=== PATIENT | male | born 1930 | race Caucasian/White ===

== ENCOUNTER 2016-09-25 10:35 | Inpatient (IN) | payer MEDICARE, BC ==
[2016-09-25] MEDS ORDERED: NS 0.9% 1000 ML* 1,000 ML IV ONE (12:08)
[2016-09-25 12:53] LABS: Hematocrit 40 % (42-52); Hemoglobin 13.1 g/dl (14.0-18.0); Mean Corpuscular HGB Conc 32 g/dl (31-36); Mean Corpuscular Hemoglobin 31 pg (27-31); Mean Corpuscular Volume 94 fL (80-94); Mean Platelet Volume 8 um3 (7.4-10.4); Red Blood Count 4.29 10^6/ul (4.0-5.4); Red Cell Distribution Width 17 % (10.5-15)
--- NOTE | 2016-09-25 13:06 | RAD ---
HISTORY: Weakness COMPARISONS: June 24, 2014 VIEWS:1: Single frontal portable view of the chest at 12:35 PM FINDINGS: LINES AND TUBES: None. CARDIOMEDIASTINAL SILHOUETTE: The cardiomediastinal silhouette is normal for portable technique. PLEURA: The costophrenic angles are sharp. No pleural abnormalities are noted. LUNG PARENCHYMA: The lungs are clear. ABDOMEN: The upper abdomen is clear. There is no subphrenic gas. BONES AND SOFT TISSUES: No bone or soft tissue abnormalities are noted. IMPRESSION: NO ACTIVE CARDIOPULMONARY DISEASE.
[2016-09-25 13:09] LABS: C Reactive Protein 94.26 mg/L (< 5.00); Calcium 8.5 mg/dL (8.6-10.3); EGFR Non-African American 53.7 (>60); Globulin 3.7 g/dL (2-4); Magnesium 2.3 mg/dL (1.9-2.7); Potassium 3.4 mmol/L (3.5-5.0); Total Bilirubin 1.8 mg/dL (0.2-1.0); Total Protein 6.7 g/dL (6.4-8.9)
[2016-09-25 13:10] LABS: Troponin I 0.03 ng/mL (<0.04)
[2016-09-25 13:22] LABS: Urine Bacteria Absent (Absent); Urine Bilirubin Negative (Negative); Urine Glucose Negative (Negative); Urine Nitrite Negative (Negative)
[2016-09-25 13:24] LABS: TSH (Thyroid Stimulating Horm) 0.46 mcIU/mL (0.34-5.60)
[2016-09-25 15:01] LABS: Erythrocyte Sed Rate 85 mm/Hr (0-40)
[2016-09-25] MEDS ORDERED: Metoprolol Tartrate IV* 1 MG/ML 5 ML VIAL IV ONE (15:25)
[2016-09-25] MEDS ORDERED: Metoprolol Tartrate TAB* 25 MG PO ONE ×2 (17:58→21:32)
--- NOTE | 2016-09-25 18:02 | ED ---
Carmella Avalos Erika, scribed for Song Louis MD on 09/25/16 at 1246 . Complex/Multi-Sys Presentation - HPI Summary HPI Summary: Patient is an 85-year-old male presenting to the ED with a CC of gradually worsening generalized weakness over the past few months. Per , patient has transitioned from a cane to a walker in this time. Last night, patient developed pain in the left leg - worst at the left buttock and left ankle. Patient slipped out of his bed after the pain began, and was unable to get himself back into bed due to his generalized weakness. Pain has improved, and is now rated a 3/10. Patient was recently diagnosed with polymyalgia rheumatic a few months ago, which believes may be related. Patient also notes back pain when bending over, as well as SOB with exertion and pedal edema. He denies focal weakness, cough, chest congestion, chest pain, abdominal pain, and diarrhea. Hx A Fib - takes metoprolol - had tried Xarelto but led to hematuria. Hx prostate cancer that metastasized to the bone - pt takes Zytiga, and had a prostatectomy. Hx melanoma, necrotizing fasciitis. reports that she would be okay taking care of the pt, but wants her home set up adequately, so requests a psychologist social consult. - History Of Current Complaint Chief Complaint: EDWeakness Time Seen by Provider: 09/25/16 11:30 Hx Obtained From: Patient, Family/Manager Activities - Onset/Duration: Gradual Onset, Lasting Weeks, Worse Since - gradually worsening Timing: Constant Severity Currently: Moderate Severity Initially: Mild Associated Signs And Symptoms: Positive: Weakness, SOB, Edema. Negative: Cough , Chest Pain, Diarrhea, Abdominal Pain - Allergies/Home Medications Allergies/Adverse Reactions: Allergies Allergy/AdvReac Type Severity Reaction Status Date / Time Penicillamine Allergy Unknown Unknown Verified 04/07/14 22:46 Reaction Details Home Medications: Home Medications Abiraterone (NF) [Zytiga (NF)] 1,000 mg PO DAILY 09/25/16 [History Confirmed 03/06] Ascorbic Acid TAB* [Vitamin C TAB*] 500 mg PO DAILY 09/25/16 [History Confirmed 09/25/16] Furosemide TAB* [Lasix TAB*] 80 mg PO DAILY 09/25/16 [History Confirmed 09/25/16 ] Levothyroxine TAB* [Synthroid TAB*] 75 mcg PO DAILY 09/25/16 [History Confirmed 09/25/16] Metoprolol Succinate XL TAB* [Toprol XL TAB*] 50 mg PO DAILY 09/25/16 [History Confirmed 09/25/16] Multiple Vitamins W/ Minerals [Eye Vitamins & Minerals] 1 tab PO BID 09/25/16 [ History Confirmed 09/25/16] Potassium Chloride [Klor-Con Sprinkle] 20 meq PO BID 09/25/16 [History Confirmed 09/25/16] predniSONE TAB* [Deltasone TAB*] 5 mg PO QPM 09/25/16 [History Confirmed ] predniSONE TAB* [Deltasone TAB*] 10 mg PO QAM 09/25/16 [History Confirmed ] PMH/Surg Hx/FS Hx/Imm Hx Endocrine/Hematology History: Reports: Hx Thyroid Disease - Hypo Denies: Hx Diabetes, Hx Systemic Lupus Erythematosus, Hx Sickle Cell Disease Cardiovascular History: Reports: Hx Atrial Fibrillation Denies: Hx Congestive Heart Failure, Hx Hypertension Respiratory History: Denies: Other Respiratory Problems/Disorders History: Denies: Hx Dialysis, Hx Kidney Infection, Hx Kidney Stones, Hx Renal Disease , Other Problems/Disorders Musculoskeletal History: Reports: Other Musculoskeletal History - 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) Denies: Hx Arthritis, Hx Rheumatoid Arthritis, Hx Bursitis, Hx Tendonitis Sensory History: Denies: Hx Cataracts, Hx Contacts or Glasses, Hx Glaucoma, Hx Hearing Aid Opthamlomology History: Denies: Hx Cataracts, Hx Contacts or Glasses, Hx Glaucoma Neurological History: Denies: Other Neuro Impairments/Disorders - Cancer History Cancer Type, Location and Year: PROSTATE CA met to bone Hx Chemotherapy: No - Surgical History Surgery Procedure, Year, and Place: Prostatectomy (1999) Hx Anesthesia Reactions: No - Immunization History Date of Tetanus Vaccine: unknown Infectious Disease History: Yes Infectious Disease History: Denies: Traveled Outside the [place] in Last 30 Days - Family History Known Family History: Negative: Cardiac Disease - Social History Occupation: Retired Lives: With Family Alcohol Use: Occasionally Hx Substance Use: No Substance Use Type: Reports: None Hx Tobacco Use: No Smoking Status (MU): Never Smoked Tobacco Review of Systems Negative: Chest Pain Positive: Shortness Of Breath. Negative: Cough Negative: Abdominal Pain, Diarrhea Musculoskeletal: Other - LLE pain Positive: Myalgia - back pain, Edema - pedal Positive: Weakness All Other Systems Reviewed And Are Negative: Yes Physical Exam Triage Information Reviewed: Yes Vital Signs On Initial Exam: Initial Vitals Temp Pulse Resp BP Pulse Ox 97.4 F 136 15 108/85 91 09/25/16 11:01 09/25/16 11:01 09/25/16 11:01 09/25/16 11:01 09/25/16 11:01 Vital Signs Reviewed: Yes Appearance: Positive: Well-Appearing, No Pain Distress Skin: Positive: Warm, Skin Color Reflects Adequate Perfusion, Dry Head/Face: Positive: Normal Head/Face Inspection Eyes: Positive: EOMI, TUNG ENT: Positive: Normal ENT inspection Neck: Positive: Supple, Nontender Respiratory/Lung Sounds: Positive: Clear to Auscultation, Breath Sounds Present Cardiovascular: Positive: Tachycardia - with irregularly irregular rhythm Abdomen Description: Positive: Nontender, Soft Bowel Sounds: Positive: Present Musculoskeletal: Positive: Other - Generalized weakness. No tenderness to the left hip or buttocks Neurological: Positive: Alert, Oriented to Person Place, Time, Other - No focal neurological deficits. Generalized weakness Psychiatric: Positive: Affect/Mood Appropriate Diagnostics - Vital Signs Vital Signs Temp Pulse Resp BP Pulse Ox 09/25/16 11:01 97.4 F 136 15 108/85 91 - Laboratory Lab Results: Lab Results 09/25/16 09/25/16 09/25/16 Range/Units 12:40 12:40 12:40 WBC 17.0 H (3.5-10.8) 10^3/ul RBC 4.29 (4.0-5.4) 10^6/ul Hgb 13.1 L (14.0-18.0) g/dl Hct 40 L (42-52) % MCV 94 (80-94) fL MCH 31 (27-31) pg MCHC 32 (31-36) g/dl RDW 17 H (10.5-15) % Plt Count 234 (150-450) 10^3/ul MPV 8 (7.4-10.4) um3 Neut % (Auto) 94.1 H (38-83) % Lymph % (Auto) 2.5 L (25-47) % [place] % (Auto) 3.2 (1-9) % Eos % (Auto) 0.1 (0-6) % Baso % (Auto) 0.1 (0-2) % Absolute Neuts (auto) 16.0 H (1.5-7.7) 10^3/ul Absolute Lymphs (auto) 0.4 L (1.0-4.8) 10^3/ul Absolute Monos (auto) 0.5 (0-0.8) 10^3/ul Absolute Eos (auto) 0 (0-0.6) 10^3/ul Absolute Basos (auto) 0 (0-0.2) 10^3/ul Absolute Nucleated RBC 0.02 10^3/ul Nucleated RBC % 0.1 ESR 85 H (0-40) mm/Hr INR (Anticoag Therapy) 1.17 H (0.89-1.11) APTT 29.5 (26.0-36.3) seconds Sodium (133-145) mmol/L Potassium (3.5-5.0) mmol/L Chloride (101-111) mmol/L Carbon Dioxide (22-32) mmol/L Anion Gap (2-11) mmol/L BUN (6-24) mg/dL Creatinine (0.67-1.17) mg/dL Est GFR ( Amer) (>60) Est GFR (Non-Af Amer) (>60) BUN/Creatinine Ratio (8-20) Glucose (70-100) mg/dL Lactic Acid (0.5-2.0) mmol/L Calcium (8.6-10.3) mg/dL Magnesium (1.9-2.7) mg/dL Total Bilirubin (0.2-1.0) mg/dL AST (13-39) U/L ALT (7-52) U/L Alkaline Phosphatase (34-104) U/L CK-MB (CK-2) (0.6-6.3) ng/mL Troponin I (<0.04) ng/mL C-Reactive Protein (< 5.00) mg/L B-Natriuretic Peptide ( - 100) pg/mL Total Protein (6.4-8.9) g/dL Albumin (3.2-5.2) g/dL Globulin (2-4) g/dL Albumin/Globulin Ratio (1-3) Lipase (11.0-82.0) U/L TSH (0.34-5.60) mcIU/mL Urine Color Yellow Urine Appearance Cloudy Urine pH 7.0 (5-9) Ur Specific [facility] 1.005 L (1.010-1.030) Urine Protein Negative (Negative) Urine Ketones Negative (Negative) Urine Blood 2+ H (Negative) Urine Nitrate Negative (Negative) Urine Bilirubin Negative (Negative) Urine Urobilinogen Negative (Negative) Ur Leukocyte Esterase 3+ H (Negative) Urine WBC (Auto) 3+(>20/hpf) H (Absent) Urine RBC (Auto) 3+(>10/hpf) H (Absent) Urine Bacteria Absent (Absent) Urine Glucose Negative (Negative) 09/25/16 09/25/16 09/25/16 Range/Units 12:40 12:40 12:40 WBC (3.5-10.8) 10^3/ul RBC (4.0-5.4) 10^6/ul Hgb (14.0-18.0) g/dl Hct (42-52) % MCV (80-94) fL MCH (27-31) pg MCHC (31-36) g/dl RDW (10.5-15) % Plt Count (150-450) 10^3/ul MPV (7.4-10.4) um3 Neut % (Auto) (38-83) % Lymph % (Auto) (25-47) % [place] % (Auto) (1-9) % Eos % (Auto) (0-6) % Baso % (Auto) (0-2) % Absolute Neuts (auto) (1.5-7.7) 10^3/ul Absolute Lymphs (auto) (1.0-4.8) 10^3/ul Absolute Monos (auto) (0-0.8) 10^3/ul Absolute Eos (auto) (0-0.6) 10^3/ul Absolute Basos (auto) (0-0.2) 10^3/ul Absolute Nucleated RBC 10^3/ul Nucleated RBC % ESR (0-40) mm/Hr INR (Anticoag Therapy) (0.89-1.11) APTT (26.0-36.3) seconds Sodium 135 (133-145) mmol/L Potassium 3.4 L (3.5-5.0) mmol/L Chloride 97 L (101-111) mmol/L Carbon Dioxide 31 (22-32) mmol/L Anion Gap 7 (2-11) mmol/L BUN 23 (6-24) mg/dL Creatinine 1.28 H (0.67-1.17) mg/dL Est GFR ( Amer) 69.0 (>60) Est GFR (Non-Af Amer) 53.7 (>60) BUN/Creatinine Ratio 18.0 (8-20) Glucose 102 H (70-100) mg/dL Lactic Acid 1.5 (0.5-2.0) mmol/L Calcium 8.5 L (8.6-10.3) mg/dL Magnesium 2.3 (1.9-2.7) mg/dL Total Bilirubin 1.80 H (0.2-1.0) mg/dL AST 16 (13-39) U/L ALT 19 (7-52) U/L Alkaline Phosphatase 173 H (34-104) U/L CK-MB (CK-2) 4.4 (0.6-6.3) ng/mL Troponin I 0.03 (<0.04) ng/mL C-Reactive Protein 94.26 H (< 5.00) mg/L B-Natriuretic Peptide 579 H ( - 100) pg/mL Total Protein 6.7 (6.4-8.9) g/dL Albumin 3.0 L (3.2-5.2) g/dL Globulin 3.7 (2-4) g/dL Albumin/Globulin Ratio 0.8 L (1-3) Lipase 16 (11.0-82.0) U/L TSH 0.46 (0.34-5.60) mcIU/mL Urine Color Urine Appearance Urine pH (5-9) Ur Specific [facility] (1.010-1.030) Urine Protein (Negative) Urine Ketones (Negative) Urine Blood (Negative) Urine Nitrate (Negative) Urine Bilirubin (Negative) Urine Urobilinogen (Negative) Ur Leukocyte Esterase (Negative) Urine WBC (Auto) (Absent) Urine RBC (Auto) (Absent) Urine Bacteria (Absent) Urine Glucose (Negative) Result Diagrams: 09/25/16 12:40 09/25/16 12:40 Lab Statement: Any lab studies that have been ordered have been reviewed, and results considered in the medical decision making process. - Radiology CXR Radiology Interpretation Completed By: Radiologist - IMPRESSION: NO ACTIVE CARDIOPULMONARY DISEASE. - EKG 12:56 Cardiac Rate: Tachycardia - at 134 bpm EKG Rhythm: Atrial Fibrillation - Rapid EKG Interpretation: Flipped T waves in V2-V6 Re-Evaluation - Re-Evaluation First Eval Re-Evaluation Time: 13:44 Comment: Discussed blood work, EKG, and CXR results. Discussed plan of care. Patient is still tachycardic and would like to go home. Will discuss with patient's PCP, Dr. Laguna. Re-paged social work for their consult. Complex Multi-Symp Course/Dx Assessment/Plan: ADMIT HOSPITALIST STABLE - Diagnoses Provider Diagnoses: Weakness - Physician Notifications Discussed Care Of Patient With: Dr. Laguna (pt's PCP) at 13:55 - recommends admission for patient. Dr. Vidales (hospitalist) at 14:10 - agrees to admit. Discharge - Discharge Plan Condition: Stable Disposition: ADMITTED TO [facility] documentation as recorded by the Carmella sethi Erika accurately reflects the service I personally performed and the decisions made by me, Song Louis MD.
[2016-09-25] MEDS: predniSONE TAB* 10 MG PO SCH (18:03)
[2016-09-25] MEDS ORDERED: Ciprofloxacin TAB* 500 MG PO SCH (21:36)
--- NOTE | 2016-09-25 22:32 | HP ---
HISTORY AND PHYSICAL: DATE OF ADMISSION: 09/25/16 PRIMARY CARE PHYSICIAN: Dr. Laguna. CHIEF COMPLAINT: Weakness. HISTORY OF PRESENT ILLNESS: Mr. Rodriguez is an 85-year-old man with a past medical history of metastatic prostate cancer on Zytiga; AFib, not currently on anticoagulation; hypothyroidism; history of necrotizing fasciitis of the right thigh; CKD 2; urethroperineal fistula, status post chronic Cole; polymyalgia rheumatica; who presents to the hospital with progressive weakness. History was obtained from the patient and his . They state that the patient has been having problems since over the past 4 to 6 months with weakness that seems to be slowly but steadily progressing. They feel that his problems began last fall around the time he has diagnosed with polymyalgia rheumatica by Dr. Laguna. He initially responded well to prednisone; however, afterwards some of the symptoms returned and it became tougher and tougher for him to get around. He initially used a cane, but is now using a walker. They have noticed over the past week, the weakness seems to have gotten worse. Few nights ago, he was in his recliner chair and was unable to get out by himself and even with his 's help, took a significant amount of effort to get him out of the recliner. He states that this morning, he was in bed and was reaching for a glass of water. He went to swing his legs and had some left leg pain and subsequently was too weak to stay in the bed and slid out of bed on to the floor. His was unable to help him get up, so they called EMS who brought him to the hospital. The patient denies any fever, chills, URI symptoms , nausea, vomiting, shortness of breath, chest pain, abdominal pain. He does endorse fatigue and has chronic lower extremity edema which seems to be about at his baseline at the moment. The patient is followed by Dr. Stone regarding his metastatic prostate cancer and the last imaging done at the end of April 2016 showed some progression of his disease. However, his family states that he was started on Invega in May. PAST MEDICAL HISTORY: AFib, not on anticoagulation; metastatic prostate cancer ; hypothyroidism; polymyalgia rheumatica; CKD 2; history of necrotizing fasciitis; urethroperineal fistula, status post chronic Cole. PAST SURGICAL HISTORY: Right thigh fasciotomy, appendectomy, urethral dilatations, melanoma excision on the patient's face, tonsillectomy. HOME MEDICATIONS: 1. Toprol-XL 50 mg by mouth daily. 2. Klor-Con 20 mEq by mouth 2 times daily. 3. Lasix 80 mg by mouth daily. 4. Multivitamin one tablet by mouth 2 times daily. 5. Synthroid 75 mcg by mouth daily. 6. Prednisone 10 mg by mouth in the morning, 5 mg by mouth in the evening. 7. Vitamin C 500 mg by mouth daily. 8. Zytiga 1000 mg by mouth daily. ALLERGIES: The patient reports allergy to PENICILLIN. FAMILY HISTORY: Significant for mother and father both with cancer. SOCIAL HISTORY: The patient never smoked cigarettes in his life. Rarely drinks alcohol. Denies any illicit drug use. Lives at home with his and his dog. REVIEW OF SYSTEMS: A 12-point review of systems negative except as noted in the HPI. PHYSICAL EXAMINATION GENERAL: The patient is a pleasant elderly man, lying in bed, in no apparent distress. VITAL SIGNS: On admission, temperature 97.4, heart rate of 136, respiratory rate of 15, O2 saturation 91% on room air, blood pressure 108/85. HEENT: Pupils equal, round, and reactive to light and accommodation. Anicteric sclerae. Dry mucous membranes. No cervical adenopathy. LUNGS: Clear to auscultation bilaterally. No wheezes, rales, or rhonchi. CARDIOVASCULAR: Irregularly irregular, tachycardic. No murmurs, gallops, or rubs. ABDOMEN: Soft, nontender, nondistended, obese. Bowel sounds positive. EXTREMITIES: The patient with some mild pitting lower extremity edema to the mid to low parker reportedly at or better than baseline as per the patient's . NEURO: The patient is alert and oriented x3. Strength is 5/5 throughout upper extremities. The patient has some weakness in bilateral hip flexion. No numbness or tingling, or decreased sensation. LABS AND DIAGNOSTICS: White blood cell count of 17, hemoglobin of 13, hematocrit of 40, platelets of 234. INR of 1.17. ESR of 85, CRP of 94. Sodium of 135, potassium 3.4, chloride of 97, carbon dioxide of 31, BUN of 23, creatinine 1.28, glucose of 102, lactic acid of 1.5, magnesium of 2.3, total bilirubin of 1.8, alk phos of 173. B-natriuretic peptide of 579. Lipase of 16. TSH is 0.46. UA with 2+ blood, 3+ leuk esterase, 3+ wbc's, 3+ rbc's. Chest x-ray personally reviewed shows no acute disease. EKG personally reviewed shows AFib, tachycardia, some lateral ST depressions, and T-wave inversions that are likely rate related. ASSESSMENT AND PLAN: Progressive weakness in an 85-year-old male with a past medical history of AFib; metastatic prostate cancer; hypothyroidism; CKD 2; PMR ; urethroperineal fistula, status post chronic Cole catheter. 1. Progressive weakness. No clear etiology at this point. The patient does have an elevated ESR, CRP, and leukocytosis; however, his leukocytosis is a chronic issue. His elevated ESR and CRP could be related to polymyalgia rheumatica and this could be a relapse of this as his family reports it has been worse in the past week. We will increase his home prednisone to 20 mg in the morning and 10 mg at night. If the patient spikes a fever, we will consider an infectious etiology that is higher on the differential; however, at this time, it seems unlikely. However, the patient's chronic Cole and positive UA are always a potential source of infection. We will continue to monitor for now. I have ordered a PT evaluation for the patient. Will get MRI of the spine to evaluate for new mets, cord compression 2. AFib with RVR. The patient is tachycardic in the emergency department. He does seem dry on exam. He has received 1 L bolus in the ED. We will encourage p.o. intake. We will given one dose of IV metoprolol now and continue the patient's home dose of Toprol-XL. He is not on anticoagulation. 3. Hypothyroidism. TSH is within normal limits. Continue home Synthroid. 4. Polymyalgia rheumatica. Treatment as above. 5. Chronic lower extremity edema. We will hold the patient's Lasix for now, as well as his home potassium. We will reevaluate the patient's fluid status tomorrow. 6. DVT prophylaxis. The patient's says he bleeds very easily even on aspirin. We will write for SCDs. TIME SPENT: Total time spent on this admission 45 minutes, with over half the time spent face to face with the patient in counseling and coordinating care. CC: Dr. Laguna.* [id number]/CPS #: [id number] JONAH
[2016-09-25] MEDS: NS 0.9% 1000 ML* 1,000 ML IV SCH (22:49)
[2016-09-26] MEDS ORDERED: Diltiazem DRIP* 100 MG/100 ML ADDV.BAG IVPB ONE (01:02)
[2016-09-26] MEDS ORDERED: Diltiazem DRIP* 100 MG/100 ML ADDV.BAG IVPB SCH (02:00)
[2016-09-26 05:54] LABS: Add Diff/Slide Review? Slide Review Added; Comments Flag Yes; Hematocrit 36 % (42-52); Hemoglobin 11.9 g/dl (14.0-18.0); Mean Corpuscular HGB Conc 33 g/dl (31-36); Mean Corpuscular Hemoglobin 31 pg (27-31); Mean Corpuscular Volume 94 fL (80-94); Mean Platelet Volume 8 um3 (7.4-10.4); Red Blood Count 3.87 10^6/ul (4.0-5.4); Red Cell Distribution Width 17 % (10.5-15); White Blood Count 13.9 10^3/ul (3.5-10.8)
[2016-09-26] MEDS: Levothyroxine TAB* 75 MCG TAB PO SCH (05:58)
[2016-09-26 06:10] LABS: Albumin 2.6 g/dL (3.2-5.2); BUN/Creatinine Ratio 20.6 (8-20); Calcium 8.1 mg/dL (8.6-10.3); EGFR African American 84.9 (>60); Globulin 3.4 g/dL (2-4); Potassium 3.4 mmol/L (3.5-5.0)
[2016-09-26] MEDS: ABIRATERONE 250 MG PO SCH (07:16)
[2016-09-26] MEDS: NS 0.9% 1000 ML* 1,000 ML IV SCH (08:36)
[2016-09-26] MEDS: Metoprolol Tartrate TAB* 100 MG TAB PO SCH ×2 (08:37→20:20)
[2016-09-26] MEDS: Ascorbic Acid TAB* 500 MG PO SCH (08:37)
[2016-09-26] MEDS: predniSONE TAB* 20 MG PO SCH (08:37)
[2016-09-26] MEDS ORDERED: Metoprolol Succinate XL TAB* 50 MG PO SCH (09:00)
[2016-09-26] MEDS: Diltiazem TAB* 30 MG PO SCH ×2 (11:35→18:02)
--- NOTE | 2016-09-26 11:42 | RAD ---
Indication: Low back pain and weakness. Image sequences: Sagittal T1, T2, STIR, axial T1 and T2-weighted images of the lumbar spine were obtained. The vertebral bodies appear normal in height. There is low signal at the S2 vertebra on T1 and T2-weighted sequences. This is incompletely imaged on the axial images and may represent an area of sclerosis. This is not identified on a CT dated May 20, 2016 CT of the sacrum may be helpful. At L5-S1 degenerative disc disease is noted. Minimal spondylitic ridge is noted. No spinal or foraminal stenosis is noted. At L4-L5 degenerative disc disease with minimal broad-based protrusion and spondylitic ridge is noted. There is moderate degree of facet and ligamentous hypertrophy resulting in a moderate degree of spinal stenosis at this level. There may BE bilateral foraminal stenosis at this level due to facet arthropathy. L3-L4 degenerative disc disease with broad-based protrusion and spondylitic ridge flattens the thecal sac. Moderate degree of facet arthropathy is noted. Mild spinal stenosis is noted. At L3-L4 degenerative disc disease with spondylytic ridge flattens the thecal sac. Moderate degree of facet and ligamentous hypertrophy is noted resulting in mild spinal stenosis. At L2-L3 degenerative disc disease with spondylytic ridge flattens the thecal sac. Facet and ligamentous hypertrophy results in mild foraminal stenosis. At L1-L2 degenerative disc disease is noted. IMPRESSION: THERE IS SIGNAL LOSS IN THE S2 VERTEBRA SEEN ONLY ON THE SAGITTAL IMAGES ON BOTH T1 AND T2-WEIGHTED SEQUENCES. THIS MAY REPRESENT A SCLEROTIC LESION ALTHOUGH NONE IS IDENTIFIED ON PREVIOUS CT DATED MAY 20, 2016. BONE SCAN OF THE SAME DATE ALSO DEMONSTRATES NO SPECIFIC UPTAKE OF THIS AREA. AT L4-L5 DEGENERATIVE DISC DISEASE WITH BROAD-BASED PROTRUSION AND SPONDYLITIC RIDGE WELL MARKED BILATERAL FACET ARTHROPATHY RESULTS IN A MODERATE DEGREE OF SPINAL STENOSIS. THERE IS BILATERAL FORAMINAL STENOSIS AT THIS LEVEL. AT L3-L4 SPONDYLITIC RIDGE WITH MODERATE DEGREE OF FACET ARTHROPATHY RESULTS IN A MILD SPINAL STENOSIS AT THIS LEVEL. AT L2-L3 SPONDYLITIC RIDGE WITH MILD FACET ARTHROPATHY RESULTS IN MILD SPINAL STENOSIS AT THIS LEVEL.
--- NOTE | 2016-09-26 12:04 | PN ---
Subjective Date of Service: 09/26/16 Interval History: Patient seen this morning after coming back from MRI. Says he feels about the same as yesterday, no changes. Still weak in LEs. Slight back pain. No fever or chills. Spoke at length with patient's PCP (Dr. Laguna) this morning. Family History: Unchanged from Admission Social History: Unchanged from Admission Past Medical History: Unchanged from Admission Objective Active Medications: Abiraterone Acetate (Zytiga (Nf)) 1,000 mg PO DAILY [facility] Ascorbic Acid (Vitamin C Tab*) 500 mg PO DAILY [facility] Diltiazem HCl (Cardizem Tab*) 30 mg PO Q6HR [facility] Sodium Chloride (Ns 0.9% 1000 Ml*) 1,000 mls @ 100 mls/hr IV PER RATE [facility] Levothyroxine Sodium (Synthroid Tab*) 75 mcg PO DAILY@0600 [facility] Metoprolol Tartrate (Lopressor Tab*) 100 mg PO BID [facility] Prednisone (Deltasone Tab*) 20 mg PO DAILY WITH MEAL [facility] Prednisone (Deltasone Tab*) 10 mg PO 1700 [facility] Vital Signs 09/25/16 09/25/16 09/25/16 15:00 15:20 15:40 Temperature Pulse Rate 128 111 103 Respiratory 25 28 21 Rate Blood Pressure 102/67 103/72 99/70 (mmHg) O2 Sat by Pulse 96 95 95 Oximetry 09/25/16 09/25/16 09/25/16 16:27 16:55 17:50 Temperature 97.6 F 98.3 F Pulse Rate 119 Respiratory 14 20 Rate Blood Pressure 115/81 (mmHg) O2 Sat by Pulse 96 Oximetry 09/25/16 09/25/16 09/25/16 19:27 19:39 20:00 Temperature 99.0 F Pulse Rate 130 86 Respiratory 18 20 Rate Blood Pressure 137/89 (mmHg) O2 Sat by Pulse 96 Oximetry 09/26/16 09/26/16 09/26/16 00:20 01:25 01:30 Temperature 98.1 F Pulse Rate 135 Respiratory 20 28 25 Rate Blood Pressure 97/60 96/71 95/69 (mmHg) O2 Sat by Pulse 93 Oximetry 09/26/16 09/26/16 09/26/16 01:35 01:36 01:40 Temperature Pulse Rate Respiratory 22 23 21 Rate Blood Pressure 107/65 96/66 89/66 (mmHg) O2 Sat by Pulse Oximetry 09/26/16 09/26/16 09/26/16 01:45 02:00 02:14 Temperature Pulse Rate Respiratory 20 22 19 Rate Blood Pressure 103/72 98/72 100/62 (mmHg) O2 Sat by Pulse Oximetry 09/26/16 09/26/16 09/26/16 02:15 02:30 02:45 Temperature Pulse Rate Respiratory 19 24 24 Rate Blood Pressure 100/56 96/70 95/67 (mmHg) O2 Sat by Pulse Oximetry 09/26/16 09/26/16 09/26/16 03:00 03:11 03:29 Temperature 98.5 F Pulse Rate Respiratory 21 24 Rate Blood Pressure 95/66 39/20 (mmHg) O2 Sat by Pulse Oximetry 09/26/16 09/26/16 09:00 11:38 Temperature Pulse Rate 115 Respiratory 19 20 Rate Blood Pressure 104/75 104/68 (mmHg) O2 Sat by Pulse 95 Oximetry Oxygen Devices in Use Now: None Appearance: Elderly, M, laying in bed in NAD Eyes: No Scleral Icterus Ears/Nose/Mouth/Throat: Mucous Membranes Moist Neck: NL Appearance and Movements; NL JVP Respiratory: Symmetrical Chest Expansion and Respiratory Effort, Clear to Auscultation Cardiovascular: - - IRIR, tachycardia Abdominal: NL Sounds; No Tenderness; No Distention, No Hepatosplenomegaly Lymphatic: No Cervical Adenopathy Extremities: - - Mild LE edema Neurological: Alert and Oriented x 3, - - 3/5 strength in B/L hip flexors, distal plantarflexion and dorsiflexion 5/5, UE strength 5/5 Lines/Tubes/Other Access: Clean, Dry and Intact Levin Result Diagrams: 09/26/16 05:37 09/26/16 05:37 Additional Lab and Data: Microbiology and Other Data: Microbiology 09/25/16 16:00 Nasal Screen MRSA (PCR)(MEL) - Final Nasal Mrsa Negative Assess/Plan/Problems-Billing Assessment: Progressive weakness (particularly in LEs), fatigue, AFib with RVR in an 85 yo M with hx of AFib not on AC, metastatic prostate Ca, hypothyroidism, PMR, CKD2, urethroperineal fistula s/p chronic indwelling levin - Patient Problems (1) Weakness Current Visit: Yes Comment: Likely multifactorial. MRI L spine shows some moderate spinal stenosis. Possibly some contribution from PMR, have increased steroids, will recheck ESR/CRP tomorrow. Do not think there is any underlying infection. PT eval pending. (2) Afib Current Visit: Yes Comment: Still tachycardic. Placed on Diltiazem gtt overnight. Spoke with Dr. Laguna who states patient has had difficult HR to treat and he would not go too aggressive with therapy. Will transition patient to oral diltiazem. No AC. (3) Hypothyroidism Current Visit: Yes Comment: Continue synthroid (4) Polymyalgia rheumatica Current Visit: Yes Comment: Continue increased prednisone (5) Edema Current Visit: Yes Comment: Continue to hold Lasix (6) DVT prophylaxis Current Visit: Yes Comment: SCDs Status and Disposition: Inpatient for AFib, weakness. PT eval pending.
[2016-09-26] MEDS: predniSONE TAB* 10 MG PO SCH (16:50)
[2016-09-27] MEDS: Diltiazem TAB* 30 MG PO SCH ×4 (00:14→17:08)
[2016-09-27] MEDS: Levothyroxine TAB* 75 MCG TAB PO SCH (05:33)
[2016-09-27] MEDS: Ascorbic Acid TAB* 500 MG PO SCH (08:15)
[2016-09-27] MEDS: ABIRATERONE 250 MG PO SCH (08:15)
[2016-09-27] MEDS: Metoprolol Tartrate TAB* 100 MG TAB PO SCH ×2 (08:15→20:49)
[2016-09-27] MEDS: predniSONE TAB* 20 MG PO SCH (08:15)
--- NOTE | 2016-09-27 11:27 | PN ---
Subjective Date of Service: 09/27/16 Interval History: Patient seen this morning. Reports continued weakness and some LLE pain. Discussed MRI findings with patient and family ( and son). Did not do well with PT yesterday due to significant weakness. Family History: Unchanged from Admission Social History: Unchanged from Admission Past Medical History: Unchanged from Admission Objective Active Medications: Abiraterone Acetate (Zytiga (Nf)) 1,000 mg PO DAILY [facility] Ascorbic Acid (Vitamin C Tab*) 500 mg PO DAILY [facility] Diltiazem HCl (Cardizem Tab*) 30 mg PO Q6HR BAL Gabapentin (Neurontin Cap(*)) 200 mg PO TID BAL Levothyroxine Sodium (Synthroid Tab*) 75 mcg PO DAILY@0600 [facility] Metoprolol Tartrate (Lopressor Tab*) 100 mg PO BID BAL Prednisone (Deltasone Tab*) 20 mg PO DAILY WITH MEAL BAL Prednisone (Deltasone Tab*) 10 mg PO 1700 [facility] Vital Signs 09/26/16 09/26/16 09/26/16 11:38 15:00 20:00 Temperature 97.3 F Pulse Rate 115 111 Respiratory 20 16 20 Rate Blood Pressure 104/68 113/66 (mmHg) O2 Sat by Pulse 95 95 Oximetry 09/26/16 09/27/16 09/27/16 20:24 00:06 04:44 Temperature 97.7 F 97.8 F 97.6 F Pulse Rate 101 91 55 Respiratory 20 20 Rate Blood Pressure 108/58 120/80 96/57 (mmHg) O2 Sat by Pulse 97 95 95 Oximetry 09/27/16 09/27/16 09/27/16 05:30 06:41 06:45 Temperature Pulse Rate 96 Respiratory 18 18 Rate Blood Pressure 101/53 (mmHg) O2 Sat by Pulse Oximetry 09/27/16 07:51 Temperature 98.3 F Pulse Rate 44 Respiratory 18 Rate Blood Pressure 102/49 (mmHg) O2 Sat by Pulse 96 Oximetry Oxygen Devices in Use Now: None Appearance: Elderly, M, laying in bed in NAD Eyes: No Scleral Icterus Ears/Nose/Mouth/Throat: Mucous Membranes Moist Neck: NL Appearance and Movements; NL JVP Respiratory: Symmetrical Chest Expansion and Respiratory Effort, Clear to Auscultation Cardiovascular: - - IRIR Abdominal: NL Sounds; No Tenderness; No Distention Lymphatic: No Cervical Adenopathy Extremities: - - Mild LE edema Skin: No Rash or Ulcers Neurological: Alert and Oriented x 3, - - LE weakness, mostly in hip flexors Lines/Tubes/Other Access: Clean, Dry and Intact Levin Result Diagrams: 09/26/16 05:37 09/26/16 05:37 Additional Lab and Data: Microbiology and Other Data: Microbiology 09/25/16 16:00 Nasal Screen MRSA (PCR)([facility]) - Final Nasal Mrsa Negative Assess/Plan/Problems-Billing Assessment: Progressive weakness (particularly in LEs), fatigue, AFib with RVR in an 85 yo M with hx of AFib not on AC, metastatic prostate Ca, hypothyroidism, PMR, CKD2, urethroperineal fistula s/p chronic indwelling levin - Patient Problems (1) Weakness Current Visit: Yes Comment: Likely multifactorial. MRI L spine shows some moderate spinal stenosis. Will start gabapentin. ESR/CRP have not responded to increased steroids. Do not think there is any underlying infection. Patient very weak with PT, will need placement. Family would prefer to take him home but they understand this would be a huge undertaking, to discuss rehab options, will place PMRU referral as well (2) Afib Current Visit: Yes Comment: Continue Metoprolol and Diltiazem. No AC. (3) Hypothyroidism Current Visit: Yes Comment: Continue synthroid (4) Polymyalgia rheumatica Current Visit: Yes Comment: Resume home prednisone (5) Edema Current Visit: Yes Comment: Continue to hold Lasix (6) DVT prophylaxis Current Visit: Yes Comment: SCDs Status and Disposition: Inpatient for AFib, weakness. Will likely need MINDY
[2016-09-27] MEDS: Gabapentin CAP(*) 100 MG PO SCH ×2 (13:05→20:53)
[2016-09-27] MEDS ORDERED: predniSONE TAB* 5 MG PO SCH (17:00)
[2016-09-27] MEDS ORDERED: Metoprolol Tartrate TAB* 25 MG PO ONE (20:30)
[2016-09-27] MEDS: Magnesium Hydroxide LIQ* 30 ML UDC PO SCH (20:54)
[2016-09-28] MEDS: Magnesium Hydroxide LIQ* 30 ML UDC PO SCH (00:21)
[2016-09-28] MEDS: Diltiazem TAB* 30 MG PO SCH ×4 (01:07→17:17)
[2016-09-28] MEDS: Levothyroxine TAB* 75 MCG TAB PO SCH (05:43)
[2016-09-28] MEDS: Gabapentin CAP(*) 100 MG PO SCH ×3 (08:04→21:20)
[2016-09-28] MEDS: ABIRATERONE 250 MG PO SCH (08:04)
[2016-09-28] MEDS: Metoprolol Tartrate TAB* 100 MG TAB PO SCH ×2 (08:05→21:17)
[2016-09-28] MEDS: Ascorbic Acid TAB* 500 MG PO SCH (08:05)
[2016-09-28] MEDS ORDERED: predniSONE TAB* 10 MG PO SCH (08:30)
--- NOTE | 2016-09-28 09:08 | PN ---
Subjective Date of Service: 09/28/16 Interval History: Patient seen this morning. States he was up in the chair yesterday, noted he was quite weak when he attempted to stand. Has been doing exercises and notices some improvement in LE strength this morning. No new complaints. Family History: Unchanged from Admission Social History: Unchanged from Admission Past Medical History: Unchanged from Admission Objective Active Medications: Abiraterone Acetate (Zytiga (Nf)) 1,000 mg PO DAILY [facility] Ascorbic Acid (Vitamin C Tab*) 500 mg PO DAILY [facility] Diltiazem HCl (Cardizem Tab*) 30 mg PO Q6HR BAL Gabapentin (Neurontin Cap(*)) 200 mg PO TID [facility] Levothyroxine Sodium (Synthroid Tab*) 75 mcg PO DAILY@0600 [facility] Metoprolol Tartrate (Lopressor Tab*) 100 mg PO BID BAL Prednisone (Deltasone Tab*) 5 mg PO 1700 [facility] Prednisone (Deltasone Tab*) 10 mg PO DAILY WITH MEAL [facility] Vital Signs 09/27/16 09/27/16 09/27/16 11:52 13:05 15:26 Temperature 97.2 F 97.4 F Pulse Rate 94 48 Respiratory 18 16 17 Rate Blood Pressure 108/64 90/60 (mmHg) O2 Sat by Pulse 95 94 Oximetry 09/27/16 09/27/16 09/27/16 17:16 19:35 20:00 Temperature 97.2 F Pulse Rate 92 90 Respiratory 16 18 18 Rate Blood Pressure 105/59 93/56 (mmHg) O2 Sat by Pulse 95 Oximetry 09/27/16 09/27/16 09/28/16 20:53 22:53 00:22 Temperature Pulse Rate 77 Respiratory 18 18 Rate Blood Pressure 97/62 (mmHg) O2 Sat by Pulse Oximetry 09/28/16 09/28/16 09/28/16 00:36 03:41 05:35 Temperature 97.3 F 98.0 F Pulse Rate 69 98 Respiratory 16 20 Rate Blood Pressure 96/60 90/68 (mmHg) O2 Sat by Pulse 96 Oximetry 09/28/16 09/28/16 07:31 08:04 Temperature 97.1 F Pulse Rate 57 Respiratory 16 Rate Blood Pressure 109/63 (mmHg) O2 Sat by Pulse 98 Oximetry Oxygen Devices in Use Now: None Appearance: Elderly, M, laying in bed in NAD Eyes: No Scleral Icterus Ears/Nose/Mouth/Throat: Mucous Membranes Moist Neck: NL Appearance and Movements; NL JVP Respiratory: Symmetrical Chest Expansion and Respiratory Effort, Clear to Auscultation Cardiovascular: - - IRIR Abdominal: NL Sounds; No Tenderness; No Distention Lymphatic: No Cervical Adenopathy Extremities: - - Mild LE edema Skin: No Rash or Ulcers Neurological: Alert and Oriented x 3, - - Slight improvement in LE hip flexors this AM although still quite weak, remainder of LE exam unchanged Result Diagrams: 09/26/16 05:37 09/26/16 05:37 Additional Lab and Data: Microbiology and Other Data: Microbiology 09/25/16 16:00 Nasal Screen MRSA (PCR)([facility]) - Final Nasal Mrsa Negative Assess/Plan/Problems-Billing Assessment: Progressive weakness (particularly in LEs), fatigue, AFib with RVR in an 85 yo M with hx of AFib not on AC, metastatic prostate Ca, hypothyroidism, PMR, CKD2, urethroperineal fistula s/p chronic indwelling levin - Patient Problems (1) Weakness Current Visit: Yes Comment: Likely multifactorial. MRI L spine shows some moderate spinal stenosis. Continue gabapentin. Patient very weak with PT, will need placement. Family would prefer to take him home but they understand this would be a huge undertaking, to discuss rehab options, will place PMRU referral as well (2) Afib Current Visit: Yes Comment: Continue Metoprolol and Diltiazem. No AC. Stop tele. (3) Hypothyroidism Current Visit: Yes Comment: Continue synthroid (4) Polymyalgia rheumatica Current Visit: Yes Comment: Home prednisone (5) Edema Current Visit: Yes Comment: Continue to hold Lasix (6) DVT prophylaxis Current Visit: Yes Comment: SCDs Status and Disposition: Inpatient for AFib, weakness. Will likely need MINDY
[2016-09-28] MEDS ORDERED: predniSONE TAB* 50 MG PO ONE (11:13)
[2016-09-29] MEDS: Diltiazem TAB* 30 MG PO SCH ×4 (01:03→17:42)
[2016-09-29] MEDS: Levothyroxine TAB* 75 MCG TAB PO SCH (05:26)
[2016-09-29] MEDS: Gabapentin CAP(*) 100 MG PO SCH ×3 (09:22→20:42)
[2016-09-29] MEDS: predniSONE TAB* 20 MG PO SCH (09:23)
[2016-09-29] MEDS: Ascorbic Acid TAB* 500 MG PO SCH (09:23)
[2016-09-29] MEDS: Metoprolol Tartrate TAB* 100 MG TAB PO SCH ×2 (09:25→20:44)
[2016-09-29] MEDS: ABIRATERONE 250 MG PO SCH (09:31)
--- NOTE | 2016-09-29 14:35 | PN ---
Subjective Date of Service: 09/29/16 Interval History: Patient seen this morning. No complaints. Says he thinks he continues to have improvement in the LEs with his exercises. Denies pain. Family History: Unchanged from Admission Social History: Unchanged from Admission Past Medical History: Unchanged from Admission Objective Active Medications: Abiraterone Acetate (Zytiga (Nf)) 1,000 mg PO DAILY [facility] Ascorbic Acid (Vitamin C Tab*) 500 mg PO DAILY [facility] Diltiazem HCl (Cardizem Tab*) 30 mg PO Q6HR [facility] Gabapentin (Neurontin Cap(*)) 200 mg PO TID [facility] Levothyroxine Sodium (Synthroid Tab*) 75 mcg PO DAILY@0600 [facility] Metoprolol Tartrate (Lopressor Tab*) 100 mg PO BID [facility] Prednisone (Deltasone Tab*) 60 mg PO DAILY WITH MEAL [facility] Vital Signs 09/28/16 09/28/16 09/28/16 15:21 15:28 17:21 Temperature 98.9 F Pulse Rate 69 Respiratory 16 16 Rate Blood Pressure 94/63 (mmHg) O2 Sat by Pulse 98 Oximetry 09/28/16 09/29/16 09/29/16 23:20 00:45 03:56 Temperature 97.5 F 97.4 F Pulse Rate 63 74 Respiratory 16 16 16 Rate Blood Pressure 94/58 96/64 (mmHg) O2 Sat by Pulse 96 93 Oximetry 09/29/16 09/29/16 09/29/16 05:18 07:43 07:55 Temperature 97.4 F Pulse Rate 73 102 Respiratory 20 16 Rate Blood Pressure 101/60 103/80 (mmHg) O2 Sat by Pulse 98 Oximetry 09/29/16 09/29/16 09/29/16 09:22 11:22 11:35 Temperature 97.2 F Pulse Rate 98 Respiratory 18 16 16 Rate Blood Pressure 106/63 (mmHg) O2 Sat by Pulse 98 Oximetry Oxygen Devices in Use Now: None Appearance: Elderly, M, laying in bed in NAD Eyes: No Scleral Icterus Ears/Nose/Mouth/Throat: Mucous Membranes Moist Neck: NL Appearance and Movements; NL JVP Respiratory: Symmetrical Chest Expansion and Respiratory Effort, Clear to Auscultation Cardiovascular: NL Sounds; No Murmurs; No JVD, - - IRIR Abdominal: NL Sounds; No Tenderness; No Distention Lymphatic: No Cervical Adenopathy Extremities: - - B/L LE edema Neurological: Alert and Oriented x 3, - - Slight improvement in hip flexors Lines/Tubes/Other Access: Clean, Dry and Intact Levin Result Diagrams: 09/26/16 05:37 09/26/16 05:37 Additional Lab and Data: Microbiology and Other Data: Microbiology 09/25/16 16:00 Nasal Screen MRSA (PCR)([facility]) - Final Nasal Mrsa Negative Assess/Plan/Problems-Billing Assessment: Progressive weakness (particularly in LEs), fatigue, AFib with RVR in an 85 yo M with hx of AFib not on AC, metastatic prostate Ca, hypothyroidism, PMR, CKD2, urethroperineal fistula s/p chronic indwelling levin - Patient Problems (1) Weakness Current Visit: Yes Comment: Likely multifactorial. MRI L spine shows some moderate spinal stenosis. Continue gabapentin. Dr. Laguna recommended burst of prednisone 60 mg daily (started 09/28). Patient very weak with PT, will need placement. Family would prefer to take him home but they understand this would be a huge undertaking, to discuss rehab options, will place PMRU referral as well (2) Afib Current Visit: Yes Comment: Continue Metoprolol and Diltiazem. No AC. Stop tele. (3) Hypothyroidism Current Visit: Yes Comment: Continue synthroid (4) Polymyalgia rheumatica Current Visit: Yes Comment: Prednisone 60 mg daily (Day 2). Improvement in inflammatory markers (5) Edema Current Visit: Yes Comment: Continue to hold Lasix (6) DVT prophylaxis Current Visit: Yes Comment: SCDs Status and Disposition: Inpatient for AFib, weakness. Will likely need MINDY
[2016-09-30] MEDS: Diltiazem TAB* 30 MG PO SCH ×4 (00:06→17:57)
[2016-09-30] MEDS: Levothyroxine TAB* 75 MCG TAB PO SCH (06:09)
[2016-09-30] MEDS: Gabapentin CAP(*) 100 MG PO SCH ×3 (10:12→20:46)
[2016-09-30] MEDS: predniSONE TAB* 20 MG PO SCH (10:12)
[2016-09-30] MEDS: ABIRATERONE 250 MG PO SCH (10:12)
[2016-09-30] MEDS: Ascorbic Acid TAB* 500 MG PO SCH (10:12)
[2016-09-30] MEDS: Metoprolol Tartrate TAB* 100 MG TAB PO SCH ×2 (10:13→20:48)
[2016-09-30 11:24] LABS: C Reactive Protein 22.36 mg/L (< 5.00)
--- NOTE | 2016-09-30 13:08 | PN ---
Subjective Date of Service: 09/30/16 Interval History: Patient seen this afternoon. Reports no new complaints. Was pleased with his progress with PT today, was able to use EZstand to stand up and get to the chair. Family History: Unchanged from Admission Social History: Unchanged from Admission Past Medical History: Unchanged from Admission Objective Active Medications: Abiraterone Acetate (Zytiga (Nf)) 1,000 mg PO DAILY [facility] Ascorbic Acid (Vitamin C Tab*) 500 mg PO DAILY [facility] Diltiazem HCl (Cardizem Tab*) 30 mg PO Q6HR [facility] Gabapentin (Neurontin Cap(*)) 200 mg PO TID [facility] Levothyroxine Sodium (Synthroid Tab*) 75 mcg PO DAILY@0600 [facility] Metoprolol Tartrate (Lopressor Tab*) 100 mg PO BID [facility] Prednisone (Deltasone Tab*) 60 mg PO DAILY WITH MEAL [facility] Vital Signs 09/29/16 09/29/16 09/29/16 13:17 15:17 16:02 Temperature 97.4 F Pulse Rate 50 Respiratory 16 18 Rate Blood Pressure 108/59 (mmHg) O2 Sat by Pulse 98 Oximetry 09/29/16 09/29/16 09/29/16 16:46 19:53 20:42 Temperature Pulse Rate 104 Respiratory 18 18 Rate Blood Pressure (mmHg) O2 Sat by Pulse Oximetry 09/29/16 09/30/16 09/30/16 23:52 07:35 07:59 Temperature 97.4 F Pulse Rate 60 156 Respiratory 16 18 18 Rate Blood Pressure 111/80 110/65 (mmHg) O2 Sat by Pulse 97 96 Oximetry 09/30/16 09/30/16 09/30/16 08:15 09:56 10:12 Temperature 97.6 F Pulse Rate 100 42 Respiratory 18 16 Rate Blood Pressure 105/63 (mmHg) O2 Sat by Pulse 95 Oximetry 09/30/16 11:33 Temperature 99.0 F Pulse Rate 115 Respiratory 16 Rate Blood Pressure 110/53 (mmHg) O2 Sat by Pulse 98 Oximetry Oxygen Devices in Use Now: None Appearance: Elderly, M, laying in bed in NAD Eyes: No Scleral Icterus Ears/Nose/Mouth/Throat: Mucous Membranes Moist Neck: NL Appearance and Movements; NL JVP Respiratory: Symmetrical Chest Expansion and Respiratory Effort, Clear to Auscultation Cardiovascular: - - IRIR Abdominal: NL Sounds; No Tenderness; No Distention Lymphatic: No Cervical Adenopathy Extremities: - - Improvement in LE edema Skin: No Rash or Ulcers Neurological: Alert and Oriented x 3, - - Hip flexor strength down a bit from yesterday, may be from fatigue Result Diagrams: 09/26/16 05:37 09/26/16 05:37 Additional Lab and Data: Microbiology and Other Data: Microbiology 09/25/16 16:00 Nasal Screen MRSA (PCR)([facility]) - Final Nasal Mrsa Negative Assess/Plan/Problems-Billing Assessment: Progressive weakness (particularly in LEs), fatigue, AFib with RVR in an 85 yo M with hx of AFib not on AC, metastatic prostate Ca, hypothyroidism, PMR, CKD2, urethroperineal fistula s/p chronic indwelling levin - Patient Problems (1) Weakness Current Visit: Yes Comment: Likely multifactorial. MRI L spine shows some moderate spinal stenosis. Continue gabapentin. Dr. Laguna recommended burst of prednisone 60 mg daily (started 09/28), will continue. He will contact Dr. 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 Patient will need placement. (2) Afib Current Visit: Yes Comment: Continue Metoprolol and Diltiazem. No AC. Has been difficult to control in the past, OK with non-persistent episodes of tachycardia. (3) Hypothyroidism Current Visit: Yes Comment: Continue synthroid (4) Polymyalgia rheumatica Current Visit: Yes Comment: Prednisone 60 mg daily (Day 3). Continued improvement in inflammatory markers (5) Edema Current Visit: Yes Comment: Continue to hold Lasix (6) DVT prophylaxis Current Visit: Yes Comment: SCDs Status and Disposition: Inpatient for AFib, weakness, PMR. Will likely need MINDY
[2016-09-30] MEDS ORDERED: Diltiazem TAB* 30 MG PO ONE (23:59)
[2016-10-01] MEDS: Levothyroxine TAB* 75 MCG TAB PO SCH (05:47)
[2016-10-01 07:40] VITALS: BP 95/57
[2016-10-01] MEDS ORDERED: Diltiazem CD CAP* 120 MG PO SCH (09:00)
[2016-10-01] MEDS: Gabapentin CAP(*) 100 MG PO SCH (09:03)
[2016-10-01] MEDS: Ascorbic Acid TAB* 500 MG PO SCH (09:03)
[2016-10-01] MEDS: ABIRATERONE 250 MG PO SCH (09:04)
[2016-10-01] MEDS: predniSONE TAB* 20 MG PO SCH (09:04)
[2016-10-01] MEDS: Metoprolol Tartrate TAB* 100 MG TAB PO SCH (09:04)
--- NOTE | 2016-10-01 11:49 | DS ---
CC: Dr. Laguna DISCHARGE SUMMARY: DATE OF ADMISSION: 09/25/16 DATE OF DISCHARGE: 10/01/16 PRIMARY CARE PHYSICIAN: Dr. Laguna. PRINCIPAL DISCHARGE DIAGNOSIS: Bilateral lower extremity weakness, possibly due to polymyalgia rheu matica and spinal stenosis. SECONDARY DIAGNOSES: 1. History of metastatic prostate cancer, on Zytiga. 2. Atrial fibrillation, not on anticoagulation. 3. Hypothyroidism. 4. Chronic kidney disease 2. 5. History of necrotizing fasciitis. 6. Urethroperineal fistula status post chronic Cole. DISCHARGE MEDICATION REGIMEN: 1. Diltiazem 120 mg by mouth daily. 2. Gabapentin 200 mg by mouth 3 times daily. 3. Metoprolol tartrate 100 mg by mouth 2 times daily. 4. Prednisone 60 mg by mouth daily. 5. Zytiga 1000 mg by mouth daily. 6. Vitamin C 500 mg by mouth daily. 7. Synthroid 75 mcg by mouth daily. 8. Multivitamin 1 tablet by mouth 2 times daily. STUDIES DONE DURING HOSPITALIZATION: Chest x-ray, impression: No active cardiopulmonary disease. MRI of the lumbar spine, impression: Possible sclerotic lesion in the S2 vertebrae and L4-L5 degene rative disk disease with broad-based protrusion and spondylitic ridge as well as marked bilateral fa cet arthropathy resulting in a moderate degree of spinal stenosis. There is bilateral foraminal radha nosis at this level. At L3- L4, spondylitic ridge with moderate degree of facet arthropathy resulti ng in mild spinal stenosis. At L2-L3, spondylitic ridge with mild facet arthropathy resulting in mi ld spinal stenosis. HISTORY OF PRESENT ILLNESS AND HOSPITAL SUMMARY: Please see my history and physical from 09/25/16 f or details. Briefly, Mr. Rodriguez is an 85-year-old male with a past medical history as above, who p resented to the hospital with progressive weakness. This had been worsening over the past weeks to months and has gotten to the point now where he was unable to get up from a chair and the day of adm ission he was reaching for a glass of water at his bed, he went to swing his legs out and slid out o f bed and was unable to get up. The patient had relatively benign labs in the hospital aside from a n elevated CRP and some mild AYESHA on admission. He has chronically elevated white blood cell count, which was slightly higher when he came in. Imaging was done as above that showed some spinal stenos is. It was felt that this could possibly due to polymyalgia rheumatica. I initially doubled his pr ednisone dose to 20 mg by mouth in the morning and 10 mg by mouth in the evening; however, this did not seem to have any effect on his inflammatory markers. I spoke further with Dr. Laguna in consul tation with Dr. Stone, recommended increasing him to 60 mg daily, which was started on 09/28/16. Ove r the following days his CRP began to drop. He had some improved lower extremity strength prior to the increased prednisone but he continued to move in the right direction. He was noted to be in [place] b during this hospitalization with rates occasionally uncontrolled; however, in speaking with Dr. Awilda holley, he has been notoriously difficult to control. Cardizem was added during this hospitalization and will be continued; however, would not titrate up his medications too much unless the patient be comes symptomatic. Prior to discharge, Dr. Laguna was going to discuss with Dr. Brady whether the patient may benefit from methotrexate or some other DMARD if this is possibly paraneoplastic-related polymyalgia rheuma codie. For now, we will continue the patient on 60 mg of prednisone until this is worked out further over the following days. The patient will be transferred to the [facility] for further rehab. TIME SPENT: Total time spent on this discharge, 35 minutes. This is a summary of the hospitalization; please see the full medical record for further details. [id number]/[facility] #: [id number]
== END 2016-10-01 10:30 | DRG 546 ==
LOC: ED 10:35 → MEDTELE 14:45 → SSU 09-30 22:00
PROVIDERS: ADMIT Hospitalist; ATTEND Hospitalist
DX: M35.3 Polymyalgia rheumatica (principal); C79.51 Secondary malignant neoplasm of bone; I48.91 Unspecified atrial fibrillation; C61 Malignant neoplasm of prostate; E03.9 Hypothyroidism, unspecified; D72.829 Elevated white blood cell count, unspecified; M48.06 Spinal stenosis, lumbar region; N18.2 Chronic kidney disease, stage 2 (mild); R60.0 Localized edema; R00.0 Tachycardia, unspecified; Z79.52 Long term (current) use of systemic steroids; Z88.0 Allergy status to penicillin; Z80.9 Family history of malignant neoplasm, unspecified; Z28.21 Immunization not carried out because of patient refusal; Z85.820 Personal history of malignant melanoma of skin
CPT/HCPCS: 36415; 71010; 72148; 80053; 81003; 81015; 82550; 82553; 83605; 83690; 83735; 83880; 84145; 84443; 84484; 85025; 85610; 85652; 85730; 86140; 87086; 87641; 93005; A9270-GY; J3490; J7512

== ENCOUNTER 2016-10-01 08:08 | Inpatient (IN) | payer MEDICARE, BC ==
[2016-10-01] MEDS ORDERED: Magnesium Hydroxide LIQ* 30 ML UDC PO PRN (14:05)
[2016-10-01] MEDS ORDERED: Acetaminophen TAB* 325 MG PO PRN (14:05)
[2016-10-01] MEDS ORDERED: Bisacodyl SUPP* 10 MG SUPP PR PRN (14:05)
[2016-10-01] MEDS ORDERED: Senna TAB PO PRN (14:05)
[2016-10-01] MEDS: Docusate CAP* 100 MG PO SCH (19:52)
[2016-10-01] MEDS: Gabapentin CAP(*) 100 MG PO SCH (19:58)
[2016-10-01] MEDS: Metoprolol Tartrate TAB* 100 MG TAB PO SCH (19:58)
--- NOTE | 2016-10-01 22:21 | HP ---
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 HISTORY OF PRESENT ILLNESS: Gonzales Rodriguez is an 85-year-old male. He has a medical history significant for metastatic prostate cancer. He currently takes Zytiga 1000 mg daily for this. The patient additionally has a history of atrial fibrillation but is not on anticoagulation. He was on Xarelto in the past but apparently had a GI bleed. He also does not take aspirin because of the history of GI bleed. The patient has a history of an episode of necrotizing fasciitis, which occurred in his right side following a Cole catheter insertion. The patient has a chronic Cole catheter since that time. He was on the rehab unit in 2012 because of weakness in his right lower extremity as a result of the necrotizing fasciitis. The patient came to [facility] s emergency room acutely on 09/25/16. He was complaining of 6 months of lower extremity weakness. He had been diagnosed with polymyalgia rheumatica by his primary care doctor. He seemed to respond well initially to prednisone. He was taking 10 mg in the morning and 5 mg in the evening. However, starting at the beginning of September, the weakness got precipitously worse. The patient was not able to get out of bed by himself, not able to get back into bed by himself. One day, when he was not able to get out of bed at well, he was brought to [facility]'s emergency room. He was admitted September 25. While on the medical service, he had an MRI of his lumbar spine that showed degenerative disk disease at L4-5 with bilateral foraminal stenosis at the levels. There was also mild foraminal stenosis seen at L3-4. There was nothing to explain the symptoms. The patient's prednisone was increased to 60 mg daily. His C-reactive protein seemed to begin to decline after that. It went from 94.26 to 38 to 22. The drop in C-reactive protein corresponded to strengthening of his lower extremities. He is still on prednisone 60 at this time. 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 The patient is felt to have physical therapy and occupational therapy needs. He is now being admitted for inpatient rehab so that he might return to independent living. PAST MEDICAL HISTORY: Significant for the aforementioned metastatic prostate cancer. He also has a history of necrotizing fasciitis. He has a chronic Cole catheter. He has a history of hypothyroidism and paroxysmal atrial fibrillation. CURRENT MEDICATIONS: Include: 1. Lopressor 100 mg twice a day. 2. He is also on Cardizem CD 120 mg daily. 3. Synthroid 75 mcg daily. 4. Prednisone 60 mg daily. 5. Zytiga 1000 mg daily. ALLERGIES: To PENICILLIN. SOCIAL HISTORY: The patient is a nonsmoker, rare drinker. He lives with his in a [place] in the [facility]. REVIEW OF SYSTEMS: The patient reports no current shortness of breath or chest pain. PHYSICAL EXAMINATION VITAL SIGNS: Temperature is 98.3, blood pressure is 100/57, pulse 82, and respirations 16. HEENT: His extraocular movements are intact. Tongue is midline. NECK: Supple. LUNGS: Sounds clear to auscultation bilaterally. HEART: Sounds regular. S1 and S2 audible. ABDOMEN: Soft and nontender. EXTREMITIES: He has trace edema in both lower extremities. NEUROLOGIC: He is awake, alert, and oriented. Muscle strength is 5/5 in both upper and lower extremities. FUNCTIONAL EXAM: The patient transfers with minimal amount of assistance. 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 PLAN: Our plan is integrate him into a comprehensive and therapeutic rehab program with the following goals: 1. Physical Therapy will work with the patient. They are going to work on functional transfer training and ambulation training with a walker. 2. Occupational Therapy will see the patient and work on his activities of daily living including toileting and toilet transfers. 3. PABLITO stockings for DVT prophylaxis. At this point, we are not going to start him on heparin because of his history of bleeding but we are going to try to delve into this history with Dr. Laguna. 4. His bowels will be regulated. 5. Adequate analgesia. 6. Continue prednisone at 60 mg daily. Follow C-reactive protein. At some point, we are going to try to taper his prednisone. 7. Continue Synthroid for hypothyroidism. 8. Continue his Zytiga for prostate cancer. 9. Continue gabapentin for neuropathic pain. 10. Family training as appropriate. 11. client services manager will be closely involved to make sure that any services and equipment that the patient requires are in place prior to discharge. 12. Advance directives: The patient did not wish to have CPR done in case his heart stops beating. We have written a DNR order in the chart, filled out a MOLST form. He did request intubation for respiratory distress if he was still breathing and had a pulse but was in distress. 13. Home with appropriate services. ESTIMATED LENGTH OF STAY: Two weeks. [id number]/CPS #: [id number] JONAH
[2016-10-02] MEDS: Levothyroxine TAB* 75 MCG TAB PO SCH (06:05)
[2016-10-02] MEDS: ABIRATERONE 250 MG PO SCH (06:06)
[2016-10-02] MEDS: Diltiazem CD CAP* 120 MG PO SCH (08:25)
[2016-10-02] MEDS: Ascorbic Acid TAB* 500 MG PO SCH (08:25)
[2016-10-02] MEDS: Gabapentin CAP(*) 100 MG PO SCH ×3 (08:25→20:12)
[2016-10-02] MEDS: predniSONE TAB* 20 MG PO SCH (08:25)
[2016-10-02] MEDS: Docusate CAP* 100 MG PO SCH ×2 (08:25→20:12)
[2016-10-02] MEDS: Metoprolol Tartrate TAB* 100 MG TAB PO SCH ×2 (08:25→20:12)
[2016-10-02 08:27] LABS: Hematocrit 41 % (42-52); Hemoglobin 13.5 g/dl (14.0-18.0); Mean Corpuscular HGB Conc 33 g/dl (31-36); Mean Corpuscular Hemoglobin 31 pg (27-31); Mean Corpuscular Volume 95 fL (80-94); Mean Platelet Volume 8 um3 (7.4-10.4); Red Blood Count 4.37 10^6/ul (4.0-5.4); Red Cell Distribution Width 17 % (10.5-15); White Blood Count 13.3 10^3/ul (3.5-10.8)
[2016-10-02 08:39] LABS: Albumin 2.7 g/dL (3.2-5.2); C Reactive Protein 16.86 mg/L (< 5.00); Calcium 7.7 mg/dL (8.6-10.3); EGFR African American 118.7 (>60); EGFR Non-African American 92.3 (>60); Globulin 3.5 g/dL (2-4); Potassium 4.4 mmol/L (3.5-5.0); Total Bilirubin 0.8 mg/dL (0.2-1.0); Total Protein 6.2 g/dL (6.4-8.9)
[2016-10-03] MEDS: Levothyroxine TAB* 75 MCG TAB PO SCH (05:34)
[2016-10-03] MEDS: Diltiazem CD CAP* 120 MG PO SCH (09:14)
[2016-10-03] MEDS: Metoprolol Tartrate TAB* 100 MG TAB PO SCH (09:14)
[2016-10-03] MEDS: Ascorbic Acid TAB* 500 MG PO SCH (09:14)
[2016-10-03] MEDS: predniSONE TAB* 20 MG PO SCH (09:14)
[2016-10-03] MEDS: Gabapentin CAP(*) 100 MG PO SCH ×3 (09:14→20:15)
[2016-10-03] MEDS: Docusate CAP* 100 MG PO SCH ×2 (09:15→20:15)
[2016-10-03] MEDS: ABIRATERONE 250 MG PO SCH (14:17)
[2016-10-03] MEDS: Famotidine TAB* 20 MG PO SCH (20:16)
[2016-10-03] MEDS: Metoprolol Tartrate TAB* 25 MG PO SCH (20:16)
[2016-10-04] MEDS: Levothyroxine TAB* 75 MCG TAB PO SCH (05:28)
[2016-10-04] MEDS: ABIRATERONE 250 MG PO SCH (06:51)
[2016-10-04] MEDS: Gabapentin CAP(*) 100 MG PO SCH ×3 (08:47→18:40)
[2016-10-04] MEDS: Methotrexate TAB* 2.5 MG PO SCH (08:47)
[2016-10-04] MEDS: predniSONE TAB* 20 MG PO SCH (08:47)
[2016-10-04] MEDS: Folic Acid TAB* 1 MG PO SCH (08:47)
[2016-10-04] MEDS: Famotidine TAB* 20 MG PO SCH ×2 (08:48→18:42)
[2016-10-04] MEDS: Diltiazem CD CAP* 120 MG PO SCH (08:48)
[2016-10-04] MEDS: Docusate CAP* 100 MG PO SCH ×2 (08:48→22:39)
[2016-10-04] MEDS: Ascorbic Acid TAB* 500 MG PO SCH (08:48)
[2016-10-04] MEDS: Metoprolol Tartrate TAB* 25 MG PO SCH ×2 (08:48→18:42)
--- NOTE | 2016-10-04 13:06 | PMRUTEAM ---
PMRU: Goals Current Status: Nursing: Current Status Skin Deviations [Generalized] Bruise Skin Deviations [Groin] Rash Skin Deviation Description [ both arms Generalized] Skin Deviation Description [ redness, #3 lotion Groin] Physical Therapy: Current Status Bed Mobility Assistance Mod Assist,2 or More Person Assist Transfer Moblility Assistance Supervision,Contact Guard Assist Transfer/Bed Mobility Rolling Walker Recommended Devices Ambulation Assistance Supervision,Contact Guard Assist Ambulation Assistive Devices Rolling Walker Number of Feet Patient 65' and 55' Ambulated Stairs Assistance Not Tested Stairs Recommended Devices Two Rails Number of Stairs 5 Curb Not Tested Occupational Therapy: Current Status Upper Body Dressing Supervision Lower Body Dressing Max Asst Bathing Supervision,Mod Assist Toileting 2 Person Assist Toilet Transfer Min Assist,2 Person Assist Shower Transfer Min Assist Eating Independent Rec Therapy: Current Status Summary of Assessment and Pt. was open to conversation - had a good sense of Clinical Impression humor and identified with many interests. Pt. states he enjoys his life very much. Pt. was interested in crossword puzzles and continued leisure visits. Treatment Goals Pt. will engage in leisure activities while on the unit. Treatment Plan Provide RT services and encourage involvement. Social Work: Current Status Discharge Plan return home with home care svs and family support Potential for Family Training pt's is involved and supportive Anticipated Discharge Home Destination Discharge With home care svs and family support Goals: Physical Therapy: Initial Goals Bed Mobility Assistance Independent Transfer Mobility Assistance Independent Transfer/Bed Mobility Railings Recommended Devices Ambulation Independent Ambulation Recommended Devices Rolling Walker Ambulation Distance 150 Stairs Assistance Independent Stair Recommended Devices Two Rails Number of Stairs 5 Home Exercise Program Independent Assistance Physical Therapy: Updated Goals Transfer/Bed Mobility Rolling Walker,Railings Recommended Devices Occupational Therapy: Initial Goals Goals to be Completed in (Days 10-14 ) Upper Body Bathing Routine Independent Lower Body Bathing Routine Modified Independent with Upper Body Dressing Routine Independent Lower Body Dressing Routine Modified Independent with Toilet Hygeine and Clothing Modified Independent with Management Routine Toilet Transfer Routine Modified Independent with Step-In Shower Transfer Modified Independent with Routine Functional Transfers for ADL Modified Independent with Grooming Routine Independent Feeding Routine Independent Social Work: Goals Discharge Plan return home with home care svs and family support Potential for Family Training pt's is involved and supportive Anticipated Discharge Home Destination Discharge With home care svs and family support Care Plan: Care Plan ADL's - Improve/Maintain Start: 10/03/16 11:57 Freq: DAILY Status: Active Target: Activity Type Activity Date Activity User E-Sign Co-Sign Detail Recorded Client Recorded Date Recorded By Document 10/03/16 11:57 [id number] [id number] 10/03/16 11:57 [id number] 10/03/16 11:57 PMRU Outcome: ADL's/ADL Transfers Orders/Interventions Occupational Therapy Evaluation & Treatment Patient to receive OT 5x/wk for 60-120 Therex min/day Self Care Management Group Therapy UE/LE ADL's with Assist Yes ADL Transfers with Assist Yes Toileting: Transfers,Clothing Management Yes ,Hygeine w/Assist Progression Toward Outcome/Goals Progressing Cardiovascular- Improve/Maintain Start: 10/01/16 16:31 Freq: DAILY Status: Active Target: Activity Type Activity Date Activity User E-Sign Co-Sign Detail Recorded Client Recorded Date Recorded By Document 10/03/16 14:32 [id number] [id number] 10/03/16 14:33 [id number] 10/03/16 14:32 PMRU Outcome: Cardiovascular Vital Signs q Shift for 48hrs Then BID Yes Daily Weight Ordered No Current Cardiovascular Outcome/Goal Maintain/ Achieve Baseline HR, BP , Perfusion Maintain/ Improve Perfusion Progression Toward Outcome/Goal Progressing DVT Prophylaxis- Improve/Maintain Start: 10/01/16 16:31 Freq: DAILY Status: Active Target: Activity Type Activity Date Activity User E-Sign Co-Sign Detail Recorded Client Recorded Date Recorded By Document 10/03/16 14:32 [id number] [id number] 10/03/16 14:33 [id number] 10/03/16 14:32 PMRU Outcome: DVT Prophylaxis Outcome/Goals Remains Free of DVT Complies with DVT Prophylaxis /Treatment Demonstrates Knowledge of DVT Prevention/ Treatment TEDS Stockings on Every AM, Off at HS Other Outcome/Goals apolinar wraps Progression Toward Outcome/Goals Progressing Discharge Planning - Improve/Maintain Start: 10/01/16 16:31 Freq: DAILY Status: Active Target: Activity Type Activity Date Activity User E-Sign Co-Sign Detail Recorded Client Recorded Date Recorded By Document 10/03/16 14:32 [id number] [id number] 10/03/16 14:33 [id number] 10/03/16 14:32 PMRU Outcome: Discharge Planning Update Patient Family No Outcome/Goals Demonstrates Understanding of Discharge Plan Progression Toward Outcome/Goals Progressing Education-Improve/Maintain Start: 10/01/16 16:31 Freq: DAILY Status: Active Target: Activity Type Activity Date Activity User E-Sign Co-Sign Detail Recorded Client Recorded Date Recorded By Document 10/03/16 14:32 [id number] [id number] 10/03/16 14:33 [id number] 10/03/16 14:32 PMRU Outcome: Education Outcome/Goals Demonstrates Skills Encourage Questions Progression Toward Outcome/Goals Progressing /GI-Improve/Maintain Start: 10/01/16 16:31 Freq: DAILY Status: Active Target: Activity Type Activity Date Activity User E-Sign Co-Sign Detail Recorded Client Recorded Date Recorded By Document 10/03/16 22:26 [id number] 10/03/16 22:27 [id number] 10/03/16 22:26 PMRU Outcome: Genitourinary/ Gastrointestinal Genitourinary- Outcome/Goals Remain Free of Hospital- Acquired UTI Gastrointestinal-Outcome/Goals Maintain/ Achieve Bowel Regularity in Accordance with Pt's Baseline Remain Free of Emesis Prevent Constipation Laxatives as Ordered Other Outcome/Goals patient has chronic levin, moderate amount of leakage in depends. Provider aware. Progression Toward Outcome/Goals - Progressing Progression Toward Outcome/Goals - GI Progressing Genitourinary- Outcome/Goals Met Remain Free of Hospital- Acquired UTI Gastrointestinal-Outcome/Goals Met Remain Free of Emesis Prevent Constipation Laxatives as Ordered Medication Administration Start: 10/01/16 16:31 Freq: DAILY Status: Active Target: Activity Type Activity Date Activity User E-Sign Co-Sign Detail Recorded Client Recorded Date Recorded By Document 10/03/16 14:32 [id number] 10/03/16 14:33 [id number] 10/03/16 14:32 PMRU Outcome: Medication Administration Assess Patient Knowledge/Teach Med Yes Education for all Meds Outcome/Goals Patient Independent with Medication Administration at Home Demonstrates Understanding Progression Towards Outcome/Goals Progressing Is Patient Going Home on Lovenox? No Mobility- Improve/Maintain Start: 10/03/16 13:10 Freq: DAILY Status: Active Target: Activity Type Activity Date Activity User E-Sign Co-Sign Detail Recorded Client Recorded Date Recorded By Document 10/04/16 12:09 [id number] [email or web address] 10/04/16 12:09 [id number] 10/04/16 12:09 PMRU Outcome: Mobility Physical Therapy Evaluation and Yes Treatment Activity OOB with Assistance Yes WBAT Yes Device Yes Assistance Yes Patient to be seen 5x/wk for 60-120 min/ Therex day for: Mobility Training Gait Training Outcome/Goals Maintain/ Achieve Baseline Mobility Status Improve Mobility Status Demonstrates Proper Use of Assistive Devices Free from Complications of Immobility Progression Toward Outcome/Goals Progressing Bed Mobility Yes: Modified independent Transfers Yes: Independent with R/W Gait x ft Yes: Independent with R/W 150' Up/Down Stairs Yes: Modified independent 5 with bilat railings Respiratory - Improve/Maintain Start: 10/01/16 16:31 Freq: DAILY Status: Active Target: Activity Type Activity Date Activity User E-Sign Co-Sign Detail Recorded Client Recorded Date Recorded By Document 10/03/16 14:32 [id number] 10/03/16 14:33 [id number] 10/03/16 14:32 PMRU Outcome: Respiratory Does Patient Have a Trach No Outcome/Goals Maintain/ Improve Baseline Respiratory Status Prevent Pneumonia/ Atelectasis Progression Toward Outcome/Goals Progressing Safety- Improve/Maintain Start: 10/01/16 16:31 Freq: DAILY Status: Active Target: Activity Type Activity Date Activity User E-Sign Co-Sign Detail Recorded Client Recorded Date Recorded By Document 10/03/16 14:32 [id number] 10/03/16 14:33 [id number] 10/03/16 14:32 PMRU Outcome: Safety Outcome/Goals Remain Free of Injury or Harm Cooperates with Safety Measures for Least Restrictive Environment Prevent Falls/ Injury Progression Toward Outcome/Goals Progressing Skin- Improve/Maintain Start: 10/01/16 16:31 Freq: DAILY Status: Active Target: Activity Type Activity Date Activity User E-Sign Co-Sign Detail Recorded Client Recorded Date Recorded By Document 10/03/16 22:26 [id number] 10/03/16 22:26 [id number] 10/03/16 22:26 PMRU Outcome: Skin Skin Risk Level High Skin Orders Air Mattress Turn/Position q2hr While in Bed Outcome/Goals Maintain/ Improve Skin Intergrity Free from Decubitus Progression Toward Outcome/Goals Progressing Medicine Note: Length of Stay: 11 days Anticipated Discharge Destination: Home Tentative Discharge Date: 10/16/16 Discharged to: home
[2016-10-05] MEDS: Metoprolol Tartrate TAB* 25 MG PO SCH ×3 (00:17→21:01)
[2016-10-05] MEDS: Gabapentin CAP(*) 100 MG PO SCH ×4 (00:17→21:01)
[2016-10-05] MEDS: Levothyroxine TAB* 75 MCG TAB PO SCH (05:31)
[2016-10-05] MEDS: ABIRATERONE 250 MG PO SCH (06:26)
[2016-10-05] MEDS: predniSONE TAB* 20 MG PO SCH (09:39)
[2016-10-05] MEDS: Folic Acid TAB* 1 MG PO SCH (09:40)
[2016-10-05] MEDS: Ascorbic Acid TAB* 500 MG PO SCH (09:40)
[2016-10-05] MEDS: Docusate CAP* 100 MG PO SCH ×2 (09:40→21:08)
[2016-10-05] MEDS: Famotidine TAB* 20 MG PO SCH ×3 (09:40→21:01)
[2016-10-05] MEDS: Diltiazem CD CAP* 120 MG PO SCH (09:40)
[2016-10-05] MEDS ORDERED: Ondansetron ODT TAB* 4 MG PO ONE (12:00)
[2016-10-06] MEDS: Levothyroxine TAB* 75 MCG TAB PO SCH (06:08)
[2016-10-06] MEDS: ABIRATERONE 250 MG PO SCH (06:13)
[2016-10-06 09:02] LABS: Hematocrit 42 % (42-52); Hemoglobin 13.7 g/dl (14.0-18.0); Mean Corpuscular HGB Conc 33 g/dl (31-36); Mean Corpuscular Hemoglobin 31 pg (27-31); Mean Corpuscular Volume 94 fL (80-94); Mean Platelet Volume 9 um3 (7.4-10.4); Red Blood Count 4.46 10^6/ul (4.0-5.4); Red Cell Distribution Width 17 % (10.5-15); White Blood Count 17.5 10^3/ul (3.5-10.8)
[2016-10-06] MEDS: Gabapentin CAP(*) 100 MG PO SCH ×3 (10:07→20:07)
[2016-10-06] MEDS: predniSONE TAB* 20 MG PO SCH (10:08)
[2016-10-06] MEDS: Folic Acid TAB* 1 MG PO SCH (10:09)
[2016-10-06] MEDS: Famotidine TAB* 20 MG PO SCH ×2 (10:09→20:07)
[2016-10-06] MEDS: Ascorbic Acid TAB* 500 MG PO SCH (10:09)
[2016-10-06] MEDS: Docusate CAP* 100 MG PO SCH ×2 (10:11→20:07)
[2016-10-06] MEDS: Metoprolol Tartrate TAB* 25 MG PO SCH ×2 (10:17→20:57)
[2016-10-06] MEDS: Diltiazem CD CAP* 120 MG PO SCH (10:18)
[2016-10-07] MEDS: ABIRATERONE 250 MG PO SCH (06:23)
[2016-10-07] MEDS: Levothyroxine TAB* 75 MCG TAB PO SCH (06:23)
[2016-10-07] MEDS: Gabapentin CAP(*) 100 MG PO SCH ×3 (08:34→20:09)
[2016-10-07] MEDS: Ascorbic Acid TAB* 500 MG PO SCH (08:34)
[2016-10-07] MEDS: Diltiazem CD CAP* 120 MG PO SCH (08:34)
[2016-10-07] MEDS: Folic Acid TAB* 1 MG PO SCH (08:34)
[2016-10-07] MEDS: Famotidine TAB* 20 MG PO SCH ×2 (08:34→20:10)
[2016-10-07] MEDS: Docusate CAP* 100 MG PO SCH ×2 (08:34→20:08)
[2016-10-07] MEDS: predniSONE TAB* 20 MG PO SCH (08:34)
[2016-10-07] MEDS: Metoprolol Tartrate TAB* 25 MG PO SCH ×2 (08:35→20:09)
[2016-10-08] MEDS: Levothyroxine TAB* 75 MCG TAB PO SCH (05:34)
[2016-10-08] MEDS: ABIRATERONE 250 MG PO SCH (06:42)
[2016-10-08] MEDS: Metoprolol Tartrate TAB* 25 MG PO SCH ×2 (08:19→21:16)
[2016-10-08] MEDS: Gabapentin CAP(*) 100 MG PO SCH ×3 (08:19→21:16)
[2016-10-08] MEDS: Folic Acid TAB* 1 MG PO SCH (08:20)
[2016-10-08] MEDS: Diltiazem CD CAP* 120 MG PO SCH (08:20)
[2016-10-08] MEDS: Famotidine TAB* 20 MG PO SCH ×2 (08:20→21:17)
[2016-10-08] MEDS: Docusate CAP* 100 MG PO SCH ×2 (08:20→21:07)
[2016-10-08] MEDS: predniSONE TAB* 20 MG PO SCH (08:20)
[2016-10-08] MEDS: Ascorbic Acid TAB* 500 MG PO SCH (08:20)
--- NOTE | 2016-10-08 12:45 | PMRUTEAM ---
PMRU: Goals Current Status: Nursing: Current Status Skin Deviations [Generalized] Bruise Skin Deviations [Groin] Rash Skin Deviation Description [ both arms Generalized] Skin Deviation Description [ improving Groin] Bladder Current Status levin Bowel Current Status occasionnaly incontinent Nutrition Current Status eats 25% Medication Current Status knows his pills and takes whole with water Physical Therapy: Current Status Bed Mobility Assistance Mod Assist Transfer Moblility Assistance Min Assist,Mod Assist Transfer/Bed Mobility Rolling Walker Recommended Devices Transfer Mobility Comment Pt. requires mod to max A x 1 sit to stand Ambulation Assistance Supervision,Contact Guard Assist Ambulation Assistive Devices Rolling Walker Number of Feet Patient 50 Ambulated Ambulation Comment Pt. presents a slow short step reciprocal type gait pattern. Stairs Assistance Not Tested Stairs Recommended Devices Two Rails Number of Stairs 5 Curb Not Tested Occupational Therapy: Current Status Upper Body Dressing Min Assist Lower Body Dressing Max Asst Bathing Mod Assist,Max Asst Toileting Total Assist Toilet Transfer Mod Assist Shower Transfer Min Assist Eating Independent Rec Therapy: Current Status Summary of Assessment and RT assessment complete and pt. is aware of Clinical Impression services. Pt. requested crossword puzzles and continued leisure visits - both have been and will continue to be provided while on the unit. Pt. is social and in good spirits during visits. Treatment Goals Pt. will engage in leisure activities while on the unit. Treatment Plan Provide RT services and encourage involvement. Social Work: Current Status Discharge Plan return home with home care svs and family support Potential for Family Training pt's is involved and supportive Anticipated Discharge Home Destination Discharge With Lifetime Care and family support Nutrition: Current Status Monitoring Receiving regular diet with fair intake (25-50%). Regular bowel pattern. Note mild hyperglycemia (147) impacted by steroids. Regular diet remains appropriate. Will follow to encourage adequate intake. Goals: Physical Therapy: Initial Goals Bed Mobility Assistance Independent Transfer Mobility Assistance Independent Transfer/Bed Mobility Railings Recommended Devices Ambulation Independent Ambulation Recommended Devices Rolling Walker Ambulation Distance 150 Stairs Assistance Independent Stair Recommended Devices Two Rails Number of Stairs 5 Home Exercise Program Independent Assistance Physical Therapy: Updated Goals Bed Mobility Assistance Independent Transfer Mobility Assistance Independent Transfer/Bed Mobility Rolling Walker,Railings Recommended Devices Ambulation Assistive Devices Rolling Walker Ambulation Distance (ft) 150 Stairs Assistance Independent Stairs Recommended Devices Two Rails Number of Stairs 5 Home Exercise Program Independent Assistance Occupational Therapy: Initial Goals Goals to be Completed in (Days 10-14 ) Upper Body Bathing Routine Independent Lower Body Bathing Routine Modified Independent with Upper Body Dressing Routine Independent Lower Body Dressing Routine Modified Independent with Toilet Hygeine and Clothing Modified Independent with Management Routine Toilet Transfer Routine Modified Independent with Step-In Shower Transfer Modified Independent with Routine Functional Transfers for ADL Modified Independent with Grooming Routine Independent Feeding Routine Independent Nursing: Goals Bladder Goal levin Bowel Goal continent Nutrition Goal to eat 50-100 % Medication Goal met Nutrition: Goals Intervention Goals 1. Maintain adequate glycemic control per inpatient parameters. 2. Achieve adequate oral intake to support maintenance of lean body mass. Social Work: Goals Discharge Plan return home with home care svs and family support Potential for Family Training pt's is involved and supportive Anticipated Discharge Home Destination Discharge With Lifetime Care and family support Care Plan: Care Plan ADL's - Improve/Maintain Start: 10/03/16 11:57 Freq: DAILY Status: Active Target: Activity Type Activity Date Activity User E-Sign Co-Sign Detail Recorded Client Recorded Date Recorded By Document 10/07/16 11:38 [id number] 10/07/16 11:38 [id number] 10/07/16 11:38 PMRU Outcome: ADL's/ADL Transfers Orders/Interventions Occupational Therapy Evaluation & Treatment Patient to receive OT 5x/wk for 60-120 Therex min/day Self Care Management Group Therapy UE/LE ADL's with Assist Yes ADL Transfers with Assist Yes Toileting: Transfers,Clothing Management Yes ,Hygeine w/Assist Progression Toward Outcome/Goals Not Progressing Outcome/Goals Met Pt having increased difficulty with proximal BLE weakness today and needs 2A for STS. Cardiovascular- Improve/Maintain Start: 10/01/16 16:31 Freq: DAILY Status: Active Target: Activity Type Activity Date Activity User E-Sign Co-Sign Detail Recorded Client Recorded Date Recorded By Document 10/08/16 08:00 [id number] 10/08/16 11:08 [id number] 10/08/16 08:00 PMRU Outcome: Cardiovascular Vital Signs q Shift for 48hrs Then BID Yes Daily Weight Ordered No Current Cardiovascular Outcome/Goal Maintain/ Achieve Baseline HR, BP , Perfusion Maintain/ Improve Perfusion Progression Toward Outcome/Goal Progressing Outcome/Goals Met Comment HR irregular DVT Prophylaxis- Improve/Maintain Start: 10/01/16 16:31 Freq: DAILY Status: Active Target: Activity Type Activity Date Activity User E-Sign Co-Sign Detail Recorded Client Recorded Date Recorded By Document 10/08/16 08:00 [id number] 10/08/16 11:08 [id number] 10/08/16 08:00 PMRU Outcome: DVT Prophylaxis Outcome/Goals Remains Free of DVT Complies with DVT Prophylaxis /Treatment Demonstrates Knowledge of DVT Prevention/ Treatment TEDS Stockings on Every AM, Off at HS Other Outcome/Goals apolinar wraps Progression Toward Outcome/Goals Progressing Discharge Planning - Improve/Maintain Start: 10/01/16 16:31 Freq: DAILY Status: Active Target: Activity Type Activity Date Activity User E-Sign Co-Sign Detail Recorded Client Recorded Date Recorded By Document 10/07/16 13:39 [id number] 10/07/16 13:43 [id number] 10/07/16 13:39 PMRU Outcome: Discharge Planning Update Patient Family No Outcome/Goals Demonstrates Understanding of Discharge Plan Progression Toward Outcome/Goals Progressing Education-Improve/Maintain Start: 10/01/16 16:31 Freq: DAILY Status: Active Target: Activity Type Activity Date Activity User E-Sign Co-Sign Detail Recorded Client Recorded Date Recorded By Document 10/08/16 08:00 [id number] [email or web address] 10/08/16 11:08 [id number] 10/08/16 08:00 PMRU Outcome: Education Outcome/Goals Demonstrates Skills Encourage Questions Progression Toward Outcome/Goals Progressing /GI-Improve/Maintain Start: 10/01/16 16:31 Freq: DAILY Status: Active Target: Activity Type Activity Date Activity User E-Sign Co-Sign Detail Recorded Client Recorded Date Recorded By Document 10/08/16 08:00 [id number] 10/08/16 11:08 [id number] 10/08/16 08:00 PMRU Outcome: Genitourinary/ Gastrointestinal Genitourinary- Outcome/Goals Remain Free of Hospital- Acquired UTI Gastrointestinal-Outcome/Goals Maintain/ Achieve Bowel Regularity in Accordance with Pt's Baseline Remain Free of Emesis Prevent Constipation Laxatives as Ordered Other Outcome/Goals patient has chronic levin Progression Toward Outcome/Goals - Progressing Progression Toward Outcome/Goals - GI Progressing Genitourinary- Outcome/Goals Met Maintain/ Achieve Adequate Urinary Output Remain Free of Hospital- Acquired UTI Gastrointestinal-Outcome/Goals Met Remain Free of Emesis Prevent Constipation Laxatives as Ordered Medication Administration Start: 10/01/16 16:31 Freq: DAILY Status: Active Target: Activity Type Activity Date Activity User E-Sign Co-Sign Detail Recorded Client Recorded Date Recorded By Document 10/08/16 08:00 [id number] 10/08/16 11:08 [id number] 10/08/16 08:00 PMRU Outcome: Medication Administration Assess Patient Knowledge/Teach Med Yes Education for all Meds Outcome/Goals Patient Independent with Medication Administration at Home Demonstrates Understanding Progression Towards Outcome/Goals Progressing Is Patient Going Home on Lovenox? No Mobility- Improve/Maintain Start: 10/03/16 13:10 Freq: DAILY Status: Active Target: Activity Type Activity Date Activity User E-Sign Co-Sign Detail Recorded Client Recorded Date Recorded By Document 10/07/16 12:18 [id number] [email or web address] 10/07/16 12:18 [id number] 10/07/16 12:18 PMRU Outcome: Mobility Physical Therapy Evaluation and Yes Treatment Activity OOB with Assistance Yes WBAT Yes Device Yes Assistance Yes Patient to be seen 5x/wk for 60-120 min/ Therex day for: Mobility Training Gait Training Outcome/Goals Maintain/ Achieve Baseline Mobility Status Improve Mobility Status Demonstrates Proper Use of Assistive Devices Free from Complications of Immobility Progression Toward Outcome/Goals Progressing Bed Mobility Yes: Modified independent Transfers Yes: Independent with R/W Gait x ft Yes: Independent with R/W 150' Up/Down Stairs Yes: Modified independent 5 with bilat railings Respiratory - Improve/Maintain Start: 10/01/16 16:31 Freq: DAILY Status: Active Target: Activity Type Activity Date Activity User E-Sign Co-Sign Detail Recorded Client Recorded Date Recorded By Document 10/08/16 08:00 [id number] 10/08/16 11:08 [id number] 10/08/16 08:00 PMRU Outcome: Respiratory Does Patient Have a Trach No Outcome/Goals Maintain/ Improve Baseline Respiratory Status Prevent Pneumonia/ Atelectasis Other Outcome/Goals Demonstrates effective use of incentive spirometer. Encouraged to use more frequently Progression Toward Outcome/Goals Progressing Safety- Improve/Maintain Start: 10/01/16 16:31 Freq: DAILY Status: Active Target: Activity Type Activity Date Activity User E-Sign Co-Sign Detail Recorded Client Recorded Date Recorded By Document 10/08/16 08:00 [id number] [email or web address] 10/08/16 11:08 [id number] 10/08/16 08:00 PMRU Outcome: Safety Outcome/Goals Remain Free of Injury or Harm Cooperates with Safety Measures for Least Restrictive Environment Prevent Falls/ Injury Other Outcome/Goals patient transfers slowly and steadily between recliner and bed. Progression Toward Outcome/Goals Progressing Skin- Improve/Maintain Start: 10/01/16 16:31 Freq: DAILY Status: Active Target: Activity Type Activity Date Activity User E-Sign Co-Sign Detail Recorded Client Recorded Date Recorded By Document 10/08/16 08:00 [id number] [email or web address] 10/08/16 11:08 [id number] 10/08/16 08:00 PMRU Outcome: Skin Skin Risk Level High Skin Orders Air Mattress Turn/Position q2hr While in Bed Outcome/Goals Maintain/ Improve Skin Intergrity Free from Decubitus Progression Toward Outcome/Goals Progressing Medicine Note: Length of Stay: 8 days Anticipated Discharge Destination: Home Tentative Discharge Date: 10/16/16 Discharged to: Home
[2016-10-09] MEDS: Levothyroxine TAB* 75 MCG TAB PO SCH (05:37)
[2016-10-09] MEDS: ABIRATERONE 250 MG PO SCH (06:30)
[2016-10-09] MEDS ORDERED: Lidocaine 2% JELLY* 6 ML JELLY TOPICAL ONE (08:00)
[2016-10-09] MEDS: Ascorbic Acid TAB* 500 MG PO SCH (09:02)
[2016-10-09] MEDS: predniSONE TAB* 20 MG PO SCH (09:02)
[2016-10-09] MEDS: Folic Acid TAB* 1 MG PO SCH (09:02)
[2016-10-09] MEDS: Gabapentin CAP(*) 100 MG PO SCH ×3 (09:02→20:58)
[2016-10-09] MEDS: Famotidine TAB* 20 MG PO SCH ×2 (09:02→20:55)
[2016-10-09] MEDS: Metoprolol Tartrate TAB* 25 MG PO SCH ×2 (09:02→20:56)
[2016-10-09] MEDS: Diltiazem CD CAP* 120 MG PO SCH (09:02)
[2016-10-09] MEDS: Docusate CAP* 100 MG PO SCH ×2 (09:08→21:04)
[2016-10-09 10:58] LABS: Hematocrit 39 % (42-52); Hemoglobin 12.7 g/dl (14.0-18.0); Mean Corpuscular HGB Conc 33 g/dl (31-36); Mean Corpuscular Hemoglobin 31 pg (27-31); Mean Corpuscular Volume 95 fL (80-94); Mean Platelet Volume 8 um3 (7.4-10.4); Red Blood Count 4.15 10^6/ul (4.0-5.4); Red Cell Distribution Width 17 % (10.5-15); White Blood Count 12.2 10^3/ul (3.5-10.8)
[2016-10-09 11:00] LABS: Add Diff/Slide Review? Slide Review Added; Comments Flag Yes
[2016-10-09 11:08] LABS: Albumin 2.5 g/dL (3.2-5.2); BUN/Creatinine Ratio 24.1 (8-20); C Reactive Protein 20.11 mg/L (< 5.00); Calcium 7.6 mg/dL (8.6-10.3); EGFR African American 113.8 (>60); EGFR Non-African American 88.5 (>60); Globulin 2.9 g/dL (2-4); Potassium 4.3 mmol/L (3.5-5.0); Total Bilirubin 0.9 mg/dL (0.2-1.0); Total Protein 5.4 g/dL (6.4-8.9)
[2016-10-10] MEDS: Levothyroxine TAB* 75 MCG TAB PO SCH (05:06)
[2016-10-10] MEDS: ABIRATERONE 250 MG PO SCH (06:24)
[2016-10-10] MEDS: Gabapentin CAP(*) 100 MG PO SCH ×3 (08:56→20:58)
[2016-10-10] MEDS: Famotidine TAB* 20 MG PO SCH ×2 (08:56→20:57)
[2016-10-10] MEDS: Metoprolol Tartrate TAB* 25 MG PO SCH ×2 (08:56→20:55)
[2016-10-10] MEDS: predniSONE TAB* 20 MG PO SCH (08:56)
[2016-10-10] MEDS: Ascorbic Acid TAB* 500 MG PO SCH (08:56)
[2016-10-10] MEDS: Diltiazem CD CAP* 120 MG PO SCH (08:57)
[2016-10-10] MEDS: Folic Acid TAB* 1 MG PO SCH (08:57)
[2016-10-10] MEDS: Docusate CAP* 100 MG PO SCH ×2 (08:57→20:59)
[2016-10-11] MEDS: Levothyroxine TAB* 75 MCG TAB PO SCH (05:41)
[2016-10-11 05:43] VITALS: BP 121/74
[2016-10-11 06:20] LABS: BUN/Creatinine Ratio 28.9 (8-20); Calcium 7.9 mg/dL (8.6-10.3); Potassium 4.8 mmol/L (3.5-5.0)
[2016-10-11] MEDS: ABIRATERONE 250 MG PO SCH (06:32)
[2016-10-11] MEDS: predniSONE TAB* 20 MG PO SCH (08:32)
[2016-10-11] MEDS: Gabapentin CAP(*) 100 MG PO SCH (08:32)
[2016-10-11] MEDS: Metoprolol Tartrate TAB* 25 MG PO SCH (08:32)
[2016-10-11] MEDS: Diltiazem CD CAP* 120 MG PO SCH (08:33)
[2016-10-11] MEDS: Famotidine TAB* 20 MG PO SCH (08:33)
[2016-10-11] MEDS: Folic Acid TAB* 1 MG PO SCH (08:33)
[2016-10-11] MEDS: Methotrexate TAB* 2.5 MG PO SCH (08:33)
[2016-10-11] MEDS: Ascorbic Acid TAB* 500 MG PO SCH (08:33)
[2016-10-11] MEDS: Docusate CAP* 100 MG PO SCH (08:33)
--- NOTE | 2016-10-11 16:00 | DS ---
CC: Dr. Parrish; Dr. Laguna REHABILITATION DISCHARGE SUMMARY: DATE OF ADMISSION: 10/01/16 DATE OF DISCHARGE: 10/11/16 PRIMARY CARE PROVIDER: Dr. Laguna. UROLOGIST: Dr. Parrish. 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 HISTORY OF PRESENT ILLNESS: For full details of his acute hospitalization leading up to this admission, please see the note dictated by Dr. Howard on . REHABILITATION HOSPITAL COURSE: During his time on the [facility], initially he seemed to be mobilizing well. He continued on 60 mg of prednisone. On 10/04/16 , methotrexate was initiated in hopes that eventually prednisone could be tapered. His CRP initially seemed to be decreasing. Unfortunately, in his second week of rehabilitation, he was not performing as well and seemed to have more weakness. His CRP was slightly increased. His CK was normal. 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 He has continued taking Zytiga for his metastatic prostate cancer. Unfortunately, on 10/08/16, he developed blood clots in his chronic indwelling Cole catheter. It stopped draining urine, and he was seen by Dr. Zhou on 10/09/16 and had his catheter changed. Unfortunately, he has continued having blood in his urine and around the catheter. He was put on bedrest for 2 days, and on the 3rd day, when he was allowed to start to mobilize, transferred from the bed to the chair and had increased bleeding. In followup with Urology, it was felt that he should stay on bedrest with the hopes that the current Cole catheter would not get clotted off and remain patent until his primary urologist returns on the . The case was discussed with his primary care provider Dr. Laguna as well as hospitalist service who agreed to admit him to the medical floor for further evaluation and monitoring. CURRENT MEDICATIONS: 1. Zytiga 1000 mg q.a.m. which is brought in by his . 2. Acetaminophen 650 mg q.6 hours p.r.n. 3. Vitamin C 500 mg daily. 4. Dulcolax 10 mg daily p.r.n. 5. Diltiazem CD 120 mg daily. 6. Docusate 100 mg b.i.d. 7. Famotidine 20 mg b.i.d. 8. Folic acid 1 mg daily. 9. Gabapentin 200 mg t.i.d. 10. Levothyroxine 75 mcg daily. 11. Milk of magnesia 30 mL q.6 hours p.r.n. 12. Methotrexate 10 mg q.7 days. 13. Metoprolol 75 mg b.i.d. 14. Senna 2 tablets q.h.s. 15. Prednisone 60 mg daily. Of note, due to his history of bleeding, he has not been on any form of DVT prophylaxis during his stay as it has been contraindicated. ALLERGIES: PENICILLIN. DISCHARGE DIAGNOSES: 1. Paraneoplastic syndrome. 2. Metastatic prostate cancer. 3. Hematuria with chronic indwelling Cole catheter. 4. History of necrotizing fasciitis. 5. History of hypothyroidism. 6. Paroxysmal atrial fibrillation, off of anticoagulation due to a history of bleeding. DISCHARGE CONDITION: Guarded. DISCHARGE DISPOSITION: To the hospitalist service at [facility]. FUNCTIONAL STATUS: At the time of this summary, his last therapy notes indicated that he was transferring with maximum assist for sit to stand, using a rolling walker, and fatigued easily. With occupational therapy, he required total assist for lower body dressing, maximum assist for bathing, total assist for toileting, and moderate assist for a toilet transfer. [id number]/[facility] #: [id number] JONAH
== END 2016-10-11 11:15 | disposition short-term general hospital (02) | DRG 544 ==
LOC: PMRU 10:35
PROVIDERS: ADMIT Physical Medicine & Rehabilitation; ATTEND Physical Medicine & Rehabilitation
PROC: F07Z5ZZ Bed Mobility Treatment (ICD-10-PCS; principal; 2016-10-01)
PROC: F07Z8ZZ Transfer Training Treatment (ICD-10-PCS; 2016-10-01)
PROC: F07Z9ZZ Gait Training/Functional Ambulation Treatment (ICD-10-PCS; 2016-10-01)
PROC: F08Z1ZZ Dressing Techniques Treatment (ICD-10-PCS; 2016-10-01)
PROC: F08Z0ZZ Bathing/Showering Techniques Treatment (ICD-10-PCS; 2016-10-01)
PROC: F08Z3ZZ Feeding/Eating Treatment (ICD-10-PCS; 2016-10-01)
DX: C79.51 Secondary malignant neoplasm of bone (principal); G13.1 Other systemic atrophy primarily affecting central nervous system in neoplastic disease; C61 Malignant neoplasm of prostate; I48.91 Unspecified atrial fibrillation; R31.9 Hematuria, unspecified; M35.3 Polymyalgia rheumatica; E03.9 Hypothyroidism, unspecified; R53.1 Weakness; M51.36 Other intervertebral disc degeneration, lumbar region; Z79.52 Long term (current) use of systemic steroids; Z79.899 Other long term (current) drug therapy; Z88.0 Allergy status to penicillin
CPT/HCPCS: 36415; 80048; 80053; 82550; 85025; 86140; A9270-GY; J7512; J8610

== ENCOUNTER 2016-10-11 12:27 | Inpatient (IN) | payer MEDICARE, BC ==
[2016-10-11] MEDS ORDERED: Acetaminophen TAB* 325 MG PO PRN (13:18)
[2016-10-11] MEDS ORDERED: Ondansetron INJ* 2 MG/ML VIAL IV PRN (13:18)
[2016-10-11] MEDS ORDERED: Bisacodyl SUPP* 10 MG SUPP PR PRN (13:32)
[2016-10-11] MEDS ORDERED: Magnesium Hydroxide LIQ* 30 ML UDC PO PRN (13:32)
[2016-10-11] MEDS ORDERED: Senna TAB PO PRN (13:32)
[2016-10-11] MEDS: Gabapentin CAP(*) 100 MG PO SCH ×2 (13:52→22:06)
[2016-10-11 15:08] LABS: Hematocrit 42 % (42-52); Hemoglobin 13.5 g/dl (14.0-18.0); Mean Corpuscular HGB Conc 32 g/dl (31-36); Mean Corpuscular Hemoglobin 31 pg (27-31); Mean Corpuscular Volume 95 fL (80-94); Mean Platelet Volume 8 um3 (7.4-10.4); Red Cell Distribution Width 17 % (10.5-15); White Blood Count 17.1 10^3/ul (3.5-10.8)
[2016-10-11 15:10] LABS: Add Diff/Slide Review? Slide Review Added; Comments Flag Yes
[2016-10-11 15:55] LABS: BUN/Creatinine Ratio 34.6 (8-20); EGFR African American 122.2 (>60); EGFR Non-African American 95.1 (>60); Potassium 4.8 mmol/L (3.5-5.0)
--- NOTE | 2016-10-11 16:33 | RAD ---
Indication: Elevated white blood cell count. Hematuria. No chest complaints. Prostate carcinoma. Comparison: September 25, 2016 chest radiograph and May 20, 2016 CT. Technique: Upright AP 1608 hours Report: Clear lungs. Small LEFT greater than RIGHT dependent pleural effusions. Upper normal heart size. Unremarkable central pulmonary vasculature. 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 IMPRESSION: 1. Small dependent pleural effusions. No compelling evidence for pneumonia. 2. Osteoblastic rib and vertebral body metastasis similar to the May 20, 2016 CT.
[2016-10-11 17:12] LABS: Urine Bacteria 2+ (Absent); Urine Bilirubin Negative (Negative); Urine Glucose 3+(>=500 mg/dL) (Negative); Urine Nitrite Negative (Negative)
--- NOTE | 2016-10-11 19:08 | HP ---
HISTORY AND PHYSICAL: DATE OF ADMISSION: 10/11/16 PRIMARY CARE PROVIDER: Dr. Laguna. ATTENDING PHYSICIAN WHILE IN THE HOSPITAL: Gini Valencia MD (report dictated by Houston Calix NP). CHIEF COMPLAINT: Hematuria. HISTORY OF PRESENT ILLNESS: Mr. Rodriguez is an 85-year-old male patient with multiple medical problems who came into the hospital originally on 09/25/16 with weakness, was discharged on the . The weakness was thought secondary to be to PMR and spinal stenosis, possibly paraneoplastic syndrome. He was discharged to [facility] on the . He has been there for for about 10 days. However, over the last 2 to 3 days it has been noticed that he has been having intermittent hematuria that has now become more pronounced. The patient has a significant history of metastatic prostate cancer. 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 The patient apparently was down in [facility], the [facility] was consulted. It was felt that the patient most likely would need a cystoscopy, they were irrigating the bladder p.r.n. However, the patient required inpatient admission to work up the hematuria, so the hospitalist service was asked to evaluate the patient. The patient was evaluated on , he states he is feeling well. He denies any abdominal discomfort, denies having any back pain. He denies having any chest pain or shortness of breath. He states he does not feel lightheaded or dizzy. He states that he is feeling well. He stated that he walked 50 feet with PT down in [facility]. There was concern again because of the hematuria and we were asked to evaluate in consult. There has been no documented fevers or chills. PAST MEDICAL HISTORY: Significant for: 1. Metastatic prostate cancer. 2. Atrial fibrillation. 3. Melanoma. 4. Hypothyroidism. 5. PMR. 6. CKD stage 2. 7. Necrotizing fasciitis. 8. Urethroperineal fistula. 9. Neuropathy. 10. Spinal stenosis. PAST SURGICAL HISTORY: He has had: 1. Right thigh fasciotomy. 2. Appendectomy. 3. Urethral dilatations. 4. Melanoma excisions. 5. Tonsillectomy. HOME MEDICATIONS: Include: 1. Diltiazem 120 mg daily. 2. Suppository 10 mg p.r. daily as needed. 3. Vitamin C 500 mg p.o. daily. 4. Tylenol 650 mg p.o. every 6 hours as needed. 5. Zytiga 1000 mg p.o. daily. 6. Synthroid 75 mcg daily. 7. Gabapentin 200 mg p.o. t.i.d. 8. Folic acid 1 mg p.o. daily. 9. Famotidine 20 mg p.o. b.i.d. 10. Colace 100 mg p.o. b.i.d. 11. Multivitamin 1 tablet daily. 12. Metoprolol 75 mg p.o. b.i.d. 13. Methotrexate 10 mg p.o. every 7 days on Fridays. 14. Milk of magnesia 30 cc p.r.n. every 6 hours as needed. 15. Prednisone 60 mg daily. 16. Senna 2 tablets at bedtime as needed. ALLERGIES TO MEDICATIONS: Include PENICILLINS. FAMILY HISTORY: Both his parents had cancer. SOCIAL HISTORY: He does not smoke. He rarely drinks alcohol. Surrogate decision maker is his . REVIEW OF SYSTEMS: Again, there is no documented fever. He denied having any significant weight change. There was no double vision. There is no ear discharge. Denies having any rhinorrhea. No sore throat, no thyroid enlargement. Denies having any chest pain. No orthopnea, nocturnal dyspnea. There was no abdominal pain. No nausea, no vomiting, no dysuria, no frequency, no loss of consciousness, pruritus, or skin ulcerations. Review of 14 systems were completed, all others negative. PHYSICAL EXAMINATION GENERAL: At this time, Mr. Rodriguez is an 85-year-old male patient. He is sitting in the hospital bed. He does not appear to be in any acute distress. VITAL SIGNS: Blood pressure 113/54, pulse of 93, respirations 18, O2 saturation 99%, temperature of 97.7. HEENT: Head atraumatic, normocephalic. Eyes: EOMs are intact. Sclerae anicteric, not pale. Throat: Oral mucosa appears to be moist. No oropharyngeal erythema. NECK: Supple. LUNGS: Clear to auscultation. No wheezes, rales, or rhonchi. HEART: Sounds S1, S2. Regular rate and rhythm. No murmurs, rubs, or gallops. ABDOMEN: Soft, flat, nontender. No CVA tenderness. He does have a Cole that does have red, obvious hematuria noted. EXTREMITIES: Pulses are 2+ throughout. He does have weakness in the lower extremities. NEUROLOGIC: He is awake, he is alert, he is oriented x3, no gross focal deficits. SKIN: Intact. LABORATORY DATA: Labs are pending for today, but most recent labs revealed WBC 12.2, RBC of 4.15, hemoglobin 12.7, hematocrit 39, platelet count 218. Last INR 1.17, PTT 29. Sodium is 129, potassium is 4.8, chloride of 90, bicarb 25, BUN 23, creatinine 0.76, glucose 160. Urine showed 2+ blood, 2+ wbc's, 3+ rbc's, absent urine bacteria. Old medical records were reviewed. ASSESSMENT AND PLAN: Mr. Rodriguez is an 85-year-old male patient coming to the hospitalist service today for evaluation of hematuria. He will be admitted on inpatient status for: 1. Hematuria. Etiology at this point certainly is unclear. Certainly, it could be related to his recent prostate cancer possible and that could be causing the bleeding. I think at this point, we will avoid any anticoagulation. We did touch base with Dr. Zhou. A call has been placed to him. I would like to ask him if we should be irrigating this every 4 hours or possibly CBI, but I am not going to initiate this until I hear from Urology and the plan will be for cystoscopy probably on Friday. 2. Metastatic prostate cancer. He can follow with his oncologist. 3. Atrial fibrillation. We will continue his medications as prescribed. 4. Hypothyroidism. Continue Synthroid. 5. History of polymyalgia rheumatica. Continue the steroids. 6. Chronic kidney disease stage 2. Again, his kidney function appears to be stable at this point. We will follow. 7. Necrotizing fascitis, not an active issue. 8. Neuropathy. Again, continue with current medical regimen. 9. Weakness. I will reinstate PT when able, but right now the patient has only been getting out of the chair. As Urology does not want us to lose the Cole catheter as he is very difficult to place the catheter, so they would like us to hold on any further PT eval at this point, so we will do PT when able , so for now, I am just going to give him out of bed to chair activity. 10. DVT prophylaxis. I have ordered SCD's. Because of the hematuria, I do not want to order heparin. 11. Fluids, electrolytes, and nutrition. He can have a regular diet. 12. Code status: He is a DNR on file. TIME SPENT: Time spent on the admission, 60 minutes; greater than half the time was spent [id number] with the patient obtaining my history and physical, other half the time spent going over the plan of care with the patient and implementing plan of care. I did discuss the plan of care with my attending, Dr. Valencia, she is in agreement. HOUSTON CALIX NP CC: Dr. Laguna; Dr. Parrish * [id number]/[facility] #: [id number] MTDD
[2016-10-11] MEDS: Metoprolol Tartrate TAB* 25 MG PO SCH (21:36)
[2016-10-11] MEDS: cefTRIAXone VIAL(*) 1,000 MG in NS 0.9% 50 ML* 50 ML IVPB SCH (22:06)
[2016-10-11] MEDS: Docusate CAP* 100 MG PO SCH (22:07)
[2016-10-11] MEDS: Famotidine TAB* 20 MG PO SCH (22:07)
[2016-10-12] MEDS: Levothyroxine TAB* 75 MCG TAB PO SCH (06:06)
[2016-10-12 06:43] LABS: Hematocrit 38 % (42-52); Hemoglobin 12.5 g/dl (14.0-18.0); Mean Corpuscular HGB Conc 33 g/dl (31-36); Mean Corpuscular Hemoglobin 31 pg (27-31); Mean Corpuscular Volume 94 fL (80-94); Mean Platelet Volume 8 um3 (7.4-10.4); Red Cell Distribution Width 17 % (10.5-15); White Blood Count 17.1 10^3/ul (3.5-10.8)
[2016-10-12 06:58] LABS: BUN/Creatinine Ratio 39.2 (8-20); Calcium 7.7 mg/dL (8.6-10.3); EGFR African American 129.9 (>60); Potassium 4.8 mmol/L (3.5-5.0)
[2016-10-12 07:01] LABS: Add Diff/Slide Review? Slide Review Added; Comments Flag Yes
[2016-10-12] MEDS: predniSONE TAB* 20 MG PO SCH (09:16)
[2016-10-12] MEDS: ABIRATERONE 250 MG PO SCH (09:17)
[2016-10-12] MEDS: Famotidine TAB* 20 MG PO SCH ×2 (09:17→19:57)
[2016-10-12] MEDS: Docusate CAP* 100 MG PO SCH ×2 (09:17→19:57)
[2016-10-12] MEDS: Ascorbic Acid TAB* 500 MG PO SCH (09:17)
[2016-10-12] MEDS: Folic Acid TAB* 1 MG PO SCH (09:17)
[2016-10-12] MEDS: Gabapentin CAP(*) 100 MG PO SCH ×3 (09:17→19:57)
[2016-10-12] MEDS: Diltiazem CD CAP* 120 MG PO SCH (09:17)
[2016-10-12] MEDS: Metoprolol Tartrate TAB* 25 MG PO SCH ×2 (10:18→19:56)
--- NOTE | 2016-10-12 15:22 | PN ---
Subjective Date of Service: 10/12/16 Interval History: Patient well known to me from previous admission prior to PMRU. Evaluated this afternoon. He states that is feeling fairly well at the moment. Denies any pain. [place] that he was making some progress in PMRU, walked about 50 ' at the most, although his feels that his progress reached a plateau fairly quickly. Still with bloody urine in draining from the levin. Family History: Unchanged from Admission Social History: Unchanged from Admission Past Medical History: Unchanged from Admission Objective Active Medications: Abiraterone Acetate (Zytiga (Nf)) 1,000 mg PO DAILY [facility] Acetaminophen (Tylenol Tab*) 650 mg PO Q4H PRN Ascorbic Acid (Vitamin C Tab*) 500 mg PO DAILY BAL Bisacodyl (Dulcolax Supp*) 10 mg [place] DAILY PRN Diltiazem HCl (Cardizem Cd Cap*) 120 mg PO DAILY [facility] Docusate Sodium (Colace Cap*) 100 mg PO BID BAL Famotidine (Pepcid Tab*) 20 mg PO BID BAL Folic Acid (Folvite Tab*) 1 mg PO DAILY BAL Gabapentin (Neurontin Cap(*)) 200 mg PO TID BAL Ceftriaxone Sodium 1,000 mg/ (Sodium Chloride) 50 mls @ 200 mls/hr IVPB Q24H [facility] Levothyroxine Sodium (Synthroid Tab*) 75 mcg PO DAILY@0600 [facility] Magnesium Hydroxide (Milk Of Magnesia Liq*) 30 ml PO Q6H PRN Methotrexate (Methotrexate Tab*) 10 mg PO Q7D@0900 [facility] Metoprolol Tartrate (Lopressor Tab*) 75 mg PO BID BAL Ondansetron HCl (Zofran Inj*) 4 mg IV Q6H PRN Prednisone (Deltasone Tab*) 60 mg PO DAILY WITH MEAL BAL Senna (Senokot Tab*) 2 tab PO BEDTIME PRN Vital Signs 10/11/16 10/11/16 10/11/16 15:52 16:12 22:06 Temperature 97.3 F Pulse Rate 67 Respiratory 18 18 Rate Blood Pressure 96/58 (mmHg) O2 Sat by Pulse 98 Oximetry 10/11/16 10/12/16 10/12/16 23:48 00:06 00:28 Temperature 97.8 F Pulse Rate 53 Respiratory 16 16 16 Rate Blood Pressure 121/58 (mmHg) O2 Sat by Pulse 97 Oximetry 10/12/16 10/12/16 10/12/16 04:12 07:46 09:17 Temperature 97.2 F Pulse Rate 94 113 Respiratory 16 16 16 Rate Blood Pressure 119/55 103/59 (mmHg) O2 Sat by Pulse 98 98 Oximetry Oxygen Devices in Use Now: None Appearance: Elderly, M, laying in bed in NAD Eyes: No Scleral Icterus Ears/Nose/Mouth/Throat: Mucous Membranes Moist Neck: NL Appearance and Movements; NL JVP Respiratory: Symmetrical Chest Expansion and Respiratory Effort, Clear to Auscultation Cardiovascular: NL Sounds; No Murmurs; No JVD, RRR Abdominal: NL Sounds; No Tenderness; No Distention Lymphatic: No Cervical Adenopathy Extremities: - - Mild LE edema, SCDs in place Skin: No Rash or Ulcers Neurological: Alert and Oriented x 3 Lines/Tubes/Other Access: Clean, Dry and Intact Levin - red urine draining Result Diagrams: 10/12/16 06:22 10/12/16 06:22 Microbiology and Other Data: Microbiology 10/11/16 16:45 Urine Culture - Preliminary Urine Serratia Marcescens Assess/Plan/Problems-Billing Assessment: Hematuria in an 85 yo M with hx of metastatic prostate cancer, AFib, hypothyroidism, CKD, necrotizing fasciitis, urethroperineal fistula s/p chronic levin, spinal stenosis and recent admission for progressive weakness 2/2 spinal stenosis vs PMR vs paraneoplastic syndrome - Patient Problems (1) Hematuria Current Visit: No Comment: Appreciate Urology assistance. Monitor for now, no irrigation. Plan for cystoscopy on 10/[address] Parrish returns. UCx growing serratia, this may be contaminant but for now will continue CTX. OOB to chair only. (2) Weakness Current Visit: No Comment: ?paraneoplastic, PMR, spinal stenosis. Continue Prednisone at 60 mg daily for now. Continue MTX. Holding on PT. (3) Afib Current Visit: No Comment: Continue Metoprolol and Diltiazem. No AC. Has been difficult to control in the past, OK with non-persistent episodes of tachycardia. (4) Metastatic malignant neoplasm to prostate Current Visit: No Comment: Cystoscopoy on 10/14. Continue Zytiga (5) DVT prophylaxis Current Visit: No Comment: SCDs Status and Disposition: Inpatient for hematuria
[2016-10-12] MEDS: cefTRIAXone VIAL(*) 1,000 MG in NS 0.9% 50 ML* 50 ML IVPB SCH (22:04)
[2016-10-13] MEDS: Levothyroxine TAB* 75 MCG TAB PO SCH (06:03)
[2016-10-13 07:49] LABS: Hematocrit 38 % (42-52); Hemoglobin 12.4 g/dl (14.0-18.0); Mean Corpuscular HGB Conc 33 g/dl (31-36); Mean Corpuscular Hemoglobin 31 pg (27-31); Mean Corpuscular Volume 94 fL (80-94); Mean Platelet Volume 9 um3 (7.4-10.4); Red Blood Count 3.98 10^6/ul (4.0-5.4); Red Cell Distribution Width 17 % (10.5-15); White Blood Count 13.2 10^3/ul (3.5-10.8)
[2016-10-13 08:02] LABS: BUN/Creatinine Ratio 45.5 (8-20); Calcium 7.8 mg/dL (8.6-10.3); EGFR African American 124.1 (>60); EGFR Non-African American 96.5 (>60); Potassium 4.9 mmol/L (3.5-5.0)
[2016-10-13] MEDS: ABIRATERONE 250 MG PO SCH (08:02)
[2016-10-13] MEDS: Gabapentin CAP(*) 100 MG PO SCH ×3 (09:48→19:55)
[2016-10-13] MEDS: Metoprolol Tartrate TAB* 25 MG PO SCH ×2 (09:48→19:56)
[2016-10-13] MEDS: predniSONE TAB* 20 MG PO SCH (09:48)
[2016-10-13] MEDS: Famotidine TAB* 20 MG PO SCH ×2 (09:49→19:56)
[2016-10-13] MEDS: Folic Acid TAB* 1 MG PO SCH (09:49)
[2016-10-13] MEDS: Docusate CAP* 100 MG PO SCH ×2 (09:49→19:56)
[2016-10-13] MEDS: Ascorbic Acid TAB* 500 MG PO SCH (09:49)
[2016-10-13] MEDS: Diltiazem CD CAP* 120 MG PO SCH (09:49)
[2016-10-13] MEDS ORDERED: Piperac/Tazob 3.375 gm in NS* 3.375 GM/100 ML BAG IVPB ONE (10:00)
[2016-10-13] MEDS ORDERED: Piperac/Tazob 3.375 gm in NS* 3.375 GM/100 ML BAG IVPB SCH (14:30)
--- NOTE | 2016-10-13 15:00 | PN ---
Subjective Date of Service: 10/13/16 Interval History: Patient seen this afternoon. He has no complaints. Denies fever or chills. Still with hematuria. Says he has been trying to stay hydrated. Family History: Unchanged from Admission Social History: Unchanged from Admission Past Medical History: Unchanged from Admission Objective Active Medications: Abiraterone Acetate (Zytiga (Nf)) 1,000 mg PO DAILY [facility] Last Admin: 10/13/16 08:02 Dose: 1,000 mg Acetaminophen (Tylenol Tab*) 650 mg PO Q4H PRN PRN Reason: FEVER/PAIN Ascorbic Acid (Vitamin C Tab*) 500 mg PO DAILY [facility] Last Admin: 10/13/16 09:49 Dose: 500 mg Bisacodyl (Dulcolax Supp*) 10 mg [place] DAILY PRN PRN Reason: CONSTIPATION Diltiazem HCl (Cardizem Cd Cap*) 120 mg PO DAILY [facility] Last Admin: 10/13/16 09:49 Dose: 120 mg Docusate Sodium (Colace Cap*) 100 mg PO BID [facility] Last Admin: 10/13/16 09:49 Dose: Not Given Famotidine (Pepcid Tab*) 20 mg PO BID [facility] Last Admin: 10/13/16 09:49 Dose: 20 mg Folic Acid (Folvite Tab*) 1 mg PO DAILY [facility] Last Admin: 10/13/16 09:49 Dose: 1 mg Gabapentin (Neurontin Cap(*)) 200 mg PO TID [facility] Last Admin: 10/13/16 09:48 Dose: 200 mg Cefepime HCl 1 gm/ Sodium (Chloride) 50 mls @ 100 mls/hr IVPB Q12H [facility] Levothyroxine Sodium (Synthroid Tab*) 75 mcg PO DAILY@0600 [facility] Last Admin: 10/13/16 06:03 Dose: 75 mcg Magnesium Hydroxide (Milk Of Magnesia Liq*) 30 ml PO Q6H PRN PRN Reason: CONSTIPATION Methotrexate (Methotrexate Tab*) 10 mg PO Q7D@0900 [facility] Metoprolol Tartrate (Lopressor Tab*) 75 mg PO BID [facility] Last Admin: 10/13/16 09:48 Dose: 75 mg Ondansetron HCl (Zofran Inj*) 4 mg IV Q6H PRN PRN Reason: NAUSEA Prednisone (Deltasone Tab*) 60 mg PO DAILY WITH MEAL [facility] Last Admin: 10/13/16 09:48 Dose: 60 mg Senna (Senokot Tab*) 2 tab PO BEDTIME PRN PRN Reason: CONSTIPATION Vital Signs 10/12/16 10/12/16 10/12/16 15:59 16:00 19:57 Temperature 98.2 F Pulse Rate 93 Respiratory 18 16 16 Rate Blood Pressure 101/60 (mmHg) O2 Sat by Pulse 96 Oximetry 10/12/16 10/12/16 10/12/16 20:00 21:57 23:41 Temperature 97.5 F Pulse Rate 34 Respiratory 16 18 16 Rate Blood Pressure 124/60 (mmHg) O2 Sat by Pulse 98 Oximetry 10/13/16 10/13/16 10/13/16 00:00 02:13 07:32 Temperature 98.3 F Pulse Rate 56 69 Respiratory 16 Rate Blood Pressure 89/51 (mmHg) O2 Sat by Pulse 96 94 95 Oximetry 10/13/16 10/13/16 10/13/16 08:00 08:14 09:44 Temperature Pulse Rate 103 Respiratory 16 Rate Blood Pressure 100/61 (mmHg) O2 Sat by Pulse 95 Oximetry Oxygen Devices in Use Now: None Appearance: Elderly, M, laying in bed in NAD Eyes: No Scleral Icterus Ears/Nose/Mouth/Throat: Mucous Membranes Moist Neck: NL Appearance and Movements; NL JVP Respiratory: Symmetrical Chest Expansion and Respiratory Effort, Clear to Auscultation Cardiovascular: NL Sounds; No Murmurs; No JVD, RRR Abdominal: NL Sounds; No Tenderness; No Distention Lymphatic: No Cervical Adenopathy Extremities: - - B/L LE edema Skin: No Rash or Ulcers Neurological: Alert and Oriented x 3 Lines/Tubes/Other Access: Clean, Dry and Intact Levin - bloody urine Result Diagrams: 10/13/16 07:34 10/13/16 07:34 Microbiology and Other Data: Microbiology 10/11/16 16:45 Urine Culture - Preliminary Urine Serratia Marcescens Assess/Plan/Problems-Billing Assessment: Hematuria in an 85 yo M with hx of metastatic prostate cancer, AFib, hypothyroidism, CKD, necrotizing fasciitis, urethroperineal fistula s/p chronic levin, spinal stenosis and recent admission for progressive weakness 2/2 spinal stenosis vs PMR vs paraneoplastic syndrome - Patient Problems (1) Bacteremia Current Visit: Yes Comment: BCx growing pseudomonas. UCx growing serratia (? contaminant). Will broaden from CTX to Cefepime to cover +ve BCx. Unclear if/ how this BCx is related to hematuria. (2) Hematuria Current Visit: No Comment: Appreciate Urology assistance. Monitor for now, no irrigation. Plan for cystoscopy on 10/[address] Parrish returns. OOB to chair only. (3) Weakness Current Visit: No Comment: ?paraneoplastic, PMR, spinal stenosis. Continue Prednisone at 60 mg daily for now. Continue MTX. Holding on PT. (4) Afib Current Visit: No Comment: Continue Metoprolol and Diltiazem. No AC. Has been difficult to control in the past, OK with non-persistent episodes of tachycardia. (5) Metastatic malignant neoplasm to prostate Current Visit: No Comment: Cystoscopoy on 10/14. Continue Zytiga (6) DVT prophylaxis Current Visit: No Comment: SCDs Status and Disposition: Inpatient for hematuria, bacteremia
[2016-10-13] MEDS: Cefepime(*) 1 GM in NS 0.9% 50 ML* 50 ML IVPB SCH (15:27)
[2016-10-14] MEDS: Cefepime(*) 1 GM in NS 0.9% 50 ML* 50 ML IVPB SCH ×2 (02:29→15:38)
[2016-10-14] MEDS: Levothyroxine TAB* 75 MCG TAB PO SCH (05:51)
[2016-10-14 06:44] LABS: Hematocrit 38 % (42-52); Hemoglobin 12.6 g/dl (14.0-18.0); Mean Corpuscular HGB Conc 33 g/dl (31-36); Mean Corpuscular Hemoglobin 32 pg (27-31); Mean Corpuscular Volume 95 fL (80-94); Mean Platelet Volume 8 um3 (7.4-10.4); Red Blood Count 4.02 10^6/ul (4.0-5.4); Red Cell Distribution Width 17 % (10.5-15); White Blood Count 10.9 10^3/ul (3.5-10.8)
[2016-10-14 07:01] LABS: BUN/Creatinine Ratio 46.8 (8-20); Calcium 7.8 mg/dL (8.6-10.3); EGFR African American 124.1 (>60); EGFR Non-African American 96.5 (>60); Potassium 4.8 mmol/L (3.5-5.0)
[2016-10-14] MEDS: ABIRATERONE 250 MG PO SCH (07:46)
[2016-10-14] MEDS: Docusate CAP* 100 MG PO SCH ×2 (10:10→20:02)
[2016-10-14] MEDS: Metoprolol Tartrate TAB* 25 MG PO SCH ×2 (10:10→20:00)
[2016-10-14] MEDS: Ascorbic Acid TAB* 500 MG PO SCH (10:10)
[2016-10-14] MEDS: Diltiazem CD CAP* 120 MG PO SCH (10:10)
[2016-10-14] MEDS: Gabapentin CAP(*) 100 MG PO SCH ×3 (10:10→20:00)
[2016-10-14] MEDS: Folic Acid TAB* 1 MG PO SCH (10:10)
[2016-10-14] MEDS: Famotidine TAB* 20 MG PO SCH ×2 (10:10→20:00)
[2016-10-14] MEDS: predniSONE TAB* 20 MG PO SCH (10:10)
--- NOTE | 2016-10-14 11:32 | PN ---
Subjective Date of Service: 10/14/16 Interval History: Pt is feeling ok. He has become weaker and it is now felt that he will need to be lifted for transfers. He denies any pain. No SOB. He questions when he may be able to return to rehab. Objective Active Medications: Abiraterone Acetate (Zytiga (Nf)) 1,000 mg PO DAILY [facility] Last Admin: 10/14/16 07:46 Dose: 1,000 mg Acetaminophen (Tylenol Tab*) 650 mg PO Q4H PRN PRN Reason: FEVER/PAIN Ascorbic Acid (Vitamin C Tab*) 500 mg PO DAILY [facility] Last Admin: 10/14/16 10:10 Dose: 500 mg Bisacodyl (Dulcolax Supp*) 10 mg [place] DAILY PRN PRN Reason: CONSTIPATION Diltiazem HCl (Cardizem Cd Cap*) 120 mg PO DAILY [facility] Last Admin: 10/14/16 10:10 Dose: 120 mg Docusate Sodium (Colace Cap*) 100 mg PO BID [facility] Last Admin: 10/14/16 10:10 Dose: Not Given Famotidine (Pepcid Tab*) 20 mg PO BID [facility] Last Admin: 10/14/16 10:10 Dose: 20 mg Folic Acid (Folvite Tab*) 1 mg PO DAILY [facility] Last Admin: 10/14/16 10:10 Dose: 1 mg Gabapentin (Neurontin Cap(*)) 200 mg PO TID [facility] Last Admin: 10/14/16 10:10 Dose: 200 mg Cefepime HCl 1 gm/ Sodium (Chloride) 50 mls @ 100 mls/hr IVPB Q12H [facility] Last Admin: 10/14/16 02:29 Dose: 100 mls/hr Levothyroxine Sodium (Synthroid Tab*) 75 mcg PO DAILY@0600 [facility] Last Admin: 10/14/16 05:51 Dose: 75 mcg Magnesium Hydroxide (Milk Of Magnesia Liq*) 30 ml PO Q6H PRN PRN Reason: CONSTIPATION Metoprolol Tartrate (Lopressor Tab*) 75 mg PO BID [facility] Last Admin: 10/14/16 10:10 Dose: 75 mg Ondansetron HCl (Zofran Inj*) 4 mg IV Q6H PRN PRN Reason: NAUSEA Prednisone (Deltasone Tab*) 60 mg PO DAILY WITH MEAL [facility] Last Admin: 10/14/16 10:10 Dose: 60 mg Senna (Senokot Tab*) 2 tab PO BEDTIME PRN PRN Reason: CONSTIPATION Vital Signs 10/13/16 10/13/16 10/13/16 11:48 15:27 15:51 Temperature 97.3 F Pulse Rate 94 Respiratory 18 18 Rate Blood Pressure 96/66 (mmHg) O2 Sat by Pulse 96 Oximetry 10/13/16 10/13/16 10/13/16 16:00 17:22 19:55 Temperature Pulse Rate Respiratory 16 16 Rate Blood Pressure (mmHg) O2 Sat by Pulse 95 Oximetry 10/13/16 10/13/16 10/13/16 20:00 21:55 23:26 Temperature 97.8 F Pulse Rate 33 Respiratory 18 6 18 Rate Blood Pressure 162/115 (mmHg) O2 Sat by Pulse 100 Oximetry 10/13/16 10/14/16 10/14/16 23:31 00:00 07:38 Temperature 97.5 F Pulse Rate 99 79 Respiratory 20 17 Rate Blood Pressure 103/55 101/67 (mmHg) O2 Sat by Pulse 100 100 99 Oximetry 10/14/16 10/14/16 10/14/16 07:54 09:42 10:10 Temperature Pulse Rate Respiratory 16 18 Rate Blood Pressure (mmHg) O2 Sat by Pulse 99 95 Oximetry Oxygen Devices in Use Now: None Appearance: Elderly male sitting up in a chair, NAD Eyes: No Scleral Icterus Ears/Nose/Mouth/Throat: Mucous Membranes Moist Respiratory: Symmetrical Chest Expansion and Respiratory Effort, Clear to Auscultation Cardiovascular: NL Sounds; No Murmurs; No JVD, RRR, - - R LE> L LE Abdominal: NL Sounds; No Tenderness; No Distention Extremities: No Clubbing, Cyanosis Skin: No Rash or Ulcers, No Nodules or Sclerosis Neurological: Alert and Oriented x 3 Result Diagrams: 10/14/16 06:33 10/14/16 06:33 Microbiology and Other Data: Microbiology 10/11/16 16:45 Urine Culture - Preliminary Urine Serratia Marcescens Assess/Plan/Problems-Billing Mr Rodriguez is an 85 yo M with hx of metastatic prostate cancer, AFib, hypothyroidism, CKD, necrotizing fasciitis of the R LE in 2012, urethroperineal fistula s/p chronic levin, spinal stenosis and recent admission for progressive weakness 2/2 spinal stenosis vs PMR vs paraneoplastic syndrome wqo was re- admitted from [facility] for hematuria. - Patient Problems (1) Bacteremia Current Visit: Yes Status: Acute Code(s): R78.81 - BACTEREMIA SNOMED Code( s): 3397583 Comment: Blood culture grew pseudomonas and his urine culture grew serratia. Continue cefepime for now. ID consult as the source of the psueodomonas is not clear. ? CT abd/pelvis to look for source. (2) Hematuria Current Visit: Yes Status: Acute Code(s): R31.9 - HEMATURIA, UNSPECIFIED SNOMED Code(s): 62487271 Comment: Dr. Parrish saw the patient today and is going to hold off on cystoscopy at this time. His hematuria is improving. Continue to monitor. Will need to get the patient moving more but he is markedly deconditioned and this will be difficult, and monitor for worsening of his hematuria. (3) Polymyalgia rheumatica Current Visit: Yes Status: Acute Code(s): M35.3 - POLYMYALGIA RHEUMATICA SNOMED Code(s): 27884839 Comment: The patient was diagnosed with PMR due to c/o leg weakness and elevated CRP. He remains on prednisone 60mg daily. He was started on methotrexate 10/04/16-will stop this now given the pseudomonas bacteremia. Will ask for rheumatology evaluation given the complexity of his case. (4) Weakness Current Visit: Yes Status: Acute Code(s): R53.1 - WEAKNESS SNOMED Code(s) : 01276300 Comment: ?paraneoplastic, PMR, spinal stenosis. Continue Prednisone at 60 mg daily for now. Hold methotrexate and start PT again. (5) Afib Current Visit: Yes Status: Acute Code(s): I48.91 - UNSPECIFIED ATRIAL FIBRILLATION SNOMED Code(s): 54702082 Comment: Continue metoprolol and diltiazem-HR is under decent control. No AC in the setting of past GI bleed and current hematuria. (6) Chronic indwelling Levin catheter Current Visit: Yes Status: Acute Code(s): Z92.89 - PERSONAL HISTORY OF OTHER MEDICAL TREATMENT SNOMED Code(s): 220679846 Comment: Keep levin in place. (7) Hypothyroidism Current Visit: Yes Status: Acute Code(s): E03.9 - HYPOTHYROIDISM, UNSPECIFIED SNOMED Code(s): 33519027 Comment: Continue current dose of synthroid. (8) Metastatic malignant neoplasm to prostate Current Visit: Yes Status: Acute Code(s): C79.82 - SECONDARY MALIGNANT NEOPLASM OF GENITAL ORGANS SNOMED Code(s): 93783870 Comment: Continue Zytiga. No cystoscopy per Dr. Parrish. (9) DVT prophylaxis Current Visit: Yes Status: Acute Code(s): BYF0622 - SNOMED Code(s): 659404135 Comment: SCDs (10) DNR (do not resuscitate) Current Visit: Yes Status: Acute Status and Disposition: Inpatient for hematuria, bacteremia
--- NOTE | 2016-10-14 13:29 | RAD ---
INDICATION: Right lower extremity swelling. COMPARISON: Comparison is made with a prior study from June 17, 2016. TECHNIQUE: Multiple real-time, color flow and Doppler tracings of the right lower extremity were obtained. FINDINGS: The common femoral, femoral, profunda femoral and popliteal veins all demonstrate normal compressibility, augmentation with compression and phasic response with respiration. The posterior tibial and peroneal veins demonstrate normal compressibility and augmentation with compression. IMPRESSION: NO EVIDENCE FOR DEEP VENOUS THROMBOSIS.
[2016-10-14] MEDS ORDERED: Iohexol 300* (CONTRAST) 10 ML SDV IV ONE (16:49)
--- NOTE | 2016-10-14 18:31 | RAD ---
CLINICAL HISTORY: Bacteremia, abdominal abscess COMPARISON: May 20, 2016 TECHNIQUE: Multiple contiguous axial CT scans were obtained of the abdomen and pelvis after the administration of intravenous contrast. Coronal and sagittal multiplanar reformations are submitted for review. Oral contrast was administered. Delayed images were obtained through the abdomen and pelvis. FINDINGS: LUNG BASES: There are spinal, left greater than right, bilateral pleural effusions. There is minimal dependent atelectasis. LIVER: The liver is normal in shape, size, contour, and attenuation. BILE DUCTS: There is no intrahepatic or extrahepatic biliary dilatation. GALLBLADDER: Multiple gallstones are noted. There is no pericholecystic inflammatory change. PANCREAS: The pancreas is normal, without mass or ductal dilatation. SPLEEN: Normal in size and appearance. UPPER GI TRACT: Evaluation of the gastrointestinal tract is limited by incomplete gastric distention. The upper GI tract is unremarkable. SMALL BOWEL AND MESENTERY: The small bowel is normal in contour, course, and caliber. There is no obstruction or dilatation. COLON: The colon is normal in contour, course, caliber. There is no pericolonic inflammatory change. ADRENALS: Normal bilaterally. KIDNEYS: The kidneys are normal in shape, size, contour, and axis. There is no hydronephrosis or nephrolithiasis. BLADDER: The bladder is collapsed rounded Cole catheter. PELVIC ORGANS: The pelvic organs are not visualized. AORTA: The aorta is normal. IVC: Unremarkable LYMPH NODES: There is no lymphadenopathy by size criteria. ABDOMINAL WALL: There is no evidence for abdominal wall hernia. BONES AND SOFT TISSUES: There are sclerotic lesions of the lower thoracic spine. Degenerative changes are noted. There are scattered sclerotic lesions of the pelvis OTHER: None IMPRESSION: 1. SMALL BILATERAL PLEURAL EFFUSIONS. 2. CHOLELITHIASIS. 3. FINDINGS CONSISTENT WITH OSTEOBLASTIC METASTATIC DISEASE. 4. NO LOCULATED FLUID COLLECTION TO SUGGEST ABSCESS
--- NOTE | 2016-10-14 18:34 | CONSULT ---
Consult Consult: See edis H and P. Mr. Rodriguez is an 85 year old man with a history of metastatic prostate cancer, hematuria and hypothyroidism now with diffuse weakness. He is on a high dose of steroids and is at risk for steroid myopathy. Generally Polymyalgia rheumatica does not require more than 20 to 40mg daily prednisone to induce remission and it should be gradually tapered from that point. Given that he may have a component of steorid myopathy, consider decreasing his prednisone down to 40mg daily. Will follow up serologies; thanks!
[2016-10-14 19:54] LABS: C Reactive Protein 3.95 mg/L (< 5.00)
[2016-10-14 20:35] LABS: TSH (Thyroid Stimulating Horm) 0.52 mcIU/mL (0.34-5.60)
--- NOTE | 2016-10-14 20:49 | CONS ---
CONSULTATION REPORT: DATE OF CONSULT: 10/14/16 CONSULTING SERVICE: Infectious Disease. REASON FOR CONSULT: Pseudomonas bacteremia. IMPRESSION: 1. Pseudomonas in 2/3 bottles of blood that were taken October 11 in the setting of hematuria and weakness. Weakness is subacute and progressive. Other symptoms include anorexia. No other focal signs or symptoms. He has a chronic Cole catheter. The urine sample is growing Serratia marcescens greater than 100,000 colonies. The differential diagnosis for his pseudomonas bacteremia includes another urine pathogen that was not isolated in the urine culture, misidentification of pseudomonas, which may have been serratia, another site of infection, pseudomonas is isolated in the bowels including gallbladder, possibilities include an intra-abdominal abscess including liver abscess or chronic cholecystitis. 2. Polymyalgia rheumatica, on methotrexate and prednisone. 3. Chronic indwelling Cole catheter. RECOMMENDATION: 1. I agree with cefepime 1 g IV 12 hours and we will recheck his blood cultures. 2. CT of the abdomen and pelvis to evaluate the gallbladder and for other intra - abdominal source of infection. HISTORY OF PRESENT ILLNESS: An 85-year-old man with a chronic Cole catheter; history of prostate cancer, prostatectomy; urethroperineal fistula that led to necrotizing fasciitis in the past. He is in the hospital since September 25 with progressive profound weakness treated as flare of polymyalgia rheumatica and evaluation for progression of metastatic disease, which was unremarkable. He had little improvement on corticosteroids and was transferred to [facility] on October 01. He had improvement of his inflammatory markers while on higher-dose prednisone. Differential diagnosis was response of a paraneoplastic syndrome or polymyalgia rheumatica. He was receiving therapy there and was noted to have gross hematuria in his Cole bag on October 11. Urine and blood cultures were taken at the time and then he was transferred to the medical floor. He has been afebrile. Blood pressure has been stable. His white blood cell count on admission was 17,000, persisted until the , is down to 10,000 today. CRP was 120 on admission, decreased to 16 on October 02, today it is 20. His TSH was 0.4 on admission. Urinalysis on October 11 showed blood, leukocyte esterase , white blood cells, red blood cells, and culture results as above. Chest x- ray showed small dependent pleural effusions. He denies pain anywhere including abdominal pain. He does have anorexia, which has been present for approximately 3 weeks and getting worse. He had IVs at his last admission, but he has no sore spots in his arms that he has noticed where previous IVs were. He has been keeping down fluids. He has had no change in his urine output other than the change in color of the urine. He has no prosthetic material present other than the Cole catheter. PAST MEDICAL HISTORY: 1. Prostate cancer, status post prostatectomy and radiation therapy. 2. Urethroperineal fistula complicated by necrotizing fasciitis, status post fasciotomy in the right lower extremity in 2012. 3. Chronic kidney disease. 4. Atrial fibrillation. 5. Melanoma excision on the face. 6. Hypothyroidism. 7. Polymyalgia rheumatica. 8. Neuropathy. 9. Spinal stenosis. 10. Status post appendectomy. 11. Status post urethral dilation. 12. Status post tonsillectomy. MEDICATIONS: 1. Zytiga. 2. Tylenol. 3. Vitamin C. 4. Diltiazem. 5. Docusate. 6. Famotidine. 7. Gabapentin. 8. Levothyroxine. 9. Cefepime 1 g every 12 hours. 10. Metoprolol. 11. Senna. 12. Prednisone 60 mg a day. ALLERGIES: PENICILLIN, tolerating cephalosporins. FAMILY HISTORY: Noncontributory. No recurrent infections. Both parents had cancer. SOCIAL HISTORY: Lives with his , nonsmoker, occasional alcohol. REVIEW OF SYSTEMS: All negative on 12-point review of systems except as noted above. PHYSICAL EXAM: Vital Signs: Temperature 36.4, heart rate 79, respiratory rate 18, blood pressure 101/67, O2 sat 95% on room air. In general, he is awake, in no distress. Neurologic: Oriented x3, follows all commands, moves all extremities. HEENT: There is no conjunctival hemorrhage. Oropharynx: There are no lesions. Neck is supple without nuchal rigidity. Lymph Nodes: There is no cervical, supraclavicular, inguinal, axillary, or epitrochlear lymphadenopathy. Heart has regular rate and rhythm without murmurs, rubs, or gallops. Lungs are clear to auscultation bilaterally. Abdomen is mildly distended, soft, nontender with bowel sounds present. There is no rebound. There is no right upper quadrant tenderness. Skin: There is no rash or splinter hemorrhage. Musculoskeletal: There is right upper extremity soft tissue defect, which is well healed. There is trace edema in the bilateral lower extremities. There is no spine tenderness to palpation. LABORATORY DATA: White blood cell count 10, hemoglobin 12, platelets 168. Creatinine is 0.7. Please see impressions and recommendations outlined above, which I have discussed with Dr. Pat. Thanks for asking me to see Mr. Rodriguez in consultation. [id number]/[facility] #: [id number] MTDD
--- NOTE | 2016-10-15 02:06 | CONS ---
CONSULTATION REPORT: DATE OF CONSULT: 10/14/16 CONSULTING PHYSICIAN: Dr. Pat. REASON FOR CONSULTATION: Polymyalgia rheumatica. CHIEF COMPLAINT: Weakness. HISTORY OF PRESENT ILLNESS: Mr. Rodriguez is a pleasant 85-year-old male who has bee recently diagnosed with polymyalgia rheumatica. He was placed on corticosteroids by his primary care doctor. He came to the hospital originally on the of this month with weakness and was discharged on the . The weakness was thought to be secondary to polymyalgia rheumatica and spinal stenosis possibly perineoplastic syndrome. He has been undergoing rehab and had been there for for about 10 days. Over the last 2 to 3 days, it was noticed that he had been having hematuria which had become more pronounced. Of note, he has a history of metastatic prostate cancer. He has had a urethroperineal fistula. Urology was consulted while in rehab and has felt that he might need a cystoscopy. They are irrigating the bladder and he was transferred to the regular floor. Currently, denies any abdominal discomfort. He denies having any back pain. He denies any chest pain or shortness of breath. He does feel overall weak. He has had no headache or jaw claudication or visual changes. He has been able to walk with physical therapy, but he still feels generally weak. He is still being evaluated for his hematuria. Symptoms are worse as the day goes on lasting all day. PAST MEDICAL HISTORY: Notable for: 1. Metastatic prostate cancer. 2. Atrial fibrillation. 3. Melanoma. 4. Hypothyroidism. 5. Polymyalgia rheumatica. 6. Chronic kidney disease stage 2. 7. Necrotizing fasciitis. 8. Urethroperineal fistula. 9. Uropathy. 10. Spinal stenosis. PAST SURGICAL HISTORY: Includes: 1. Right thigh fasciotomy. 2. Appendectomy. 3. Urethral dilatation. 4. Melanoma excision. 5. Tonsillectomy. HOME MEDICATIONS: Include: 1. Diltiazem 120 mg daily. 2. Suppository 10 mg daily as needed. 3. Vitamin C. 4. Tylenol as needed. 5. Zytiga. 6. Synthroid 75 mcg daily. 7. Gabapentin 200 mg t.i.d. 8. Folic acid. 9. Famotidine. 10. Colace. 11. Multivitamins. 12. Metoprolol. 13. Methotrexate 10 mg every 7 days on Fridays. 14. Milk of magnesia and prednisone 60 mg daily. 15. Senna 2 tablets at bedtime as needed. ALLERGIES: Include PENICILLIN. FAMILY HISTORY: Notable for his parents with cancer. SOCIAL HISTORY: He does not smoke. He rarely drinks any alcohol. His helps to make decisions. REVIEW OF SYSTEMS: General: No documented fever, but he does have generalized weakness. He has had no significant weight changes or night sweats. He has had no double vision. Ears: No ear discharge. No rhinorrhea. No sore throat. Lymph: No swelling. Endocrine: No thyroid swelling. GI: Denies nausea or vomiting. : Notable for hematuria, but no dysuria. He does have a catheter in place. No skin ulceration. Musculoskeletal: Denies joint swelling or pain. Psychiatric: Denies depression. Other 14-point reviewed and were otherwise negative. PHYSICAL EXAM: Temperature is 97.3, O2 sats 95%, blood pressure 101/67, 103/ 55. General: He is pleasant, in no acute distress. Eyes: No scleral icterus. Ears, Nose and Throat: Mucous membranes are moist. Cardiovascular Exam: Revealed a regular rate rhythm. Normal S1 and S2. Minimal lower extremity edema, right greater than left. Lungs were clear to auscultation bilaterally with normal respiratory effort. Abdomen: Normal bowel sounds. No tenderness. No distention. Extremities: No cyanosis or clubbing. Skin: No rash, ulcers. No nodules or sclerosis. Neurologic: Alert and oriented x3. Musculoskeletal: No synovitis or warmth of his joints. He did have motor strength at 4+/5 in the quads, biceps and triceps. DIAGNOSTIC STUDIES/LAB DATA: He had a white count of 10.9, hemoglobin of 12.6, BUN 36, creatinine of 0.77. Urine culture showed Serratia marcescens. ASSESSMENT: 1. He is an 85-year-old male with a history of metastatic prostate cancer, hypothyroidism, renal disease and spinal stenosis with progressive weakness possibly secondary to his underlying musculoskeletal condition, but also polymyalgia rheumatica. At present, he is on a very high dose of steroids; classically with polymyalgia rheumatica usually 20 mg is sufficient in terms of treating and controlling the inflammation. I would consider therefore decreasing the prednisone to 40 mg daily as he is at risk for steroid myopathy and this may be contributing to his weakness. Also, he does have a history of malignancy and he certainly may have a perineoplastic syndrome as well contributing to his symptoms. Would also consider following his thyroid function closely. If this is low, this could also explain some weakness and would check a CPK as well. In regards to his steroids, again I would consider decreasing the prednisone down to 40 mg daily. 2. Hematuria. Follow up with Urology. 3. Polymyalgia rheumatica. Would follow inflammatory markers. His methotrexate is on hold given the bacteremia which I agree with. 4. Weakness. Would reduce the prednisone to 40 mg daily. TIME SPENT: With the patient was greater than 60 minutes with greater than 50% of the time spent counseling the patient. [id number]/CPS #: [id number] JONAH
[2016-10-15] MEDS: Cefepime(*) 1 GM in NS 0.9% 50 ML* 50 ML IVPB SCH ×2 (04:18→15:46)
[2016-10-15] MEDS: Levothyroxine TAB* 75 MCG TAB PO SCH (06:02)
[2016-10-15] MEDS: predniSONE TAB* 20 MG PO SCH (09:13)
[2016-10-15] MEDS: Gabapentin CAP(*) 100 MG PO SCH ×3 (09:14→21:01)
[2016-10-15] MEDS: Diltiazem CD CAP* 120 MG PO SCH (09:14)
[2016-10-15] MEDS: Metoprolol Tartrate TAB* 25 MG PO SCH ×2 (09:14→21:01)
[2016-10-15] MEDS: Docusate CAP* 100 MG PO SCH ×4 (09:14→21:06)
[2016-10-15] MEDS: Famotidine TAB* 20 MG PO SCH ×2 (09:15→21:01)
[2016-10-15] MEDS: ABIRATERONE 250 MG PO SCH (09:15)
[2016-10-15] MEDS: Folic Acid TAB* 1 MG PO SCH (09:15)
[2016-10-15] MEDS: Ascorbic Acid TAB* 500 MG PO SCH (09:15)
--- NOTE | 2016-10-15 11:48 | PN ---
Subjective Date of Service: 10/15/16 Interval History: Pt is feeling ok. He is interested in getting back to PT. He denies any pain at this time. No SOB. Objective Active Medications: Abiraterone Acetate (Zytiga (Nf)) 1,000 mg PO DAILY [facility] Last Admin: 10/15/16 09:15 Dose: 1,000 mg Acetaminophen (Tylenol Tab*) 650 mg PO Q4H PRN PRN Reason: FEVER/PAIN Ascorbic Acid (Vitamin C Tab*) 500 mg PO DAILY [facility] Last Admin: 10/15/16 09:15 Dose: 500 mg Bisacodyl (Dulcolax Supp*) 10 mg LA DAILY PRN PRN Reason: CONSTIPATION Diltiazem HCl (Cardizem Cd Cap*) 120 mg PO DAILY [facility] Last Admin: 10/15/16 09:14 Dose: 120 mg Docusate Sodium (Colace Cap*) 100 mg PO BID [facility] Last Admin: 10/15/16 09:26 Dose: Not Given Famotidine (Pepcid Tab*) 20 mg PO BID [facility] Last Admin: 10/15/16 09:15 Dose: 20 mg Folic Acid (Folvite Tab*) 1 mg PO DAILY [facility] Last Admin: 10/15/16 09:15 Dose: 1 mg Gabapentin (Neurontin Cap(*)) 200 mg PO TID [facility] Last Admin: 10/15/16 09:14 Dose: 200 mg Cefepime HCl 1 gm/ Sodium (Chloride) 50 mls @ 100 mls/hr IVPB Q12H [facility] Last Admin: 10/15/16 04:18 Dose: 100 mls/hr Levothyroxine Sodium (Synthroid Tab*) 75 mcg PO DAILY@0600 [facility] Last Admin: 10/15/16 06:02 Dose: 75 mcg Magnesium Hydroxide (Milk Of Magnesia Liq*) 30 ml PO Q6H PRN PRN Reason: CONSTIPATION Metoprolol Tartrate (Lopressor Tab*) 75 mg PO BID [facility] Last Admin: 10/15/16 09:14 Dose: 75 mg Ondansetron HCl (Zofran Inj*) 4 mg IV Q6H PRN PRN Reason: NAUSEA Prednisone (Deltasone Tab*) 40 mg PO DAILY WITH MEAL [facility] Senna (Senokot Tab*) 2 tab PO BEDTIME PRN PRN Reason: CONSTIPATION Vital Signs 10/14/16 10/14/16 10/14/16 12:10 15:33 16:05 Temperature 97.3 F Pulse Rate 95 Respiratory 18 18 Rate Blood Pressure 122/70 (mmHg) O2 Sat by Pulse 100 95 Oximetry 10/14/16 10/14/16 10/14/16 20:00 22:00 23:32 Temperature 97.2 F Pulse Rate 46 Respiratory 18 20 16 Rate Blood Pressure 133/71 (mmHg) O2 Sat by Pulse 100 Oximetry 10/15/16 10/15/16 10/15/16 07:42 09:09 09:14 Temperature 97.5 F Pulse Rate 84 82 Respiratory 16 18 Rate Blood Pressure 98/56 102/58 (mmHg) O2 Sat by Pulse 99 Oximetry Oxygen Devices in Use Now: None Appearance: Elderly male sitting up in bed, NAD Eyes: No Scleral Icterus Ears/Nose/Mouth/Throat: Mucous Membranes Moist Respiratory: Symmetrical Chest Expansion and Respiratory Effort, Clear to Auscultation Cardiovascular: NL Sounds; No Murmurs; No JVD, RRR, No Edema Abdominal: NL Sounds; No Tenderness; No Distention Extremities: No Clubbing, Cyanosis Skin: No Rash or Ulcers, No Nodules or Sclerosis Neurological: Alert and Oriented x 3 Result Diagrams: 10/14/16 06:33 10/14/16 06:33 Microbiology and Other Data: Microbiology 10/11/16 16:45 Urine Culture - Preliminary Urine Serratia Marcescens Assess/Plan/Problems-Billing Mr Rodriguez is an 85 yo M with hx of metastatic prostate cancer, AFib, hypothyroidism, CKD, necrotizing fasciitis of the R LE in 2012, urethroperineal fistula s/p chronic levin, spinal stenosis and recent admission for progressive weakness 2/2 spinal stenosis vs PMR vs paraneoplastic syndrome wqo was re- admitted from [facility] for hematuria. - Patient Problems (1) Bacteremia Current Visit: Yes Status: Acute Code(s): R78.81 - BACTEREMIA SNOMED Code( s): 1005261 Comment: + pseudomonas bacteremia. Follow up blood cultures obtained and pending. CT abd/pelvis negative for abscess. Unclear where the source of the pseudomonas is. Continue cefepime 1g IV q12h. (2) UTI (urinary tract infection) Current Visit: Yes Status: Acute Comment: The patient has a serratia UTI that is catheter associated and present on admission- sensitive to cefepime. Continue to treat for UTI and pseudomonas bacteremia. (3) Hematuria Current Visit: Yes Status: Acute Code(s): R31.9 - HEMATURIA, UNSPECIFIED SNOMED Code(s): 84718013 Comment: Dr. Parrish saw the patient and is going to hold off on cystoscopy at this time. His hematuria is improving (almost completely resolved today). Continue to monitor. Will need to get the patient moving more but he is markedly deconditioned and this will be difficult, and monitor for worsening of his hematuria. (4) Polymyalgia rheumatica Current Visit: Yes Status: Acute Code(s): M35.3 - POLYMYALGIA RHEUMATICA SNOMED Code(s): 30991381 Comment: Appreciate rheumatology evaluation. Cut down prednisone to 40mg daily. ? steroid myopathy as if he had PMR he should have responded to just 20mg of prednisone. CPK has been ordered as recommended by Dr. Brady. He will continue with PT/OT-? PMRU vs MINDY. (5) Weakness Current Visit: Yes Status: Acute Code(s): R53.1 - WEAKNESS SNOMED Code(s) : 67949523 Comment: ?paraneoplastic, PMR, spinal stenosis. Continue prednisone but decrease to 40mg daily. Hold methotrexate and start PT again. (6) Afib Current Visit: Yes Status: Acute Code(s): I48.91 - UNSPECIFIED ATRIAL FIBRILLATION SNOMED Code(s): 85705430 Comment: Continue metoprolol and diltiazem-HR is under decent control. No AC in the setting of past GI bleed and current hematuria. (7) Chronic indwelling Levin catheter Current Visit: Yes Status: Acute Code(s): Z92.89 - PERSONAL HISTORY OF OTHER MEDICAL TREATMENT SNOMED Code(s): 982998465 Comment: Keep levin in place. (8) Hypothyroidism Current Visit: Yes Status: Acute Code(s): E03.9 - HYPOTHYROIDISM, UNSPECIFIED SNOMED Code(s): 75476582 Comment: Continue current dose of synthroid. (9) Metastatic malignant neoplasm to prostate Current Visit: Yes Status: Acute Code(s): C79.82 - SECONDARY MALIGNANT NEOPLASM OF GENITAL ORGANS SNOMED Code(s): 93585822 Comment: Continue Zytiga. No cystoscopy per Dr. Parrish. Will touch base with oncology about his outpatient zometa infustion that is scheduled for . (10) DVT prophylaxis Current Visit: Yes Status: Acute Code(s): CFA6527 - SNOMED Code(s): 946662397 Comment: Alonzo (11) DNR (do not resuscitate) Current Visit: Yes Status: Acute Status and Disposition: Inpatient for hematuria, bacteremia
[2016-10-16] MEDS: Cefepime(*) 1 GM in NS 0.9% 50 ML* 50 ML IVPB SCH ×2 (02:57→15:43)
[2016-10-16 05:43] LABS: Hematocrit 37 % (42-52); Hemoglobin 12.4 g/dl (14.0-18.0); Mean Corpuscular HGB Conc 34 g/dl (31-36); Mean Corpuscular Hemoglobin 32 pg (27-31); Mean Corpuscular Volume 95 fL (80-94); Mean Platelet Volume 8 um3 (7.4-10.4); Red Blood Count 3.92 10^6/ul (4.0-5.4); Red Cell Distribution Width 17 % (10.5-15); White Blood Count 8.5 10^3/ul (3.5-10.8)
[2016-10-16] MEDS: Levothyroxine TAB* 75 MCG TAB PO SCH (05:43)
[2016-10-16 05:44] LABS: Add Diff/Slide Review? Slide Review Added; Comments Flag Yes
[2016-10-16 06:06] LABS: BUN/Creatinine Ratio 44.9 (8-20); Calcium 7.4 mg/dL (8.6-10.3); EGFR African American 140.8 (>60); EGFR Non-African American 109.5 (>60); Potassium 4.5 mmol/L (3.5-5.0)
[2016-10-16] MEDS: Famotidine TAB* 20 MG PO SCH ×2 (08:49→21:41)
[2016-10-16] MEDS: Folic Acid TAB* 1 MG PO SCH (08:49)
[2016-10-16] MEDS: Ascorbic Acid TAB* 500 MG PO SCH (08:49)
[2016-10-16] MEDS: Docusate CAP* 100 MG PO SCH ×3 (08:49→21:46)
[2016-10-16] MEDS: Gabapentin CAP(*) 100 MG PO SCH ×3 (08:49→21:40)
[2016-10-16] MEDS: Metoprolol Tartrate TAB* 25 MG PO SCH ×2 (08:49→21:41)
[2016-10-16] MEDS: predniSONE TAB* 20 MG PO SCH (08:49)
[2016-10-16] MEDS: Diltiazem CD CAP* 120 MG PO SCH (08:50)
[2016-10-16] MEDS: ABIRATERONE 250 MG PO SCH (08:50)
[2016-10-16 12:24] LABS: Creatine Kinase 23 U/L (52 - 336)
--- NOTE | 2016-10-16 14:41 | PN ---
Progress Note - Progress Note SOAP: Subjective: DOS: 10/16/16 CC: weakness HPI: 85 year old man with chronic levin, PMR, admission for weakness, now with hematuria and Pseudomonas bacteremia detected while on PMRU. No fever, rash, or diarrhea. Feels well. Tolerating antibiotics well. Objective: [] Vital Signs Temp 36.4 C 10/16/16 08:12 Pulse 74 10/16/16 08:12 Resp 22 10/16/16 14:32 BP 120/76 10/16/16 08:12 Pulse Ox 95 10/16/16 08:12 Intake & Output 10/15/16 10/16/16 10/16/16 18:59 06:59 18:59 Intake Total 1320 290 720 Output Total 1900 Balance 1320 -1610 720 Intake: IV Fluids 20 NS (0.9%) 20 IVPB 60 50 ABX - CEFEPIME 60 50 Oral 1240 240 720 Output: Levin 1900 Other: Date of Last Bowel 10/16/16 Movement # Bowel Movements 0 1 Estimated Stool Amount Medium # Voids 3 Gen:AAOx3 HEENT:PERRL, MMM Neck:Supple Heart:RRR no murmur Lungs:CTA BL Abd:+BS NTND soft Skin: no rash MSK: no joint synovitis : levin catheter Laboratory Results - last 24 hr 10/14/16 10/16/16 10/16/16 19:33 05:31 05:31 WBC 8.5 RBC 3.92 L Hgb 12.4 L Hct 37 L MCV 95 H MCH 32 H MCHC 34 RDW 17 H Plt Count 136 L MPV 8 Neut % (Auto) 91.8 H Lymph % (Auto) 4.8 L [place] % (Auto) 3.2 Eos % (Auto) 0 Baso % (Auto) 0.2 Absolute Neuts (auto) 7.8 H Absolute Lymphs (auto) 0.4 L Absolute Monos (auto) 0.3 Absolute Eos (auto) 0 Absolute Basos (auto) 0 Absolute Nucleated RBC 0.02 Nucleated RBC % 0.3 Sodium 129 L Potassium 4.5 Chloride 99 L Carbon Dioxide 23 Anion Gap 7 BUN 31 H Creatinine 0.69 Est GFR ( Amer) 140.8 Est GFR (Non-Af Amer) 109.5 BUN/Creatinine Ratio 44.9 H Glucose 134 H Calcium 7.4 L Creatine Kinase 23 L CK Isoenzymes Spec See comment Assessment: 1. Pseudomonas bacteremia, CT A/P negative and no other focal signs or symptoms , suspect urinary source 2. PMR on corticosteroids 3. chronic levin catheter 4. hematuria, likely due to infection Plan: 1. continue cefepime, recheck BC, if negative will plan on PO cipro to finish course. Discussed with Dr Pat 35 minutes floor time >50% face to face with patient and his discussing Bacteremia evaluation, treatment, and their side effects, all questions answered .
--- NOTE | 2016-10-16 16:00 | PN ---
Subjective Date of Service: 10/16/16 Interval History: Pt is feeling ok. He does not feel like he will be able to do the required amount of rehab for PMRU. He denies any pain. He feels very weak. Objective Active Medications: Abiraterone Acetate (Zytiga (Nf)) 1,000 mg PO DAILY [facility] Last Admin: 10/16/16 08:50 Dose: 1,000 mg Acetaminophen (Tylenol Tab*) 650 mg PO Q4H PRN PRN Reason: FEVER/PAIN Ascorbic Acid (Vitamin C Tab*) 500 mg PO DAILY [facility] Last Admin: 10/16/16 08:49 Dose: 500 mg Bisacodyl (Dulcolax Supp*) 10 mg NE DAILY PRN PRN Reason: CONSTIPATION Diltiazem HCl (Cardizem Cd Cap*) 120 mg PO DAILY [facility] Last Admin: 10/16/16 08:50 Dose: 120 mg Docusate Sodium (Colace Cap*) 100 mg PO BID [facility] Last Admin: 10/16/16 09:06 Dose: Not Given Famotidine (Pepcid Tab*) 20 mg PO BID [facility] Last Admin: 10/16/16 08:49 Dose: 20 mg Folic Acid (Folvite Tab*) 1 mg PO DAILY [facility] Last Admin: 10/16/16 08:49 Dose: 1 mg Gabapentin (Neurontin Cap(*)) 200 mg PO TID [facility] Last Admin: 10/16/16 14:32 Dose: 200 mg Cefepime HCl 1 gm/ Sodium (Chloride) 50 mls @ 100 mls/hr IVPB Q12H [facility] Last Admin: 10/16/16 02:57 Dose: 100 mls/hr Levothyroxine Sodium (Synthroid Tab*) 75 mcg PO DAILY@0600 [facility] Last Admin: 10/16/16 05:43 Dose: 75 mcg Magnesium Hydroxide (Milk Of Magnesia Liq*) 30 ml PO Q6H PRN PRN Reason: CONSTIPATION Metoprolol Tartrate (Lopressor Tab*) 75 mg PO BID [facility] Last Admin: 10/16/16 08:49 Dose: 75 mg Ondansetron HCl (Zofran Inj*) 4 mg IV Q6H PRN PRN Reason: NAUSEA Prednisone (Deltasone Tab*) 40 mg PO DAILY WITH MEAL [facility] Last Admin: 10/16/16 08:49 Dose: 40 mg Senna (Senokot Tab*) 2 tab PO BEDTIME PRN PRN Reason: CONSTIPATION Vital Signs 10/15/16 10/15/16 10/15/16 16:00 17:03 20:00 Temperature Pulse Rate Respiratory 16 18 Rate Blood Pressure (mmHg) O2 Sat by Pulse 96 Oximetry 10/15/16 10/15/16 10/15/16 21:01 23:01 23:15 Temperature 97.7 F Pulse Rate 70 Respiratory 16 16 16 Rate Blood Pressure 132/78 (mmHg) O2 Sat by Pulse 97 Oximetry 10/16/16 10/16/16 10/16/16 00:00 08:00 08:12 Temperature 97.5 F Pulse Rate 74 Respiratory 18 20 Rate Blood Pressure 120/76 (mmHg) O2 Sat by Pulse 97 95 95 Oximetry 10/16/16 10/16/16 10/16/16 08:49 10:49 14:32 Temperature Pulse Rate Respiratory 18 16 22 Rate Blood Pressure (mmHg) O2 Sat by Pulse Oximetry 10/16/16 15:14 Temperature 98.6 F Pulse Rate 68 Respiratory 18 Rate Blood Pressure 108/68 (mmHg) O2 Sat by Pulse 99 Oximetry Oxygen Devices in Use Now: None Appearance: Elderly male lying in bed, NAD Eyes: No Scleral Icterus Ears/Nose/Mouth/Throat: Mucous Membranes Moist Respiratory: Symmetrical Chest Expansion and Respiratory Effort, Clear to Auscultation - anteriorly Cardiovascular: NL Sounds; No Murmurs; No JVD, - - irregularly irregular, 2+ LE edema Abdominal: NL Sounds; No Tenderness; No Distention Extremities: No Clubbing, Cyanosis Skin: No Rash or Ulcers, No Nodules or Sclerosis Neurological: Alert and Oriented x 3 Result Diagrams: 10/16/16 05:31 10/16/16 05:31 Microbiology and Other Data: Microbiology 10/11/16 16:45 Urine Culture - Preliminary Urine Serratia Marcescens Assess/Plan/Problems-Billing Mr Rodriguez is an 85 yo M with hx of metastatic prostate cancer, AFib, hypothyroidism, CKD, necrotizing fasciitis of the R LE in 2012, urethroperineal fistula s/p chronic levin, spinal stenosis and recent admission for progressive weakness 2/2 spinal stenosis vs PMR vs paraneoplastic syndrome wqo was re- admitted from [facility] for hematuria. - Patient Problems (1) Bacteremia Current Visit: Yes Status: Acute Code(s): R78.81 - BACTEREMIA SNOMED Code( s): 9668608 Comment: + pseudomonas bacteremia. Follow up blood cultures pending-if negative will change to cipro to complete a course of therapy. CT abd/pelvis negative for abscess. For now continue cefepime 1g IV q12h. (2) UTI (urinary tract infection) Current Visit: Yes Status: Acute Comment: The patient has a serratia UTI that is catheter associated and present on admission- sensitive to cefepime. Continue to treat for UTI and pseudomonas bacteremia. (3) Hematuria Current Visit: Yes Status: Acute Code(s): R31.9 - HEMATURIA, UNSPECIFIED SNOMED Code(s): 72925688 Comment: Dr. Parrish saw the patient and is going to hold off on cystoscopy at this time. His hematuria is improving-possibly related to his UTI. Continue to monitor. Will need to get the patient moving more but he is markedly deconditioned and this will be difficult, and monitor for worsening of his hematuria. (4) Polymyalgia rheumatica Current Visit: Yes Status: Acute Code(s): M35.3 - POLYMYALGIA RHEUMATICA SNOMED Code(s): 57832473 Comment: Appreciate rheumatology evaluation. Continue prednisone 40mg daily. Will likely need MINDY upon discharge. ? paraneoplastic syndrome causing his worsened weakness. Follow CRP with reduction in prednisone. (5) Weakness Current Visit: Yes Status: Acute Code(s): R53.1 - WEAKNESS SNOMED Code(s) : 25724576 Comment: ?paraneoplastic, PMR, spinal stenosis. Continue prednisone 40mg daily. Hold methotrexate and start PT again. (6) Afib Current Visit: Yes Status: Acute Code(s): I48.91 - UNSPECIFIED ATRIAL FIBRILLATION SNOMED Code(s): 10923973 Comment: Continue metoprolol and diltiazem-HR is under decent control. No AC in the setting of past GI bleed and current hematuria. (7) Chronic indwelling Levin catheter Current Visit: Yes Status: Acute Code(s): Z92.89 - PERSONAL HISTORY OF OTHER MEDICAL TREATMENT SNOMED Code(s): 168095020 Comment: Keep levin in place. (8) Hypothyroidism Current Visit: Yes Status: Acute Code(s): E03.9 - HYPOTHYROIDISM, UNSPECIFIED SNOMED Code(s): 80578219 Comment: Continue current dose of synthroid. (9) Metastatic malignant neoplasm to prostate Current Visit: Yes Status: Acute Code(s): C79.82 - SECONDARY MALIGNANT NEOPLASM OF GENITAL ORGANS SNOMED Code(s): 33711791 Comment: Continue Zytiga. No cystoscopy per Dr. Parrish. Will touch base with oncology about his outpatient zometa infustion that is scheduled for . (10) DVT prophylaxis Current Visit: Yes Status: Acute Code(s): AFJ2974 - SNOMED Code(s): 015243823 Comment: SCDs (11) DNR (do not resuscitate) Current Visit: Yes Status: Acute Status and Disposition: Inpatient for hematuria, bacteremia
--- NOTE | 2016-10-16 18:43 | CONSULT ---
Consult Consult: Consult follow up Note Patient: CARMELITA RODRIGUEZ /Age: 0512/13/1930 85 Medical Record#: [id number] Admission Date: 10/11/16 Provider: Geoff Brady MD Subjective Date of Service: 10/16/16 Interval History: Chief Complaint: weakness. Mr. Rodriguez is primarily concerned about ongoing weakness; he no longer is able to ambulate and requires assistance with activities of daily living; he denies joint pain or shortness of breath, but it has been hard to perform even light exercises; he feels diffusely weak. He denies any pain. He feels very weak. Objective Active Medications: Abiraterone Acetate (Zytiga (Nf)) 1,000 mg PO DAILY [facility] Last Admin: 10/16/16 08:50 Dose: 1,000 mg Acetaminophen (Tylenol Tab*) 650 mg PO Q4H PRN PRN Reason: FEVER/PAIN Ascorbic Acid (Vitamin C Tab*) 500 mg PO DAILY [facility] Last Admin: 10/16/16 08:49 Dose: 500 mg Bisacodyl (Dulcolax Supp*) 10 mg MD DAILY PRN PRN Reason: CONSTIPATION Diltiazem HCl (Cardizem Cd Cap*) 120 mg PO DAILY [facility] Last Admin: 10/16/16 08:50 Dose: 120 mg Docusate Sodium (Colace Cap*) 100 mg PO BID [facility] Last Admin: 10/16/16 09:06 Dose: Not Given Famotidine (Pepcid Tab*) 20 mg PO BID [facility] Last Admin: 10/16/16 08:49 Dose: 20 mg Folic Acid (Folvite Tab*) 1 mg PO DAILY [facility] Last Admin: 10/16/16 08:49 Dose: 1 mg Gabapentin (Neurontin Cap(*)) 200 mg PO TID [facility] Last Admin: 10/16/16 14:32 Dose: 200 mg Cefepime HCl 1 gm/ Sodium (Chloride) 50 mls @ 100 mls/hr IVPB Q12H [facility] Last Admin: 10/16/16 02:57 Dose: 100 mls/hr Levothyroxine Sodium (Synthroid Tab*) 75 mcg PO DAILY@0600 [facility] Last Admin: 10/16/16 05:43 Dose: 75 mcg Magnesium Hydroxide (Milk Of Magnesia Liq*) 30 ml PO Q6H PRN PRN Reason: CONSTIPATION Metoprolol Tartrate (Lopressor Tab*) 75 mg PO BID [facility] Last Admin: 10/16/16 08:49 Dose: 75 mg Ondansetron HCl (Zofran Inj*) 4 mg IV Q6H PRN PRN Reason: NAUSEA Prednisone (Deltasone Tab*) 40 mg PO DAILY WITH MEAL [facility] Last Admin: 10/16/16 08:49 Dose: 40 mg Senna (Senokot Tab*) 2 tab PO BEDTIME PRN PRN Reason: CONSTIPATION Vital Signs 10/15/16 10/15/16 16:00 17:03 20:00 Temperature Pulse Rate Respiratory 16 18 Rate Blood Pressure (mmHg) O2 Sat by Pulse 96 Oximetry 10/15/16 10/15/16 21:01 23:01 23:15 Temperature 97.7 F Pulse Rate 70 Respiratory 16 16 16 Rate Blood Pressure 132/78 (mmHg) O2 Sat by Pulse 97 Oximetry 10/16/16 10/16/16 00:00 08:00 08:12 Temperature 97.5 F Pulse Rate 74 Respiratory 18 20 Rate Blood Pressure 120/76 (mmHg) O2 Sat by Pulse 97 95 95 Oximetry 10/16/16 10/16/16 08:49 10:49 14:32 Temperature Pulse Rate Respiratory 18 16 22 Rate Blood Pressure (mmHg) O2 Sat by Pulse Oximetry 10/16/16 15:14 Temperature 98.6 F Pulse Rate 68 Respiratory 18 Rate Blood Pressure 108/68 ( mmHg) O2 Sat by Pulse 99 Oximetry Oxygen Devices in Use Now: None Appearance: Elderly male lying in bed, NAD Eyes: No Scleral Icterus Ears/Nose/Mouth/Throat: Mucous Membranes Moist Respiratory: Symmetrical Chest Expansion and Respiratory Effort, Clear to Auscultation - anteriorly Cardiovascular: NL Sounds; No Murmurs; No JVD, - - irregularly irregular, 2+ LE edema Abdominal: NL Sounds; No Tenderness; No Distention Extremities: No Clubbing, Cyanosis Skin: No Rash or Ulcers, No Nodules or Sclerosis Neurological: Alert and Oriented x 3 m/s motor strength 4/5 quads and biceps and triceps, CN 2 through 12 intact but shoulders are slightly restricted Result Diagrams: 05:31 CK low, TSH is normal 05:31 Microbiology and Other Data: Microbiology 10/11/16 16:45 Urine Culture - Preliminary Urine Serratia Marcescens Assess/Plan/Problems-Billing Mr Rodriguez is an 85 yo M with hx of metastatic prostate cancer, hypothyroidism, possible polymyalgia rheumatica, urethroperineal fistula s/p chronic levin, spinal stenosis and recent admission , for progressive weakness. His case was discussed today with his primary care out patient physician, Dr. Laguna. His general weakness is complicated and may be multifactorial, in part to his malignancy or spinal stenosis; as inflammatory markers are normal, we should continue to gradually wean steroids. - Patient Problems (1) Weakness. Consider tapering prednisone to 30mg daily tomorrow, with goal of tapering prednisone by 10mg every 3 days down to baseline of 10mg daily, and this can be then tapered more slowly 2) PMR: overall inflammatory markers look good 3) Prostate cancer: per urology 4) Low CPK: may be nutritinal from low body mass. This supports an underlying myopathy. 5) Deconditioning: continue light therapy as tolerated
[2016-10-17] MEDS: Cefepime(*) 1 GM in NS 0.9% 50 ML* 50 ML IVPB SCH ×2 (03:17→15:29)
[2016-10-17] MEDS: Levothyroxine TAB* 75 MCG TAB PO SCH (05:26)
[2016-10-17] MEDS: Diltiazem CD CAP* 120 MG PO SCH (08:02)
[2016-10-17] MEDS: Gabapentin CAP(*) 100 MG PO SCH ×3 (08:02→20:54)
[2016-10-17] MEDS: Metoprolol Tartrate TAB* 25 MG PO SCH ×2 (08:03→20:15)
[2016-10-17] MEDS: Ascorbic Acid TAB* 500 MG PO SCH (08:03)
[2016-10-17] MEDS: Famotidine TAB* 20 MG PO SCH ×2 (08:03→20:53)
[2016-10-17] MEDS: Folic Acid TAB* 1 MG PO SCH (08:03)
[2016-10-17] MEDS: predniSONE TAB* 20 MG PO SCH (08:03)
[2016-10-17] MEDS: Docusate CAP* 100 MG PO SCH ×2 (08:07→20:15)
[2016-10-17] MEDS: ABIRATERONE 250 MG PO SCH (11:02)
--- NOTE | 2016-10-17 17:13 | PN ---
Subjective Date of Service: 10/17/16 Interval History: Pt is feeling well. He is worried about his legs being so weak. He has been working on upper extremity strength. Objective Active Medications: Abiraterone Acetate (Zytiga (Nf)) 1,000 mg PO DAILY [facility] Last Admin: 10/17/16 11:02 Dose: 1,000 mg Acetaminophen (Tylenol Tab*) 650 mg PO Q4H PRN PRN Reason: FEVER/PAIN Ascorbic Acid (Vitamin C Tab*) 500 mg PO DAILY [facility] Last Admin: 10/17/16 08:03 Dose: 500 mg Bisacodyl (Dulcolax Supp*) 10 mg [place] DAILY PRN PRN Reason: CONSTIPATION Cyanocobalamin (Vitamin B12 Tab*) 1,000 mcg PO DAILY [facility] Diltiazem HCl (Cardizem Cd Cap*) 120 mg PO DAILY [facility] Last Admin: 10/17/16 08:02 Dose: 120 mg Docusate Sodium (Colace Cap*) 100 mg PO BID [facility] Last Admin: 10/17/16 08:07 Dose: Not Given Famotidine (Pepcid Tab*) 20 mg PO BID [facility] Last Admin: 10/17/16 08:03 Dose: 20 mg Folic Acid (Folvite Tab*) 1 mg PO DAILY [facility] Last Admin: 10/17/16 08:03 Dose: 1 mg Gabapentin (Neurontin Cap(*)) 200 mg PO TID [facility] Last Admin: 10/17/16 15:32 Dose: 200 mg Cefepime HCl 1 gm/ Sodium (Chloride) 50 mls @ 100 mls/hr IVPB Q12H [facility] Last Admin: 10/17/16 15:29 Dose: 100 mls/hr Levothyroxine Sodium (Synthroid Tab*) 75 mcg PO DAILY@0600 [facility] Last Admin: 10/17/16 05:26 Dose: 75 mcg Magnesium Hydroxide (Milk Of Magnesia Liq*) 30 ml PO Q6H PRN PRN Reason: CONSTIPATION Metoprolol Tartrate (Lopressor Tab*) 75 mg PO BID [facility] Last Admin: 10/17/16 08:03 Dose: 75 mg Ondansetron HCl (Zofran Inj*) 4 mg IV Q6H PRN PRN Reason: NAUSEA Prednisone (Deltasone Tab*) 30 mg PO DAILY WITH MEAL [facility] Senna (Senokot Tab*) 2 tab PO BEDTIME PRN PRN Reason: CONSTIPATION Vital Signs 10/16/16 10/16/16 10/16/16 20:00 21:40 21:42 Temperature Pulse Rate 65 Respiratory 17 17 Rate Blood Pressure 111/70 (mmHg) O2 Sat by Pulse Oximetry 10/16/16 10/16/16 10/17/16 23:16 23:40 07:39 Temperature 97.1 F 97.5 F Pulse Rate 75 90 Respiratory 16 16 15 Rate Blood Pressure 156/106 108/54 (mmHg) O2 Sat by Pulse 100 96 Oximetry 10/17/16 10/17/16 10/17/16 08:00 08:02 10:02 Temperature Pulse Rate Respiratory 16 16 16 Rate Blood Pressure (mmHg) O2 Sat by Pulse Oximetry 10/17/16 10/17/16 10/17/16 15:32 15:56 15:59 Temperature 96.8 F 96.4 F Pulse Rate 81 Respiratory 16 16 Rate Blood Pressure 95/57 (mmHg) O2 Sat by Pulse 98 Oximetry Oxygen Devices in Use Now: None Appearance: Elderly male sitting up in bed, NAD Eyes: No Scleral Icterus Ears/Nose/Mouth/Throat: Mucous Membranes Moist Respiratory: Symmetrical Chest Expansion and Respiratory Effort, Clear to Auscultation - anteriorly Cardiovascular: NL Sounds; No Murmurs; No JVD, RRR, No Edema Abdominal: NL Sounds; No Tenderness; No Distention Extremities: No Clubbing, Cyanosis Skin: No Rash or Ulcers, No Nodules or Sclerosis Neurological: Alert and Oriented x 3 Result Diagrams: 10/16/16 05:31 10/16/16 05:31 Microbiology and Other Data: Microbiology 10/11/16 16:45 Urine Culture - Preliminary Urine Serratia Marcescens Assess/Plan/Problems-Billing Mr Rodriguez is an 85 yo M with hx of metastatic prostate cancer, AFib, hypothyroidism, CKD, necrotizing fasciitis of the R LE in 2012, urethroperineal fistula s/p chronic levin, spinal stenosis and recent admission for progressive weakness 2/2 spinal stenosis vs PMR 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 - Patient Problems (1) Bacteremia Current Visit: Yes Status: Acute Code(s): R78.81 - BACTEREMIA SNOMED Code( s): 0344238 Comment: + pseudomonas bacteremia. Follow up blood cultures pending-if negative will change to cipro to complete a course of therapy-likely change to cipro tomorrow. For now continue cefepime 1g IV q12h. (2) UTI (urinary tract infection) Current Visit: Yes Status: Acute Comment: The patient has a serratia UTI that is catheter associated and present on admission- sensitive to cefepime. Continue to treat for UTI and pseudomonas bacteremia. (3) Hematuria Current Visit: Yes Status: Acute Code(s): R31.9 - HEMATURIA, UNSPECIFIED SNOMED Code(s): 17743268 Comment: Resolved. (4) Polymyalgia rheumatica Current Visit: Yes Status: Acute Code(s): M35.3 - POLYMYALGIA RHEUMATICA SNOMED Code(s): 62116389 Comment: Reduce prednisone to 30mg daily to start tomorrow. Multifactorial weakness-plan is for the patient to go back to [facility] tomorrow. (5) Weakness Current Visit: Yes Status: Acute Code(s): R53.1 - WEAKNESS SNOMED Code(s) : 61576676 Comment: ?paraneoplastic, PMR, spinal stenosis. Continue prednisone 30mg daily. Hold methotrexate and start PT again. (6) Afib Current Visit: Yes Status: Acute Code(s): I48.91 - UNSPECIFIED ATRIAL FIBRILLATION SNOMED Code(s): 87568973 Comment: Continue metoprolol and diltiazem-HR is under decent control. No AC in the setting of past GI bleed. (7) Chronic indwelling Levin catheter Current Visit: Yes Status: Acute Code(s): Z92.89 - PERSONAL HISTORY OF OTHER MEDICAL TREATMENT SNOMED Code(s): 414590372 Comment: Keep levin in place. (8) Hypothyroidism Current Visit: Yes Status: Acute Code(s): E03.9 - HYPOTHYROIDISM, UNSPECIFIED SNOMED Code(s): 04098499 Comment: Continue current dose of synthroid. (9) Metastatic malignant neoplasm to prostate Current Visit: Yes Status: Acute Code(s): C79.82 - SECONDARY MALIGNANT NEOPLASM OF GENITAL ORGANS SNOMED Code(s): 02687594 Comment: Continue Zytiga. No cystoscopy per Dr. Parrish. I will try Dr. Stone's office again tomorrow to discuss zometa infusion. (10) DVT prophylaxis Current Visit: Yes Status: Acute Code(s): WPV3498 - SNOMED Code(s): 463572894 Comment: SCDs (11) DNR (do not resuscitate) Current Visit: Yes Status: Acute Status and Disposition: .
[2016-10-17] MEDS: Cyanocobalamin TAB* 500 MCG PO SCH (17:46)
[2016-10-18] MEDS: Cefepime(*) 1 GM in NS 0.9% 50 ML* 50 ML IVPB SCH (03:41)
[2016-10-18] MEDS: Levothyroxine TAB* 75 MCG TAB PO SCH (06:14)
[2016-10-18] MEDS ORDERED: predniSONE TAB* 10 MG PO SCH (08:30)
[2016-10-18 08:55] VITALS: BP 108/71
[2016-10-18] MEDS ORDERED: Methotrexate TAB* 2.5 MG PO SCH (09:00)
[2016-10-18] MEDS: ABIRATERONE 250 MG PO SCH (09:16)
[2016-10-18] MEDS: Ascorbic Acid TAB* 500 MG PO SCH (09:17)
[2016-10-18] MEDS: Cyanocobalamin TAB* 500 MCG PO SCH (09:17)
[2016-10-18] MEDS: Diltiazem CD CAP* 120 MG PO SCH (09:17)
[2016-10-18] MEDS: Famotidine TAB* 20 MG PO SCH (09:18)
[2016-10-18] MEDS: Gabapentin CAP(*) 100 MG PO SCH (09:18)
[2016-10-18] MEDS: Metoprolol Tartrate TAB* 25 MG PO SCH (09:19)
[2016-10-18] MEDS: Docusate CAP* 100 MG PO SCH (09:26)
[2016-10-18] MEDS: Folic Acid TAB* 1 MG PO SCH (10:31)
--- NOTE | 2016-10-18 17:52 | PN ---
Subjective Date of Service: 10/18/16 Interval History: pt is feeling well. He is ready to get back down to [facility]. He denies any pain. No SOB. Objective Vital Signs 10/17/16 10/17/16 10/17/16 20:00 20:13 20:14 Temperature 97 F 96.0 F Pulse Rate 85 Respiratory 17 16 Rate Blood Pressure 94/51 (mmHg) O2 Sat by Pulse 99 Oximetry 10/17/16 10/17/16 10/17/16 20:54 22:54 23:29 Temperature 97.3 F Pulse Rate 113 Respiratory 17 16 16 Rate Blood Pressure 125/72 (mmHg) O2 Sat by Pulse 98 Oximetry 10/18/16 10/18/16 10/18/16 07:30 08:00 09:18 Temperature 97.4 F Pulse Rate 93 Respiratory 16 13 16 Rate Blood Pressure 108/71 (mmHg) O2 Sat by Pulse 99 Oximetry 10/18/16 11:15 Temperature Pulse Rate Respiratory 16 Rate Blood Pressure (mmHg) O2 Sat by Pulse Oximetry Oxygen Devices in Use Now: None Appearance: Elderly male sitting up in bed, NAD Eyes: No Scleral Icterus Ears/Nose/Mouth/Throat: Mucous Membranes Moist Respiratory: Symmetrical Chest Expansion and Respiratory Effort, Clear to Auscultation Cardiovascular: NL Sounds; No Murmurs; No JVD, - - irregularly irregular, 2+ LE edema Abdominal: NL Sounds; No Tenderness; No Distention Extremities: No Clubbing, Cyanosis Skin: No Rash or Ulcers, No Nodules or Sclerosis Neurological: Alert and Oriented x 3 Result Diagrams: 10/16/16 05:31 10/16/16 05:31 Microbiology and Other Data: Microbiology 10/11/16 16:45 Urine Culture - Preliminary Urine Serratia Marcescens Assess/Plan/Problems-Billing Mr Rodriguez is an 85 yo M with hx of metastatic prostate cancer, AFib, hypothyroidism, CKD, necrotizing fasciitis of the R LE in 2012, urethroperineal fistula s/p chronic levin, spinal stenosis and recent admission for progressive weakness 2/2 spinal stenosis vs PMR 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 - Patient Problems (1) Bacteremia Status: Acute Code(s): R78.81 - BACTEREMIA SNOMED Code(s): 8885244 Comment: Change to cipro 500mg BID x7 days. Likely secondary to urinary source. (2) UTI (urinary tract infection) Status: Acute Comment: The patient has a serratia UTI that is catheter associated and present on admission- The patient will continue on cipro x 7 more days. (3) Hematuria Status: Acute Code(s): R31.9 - HEMATURIA, UNSPECIFIED SNOMED Code(s): 59869422 Comment: Resolved. (4) Polymyalgia rheumatica Status: Acute Code(s): M35.3 - POLYMYALGIA RHEUMATICA SNOMED Code(s): 45097737 Comment: Continue prednisone 30mg daily. Taper per Dr. Brady but monitor the CRP closely. (5) Weakness Status: Acute Code(s): R53.1 - WEAKNESS SNOMED Code(s): 99744278 Comment: ?paraneoplastic, PMR, spinal stenosis. Continue prednisone 30mg daily. Hold methotrexate for now. Back to [facility] today. (6) Afib Status: Acute Code(s): I48.91 - UNSPECIFIED ATRIAL FIBRILLATION SNOMED Code( s): 69598049 Comment: Continue metoprolol and diltiazem-HR is under decent control. No AC in the setting of past GI bleed. (7) Chronic indwelling Levin catheter Status: Acute Code(s): Z92.89 - PERSONAL HISTORY OF OTHER MEDICAL TREATMENT SNOMED Code(s): 843300444 Comment: Keep levin in place. (8) Hypothyroidism Status: Acute Code(s): E03.9 - HYPOTHYROIDISM, UNSPECIFIED SNOMED Code(s): 36573809 Comment: Continue current dose of synthroid. (9) Metastatic malignant neoplasm to prostate Status: Acute Code(s): C79.82 - SECONDARY MALIGNANT NEOPLASM OF GENITAL ORGANS SNOMED Code(s): 99136165 Comment: Continue Zytiga. I have asked the oncology PA to pass along to Dr. Stone to see the patient in [facility] next time he is on service. (10) DVT prophylaxis Status: Acute Code(s): CHR0838 - SNOMED Code(s): 413383678 Comment: SCDs (11) DNR (do not resuscitate) Status: Acute Status and Disposition: .
[2016-10-19 11:15] LABS: PSA Free 0.8 ng/mL; PSA Free/Total 0.11 ratio; PSA Total 7.1 ng/mL (<=7.2)
--- NOTE | 2016-10-19 20:26 | DS ---
CC: Dr. Laguna DISCHARGE SUMMARY: DATE OF ADMISSION: 10/11/16 DATE OF DISCHARGE: 10/18/16 PRIMARY CARE PROVIDER: Dr. Laguna. PRINCIPAL DIAGNOSES: 1. Hematuria - resolved likely secondary to urinary tract infection. 2. Serratia urinary tract infection - catheter associated - present on admission. 3. Pseudomonas bacteremia. SECONDARY DIAGNOSES: 1. 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 2. Atrial fibrillation. 3. Chronic Cole catheter. 4. Hypothyroidism. DISCHARGE MEDICATIONS: 1. Diltiazem CD 120 mg p.o. daily. 2. Dulcolax 10 mg p.o. daily p.r.n. constipation. 3. Vitamin C 500 mg p.o. daily. 4. Tylenol 650 mg p.o. q.6 hours p.r.n. pain. 5. Zytiga 1000 mg p.o. daily. 6. Synthroid 75 mcg p.o. daily. 7. Gabapentin 200 mg p.o. t.i.d. 8. Folic acid 1 mg p.o. daily. 9. Famotidine 20 mg p.o. twice daily. 10. Colace 100 mg p.o. b.i.d. 11. Multivitamin 1 tab p.o. b.i.d. 12. Metoprolol tartrate 75 mg p.o. b.i.d. 13. Milk of magnesia 30 mL p.o. q.6 hours p.r.n. constipation. 14. Senna 2 tablets p.o. q.h.s. p.r.n. constipation. 15. Prednisone 30 mg p.o. daily. 16. Vitamin B12, 1000 mcg p.o. daily (new). HOSPITAL COURSE: Mr. Rodriguez is an 85-year-old male who was initially hospitalized from 09/25/16 th rough 10/01/16 with weakness of his lower extremities. At that time, it was felt to be likely PMR t karoline there was concern for paraneoplastic syndrome leading to his weakness. The patient had been o n low-level prednisone and this was bumped up to 60 mg p.o. daily. The patient did have some improv ement and was admitted to [facility] on 10/01/16. On 03/24/17, the patient was readmitted to the medical service due to marked hematuria. The patient on re-admission to the medical floor, was found to hav e a serratia UTI that was catheter associated as well as Pseudomonas bacteremia. The Pseudomonas ba cteremia source was unclear. Ultimately, it felt that this was likely a urinary source that led to t he bacteremia. The patient was seen in consultation by Dr. Mohamud who agreed initially with cefep rick. Followup blood cultures have been negative and therefore, the patient on the day of discharge back to [facility] has been switched to Cipro 500 mg p.o. twice daily to complete seven more days. The pa tient in terms of the urinary tract infection had marked improvement in the hematuria for which he w as readmitted to the medical floor. He was seen in consultation by Dr. Parrish who did not want to perform cystoscopy given his comorbidities and current state. The hematuria resolved without any d iscrete intervention other than treating the urinary tract infection. In terms of the lower extremity weakness, the etiology of this is still not clear. Dr. Brady was co nsulted while the patient was acute in the hospital. He felt that while PMR was potential etiology, it seemed less likely as he has not been responding to high dose prednisone. 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 The decision was made to start tapering the dose of prednisone d own. I did have the opportunity to speak to Dr. Laguna who also spoke to Dr. Brady. Dr. Laguna notes that the patient on low doses of prednisone had marked increases in his CRP. We will need to cautiously monitor his CRP as the prednisone dose has been decreased to [address] Brady has recommended further decreasing the prednisone dose by 10 mg every 3 days until down to 10 mg and th en a slower taper from there. Again, the CRP is going to be monitored very closely. At this time, the patient is unable to bear weight on his legs, nor is he able to lift his legs off the bed. The patient, however, has been accepted back to [facility]. There was consideration that this could be a para neoplastic process. I have attempted to contact Dr. Stone, however, he has been away. I did leave a message with the Oncology PA to ask that he be seen by Dr. Stone while in [facility]. The patient also was due to have his Zometa infusion today, 10/18/16; however, as he is in the hospital, this was not given. This likely will be deferred until next week. FOLLOWUP CONCERNS: The patient is being discharged to [facility] today, 10/18/16. ACTIVITY LEVEL: As tolerated. DIET: Regular. CONDITION ON DISCHARGE: Stable. TIME SPENT: 35 minutes was spent discharging this patient. [id number]/[facility] #: [id number]
== END 2016-10-18 11:55 | DRG 699 ==
LOC: MED 12:34
PROVIDERS: ADMIT Internal Medicine; ATTEND Hospitalist
DX: T83.511A Infection and inflammatory reaction due to indwelling urethral catheter, initial encounter (principal); N36.0 Urethral fistula; C79.9 Secondary malignant neoplasm of unspecified site; G13.0 Paraneoplastic neuromyopathy and neuropathy; G72.0 Drug-induced myopathy; I48.91 Unspecified atrial fibrillation; R78.81 Bacteremia; B96.5 Pseudomonas (aeruginosa) (mallei) (pseudomallei) as the cause of diseases classified elsewhere; G62.9 Polyneuropathy, unspecified; R31.9 Hematuria, unspecified; N39.0 Urinary tract infection, site not specified; C61 Malignant neoplasm of prostate; B96.89 Other specified bacterial agents as the cause of diseases classified elsewhere; E03.9 Hypothyroidism, unspecified; Z85.820 Personal history of malignant melanoma of skin; M35.3 Polymyalgia rheumatica; N18.2 Chronic kidney disease, stage 2 (mild); M48.00 Spinal stenosis, site unspecified; Z88.0 Allergy status to penicillin; Z80.9 Family history of malignant neoplasm, unspecified; Z66 Do not resuscitate; R53.1 Weakness; Y73.1 Therapeutic (nonsurgical) and rehabilitative gastroenterology and urology devices associated with adverse incidents; Y92.9 Unspecified place or not applicable; Z92.3 Personal history of irradiation; Z79.52 Long term (current) use of systemic steroids; T38.0X5A Adverse effect of glucocorticoids and synthetic analogues, initial encounter
CPT/HCPCS: 36415; 71010; 74177; 80048; 81003; 81015; 82550; 82607; 84153; 84154; 84443; 85025; 85610; 85652; 86140; 87040; 87077; 87086; 87186; 87205; 94760; A9270-GY; J0692; J0696; J2543; J7512; Q9967

== ENCOUNTER 2016-10-18 09:17 | Inpatient (IN) | payer MEDICARE, BC ==
[2016-10-18] MEDS ORDERED: Acetaminophen TAB* 325 MG PO PRN (11:23)
[2016-10-18] MEDS ORDERED: Bisacodyl SUPP* 10 MG SUPP PR PRN (11:23)
[2016-10-18] MEDS ORDERED: Magnesium Hydroxide LIQ* 30 ML UDC PO PRN (11:23)
[2016-10-18] MEDS ORDERED: Senna TAB PO PRN (11:39)
[2016-10-18] MEDS: Gabapentin CAP(*) 100 MG PO SCH ×2 (13:36→20:05)
[2016-10-18] MEDS: Zinc Oxide 16% PASTE* (Butt Patse) 1 TUBE TOPICAL SCH ×2 (13:37→20:12)
--- NOTE | 2016-10-18 15:12 | HP ---
CC: Dr. Laguna; Dr. Parrish; Dr. Brady REHABILITATION ADMISSION: DATE OF ADMISSION: 10/18/16 PRIMARY CARE PROVIDER: Dr. Laguna. RHEUMATOLOGY: Dr. Brady. UROLOGY: Dr. Parrish. REASON FOR ADMISSION: Myopathy with bilateral lower extremity weakness. HISTORY OF PRESENT ILLNESS: This is an 85-year-old man with metastatic prostate cancer who was originally admitted to the hospital on 09/25/16 with weakness. Please refer to that admission history and physical and discharge summary for full details of his acute hospitalization. 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 In addition, his Cole catheter was changed and he began having hematuria and bleeding around the catheter. Because he needed to be on bed rest for ongoing bleeding, he was transferred back to the hospital on . Please see the [facility] discharge summary on that date for full details of that time period. Once back up in the hospital, he developed bacteremia which cultured out pseudomonas. He was put on IV cefepime. Repeat blood cultures have been negative to date and today he is transitioning to Cipro 500 mg b.i.d for 7 more days. In addition, his urine grew out serratia, which was also sensitive to cefepime. He was seen by Dr. Parrish, his primary urologist, and without requiring cystoscopy the hematuria resolved. He has; however, had urine leaking around his Cole catheter and has some skin irritation related to the moisture. Plan now is for him to continue using a Depends on the current Cole catheter that is in place. Dr. Brady from Rheumatology consulted. He recommended tapering the prednisone and stop the methotrexate. He has been going down by 10 mg every 3 days and starting today he is on 30 mg. The plan is to get him down to 10 mg and hold. His primary care provider has noted in the past in trying to taper prednisone that his CRP will rise, so his CRP will need to be monitored on a regular basis. He has not been on any anticoagulation despite a history of paroxysmal atrial fibrillation due to a history of GI bleeding in the past. He just has SCDs for DVT prophylaxis and has been rate controlled on his cardiac medications. Prior to admission to the hospital in early September he was independent, ambulating with a rolling walker and independent with his activities of daily living. With physical therapy at this time he requires a Destiny lift for transfers and maximum amount of assistance for bed mobility. He has; however, showed some improvement in being able to move his legs. With occupational therapy he has required a total amount of assistance for dressing and toileting. PAST MEDICAL HISTORY: 1. Metastatic prostate cancer. 2. Paroxysmal atrial fibrillation. 3. Hypothyroidism. 4. Chronic kidney disease stage 2. 5. History of necrotizing fascitis affecting the right lower extremity in 2012 which was complicated by urethroperineal fistula and required chronic Cole catheter insertion. 6. Lumbar spinal stenosis to a moderate degree. 7. History of melanoma, status post resection. 8. History of neuropathy. 9. Status post appendectomy. 10. Status post tonsillectomy. 11. Lower extremity weakness. 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 MEDICATIONS: 1. Zytiga 1000 mg daily. 2. Tylenol 650 mg q.4 hours p.r.n. 3. Vitamin C 500 mg daily. 4. Dulcolax p.r.n. 5. Cipro 500 mg b.i.d. for 7 more days. 6. Vitamin B12, 1000 mcg daily. 7. Diltiazem CD 120 mg daily. 8. Colace 100 mg b.i.d. 9. Pepcid 20 mg b.i.d. 10. Folate 100 mg daily. 11. Gabapentin 200 mg t.i.d. 12. Synthroid 75 mcg daily. 13. Milk of magnesia p.r.n. 14. Lopressor 75 mg b.i.d. 15. Prednisone 30 mg daily, this is day 1. 16. Senna 2 tablets q.h.s. p.r.n. constipation. ALLERGIES: PENICILLIN. FAMILY HISTORY: Both his parents had cancer. SOCIAL HISTORY: He lives with his in a 1 level home with 2 steps to enter. No smoking. Rare alcohol. His is his healthcare proxy if he cannot make decisions for himself. REVIEW OF SYSTEMS: See history of present illness, past medical history. The remainder of a 13-point review is completed. He has not had a bowel movement in 2 days. No other significant findings. PHYSICAL EXAMINATION GENERAL: Well developed, well nourished, appearing stated age. Mental Status: In no acute distress. Alert and oriented x3. VITAL SIGNS: Temperature 97.4, heart rate 93, respirations 16, oxygen saturation 99% on room air, and blood pressure 108/71. HEENT: Normocephalic and atraumatic. Oropharynx is clear. Dry mucous membranes. LUNGS: Clear to auscultation bilaterally. HEART: Irregularly irregular. ABDOMEN: Active bowel sounds. Soft, nontender, and nondistended. EXTREMITIES: No clubbing, cyanosis, or edema. GENITOURINARY: His Cole catheter is in place. There is some swelling around his groin. SKIN: There is redness on his scrotum and in his inner thighs. NEUROLOGIC: Upper extremity motor 4+/5 bilaterally. Bilateral lower extremity motor 4+/5. EHL dorsiflexion, knee extension, and knee flexion. Hip flexion is trace bilaterally. Sensation is intact in all 4 extremities. Cranial nerves II through XII are intact. IMPRESSION: An 85-year-old man with bilateral lower extremity weakness related to myopathy, which is possibly related to polymyalgia rheumatica, a paraneoplastic syndrome with superimposed steroid myopathy. He will be admitted to [facility] so that he can return to living at home. PLAN: 1. Myopathy. Continue to slowly wean down on his prednisone and follow up the CRP. Follow up with Dr. Brady as needed. 2. Bacteremia with pseudomonas. Continue Cipro 500 mg q.12 hours for 7 days. 3. Serratia urinary tract infection. This is already treated with cefepime. 4. Chronic Cole catheter. Follow up with Urology. 5. Skin irritation from moisture of urine. Will apply Desitin t.i.d. 6. Paroxysmal atrial fibrillation. Continue with his current cardiac medications. 7. Chronic kidney disease, followup complete metabolic panel on a regular basis. 8. Metastatic prostate cancer. Continue with Zytiga and chemo precautions. 9. Impaired mobility. Continue physical therapy for bed mobility, transfer of gait, and stair training, hopefully eventually using a rolling walker. 10. Impaired self-care. Continue with occupational therapy for ADL training and equipment evaluation. 11. Advanced directives. He has desire to be Do Not Resuscitate. His is his healthcare proxy if he cannot make decisions for himself. ESTIMATED LENGTH OF STAY: Three to four weeks. [id number]/CPS #: [id number] JONAH
[2016-10-18] MEDS: Ciprofloxacin TAB* 500 MG PO SCH (20:07)
[2016-10-18] MEDS: Metoprolol Tartrate TAB* 25 MG PO SCH (20:08)
[2016-10-18] MEDS: Famotidine TAB* 20 MG PO SCH (20:09)
[2016-10-18] MEDS: Docusate CAP* 100 MG PO SCH (20:10)
[2016-10-19] MEDS: Levothyroxine TAB* 75 MCG TAB PO SCH (05:11)
[2016-10-19] MEDS ORDERED: ABIRATERONE 250 MG PO SCH (06:00)
[2016-10-19 07:31] LABS: Add Diff/Slide Review? Slide Review Added; Comments Flag Yes; Hematocrit 39 % (42-52); Hemoglobin 13.1 g/dl (14.0-18.0); Mean Corpuscular HGB Conc 33 g/dl (31-36); Mean Corpuscular Hemoglobin 32 pg (27-31); Mean Corpuscular Volume 96 fL (80-94); Mean Platelet Volume 9 um3 (7.4-10.4); Red Cell Distribution Width 18 % (10.5-15); White Blood Count 8.3 10^3/ul (3.5-10.8)
[2016-10-19 07:41] LABS: Albumin 2.6 g/dL (3.2-5.2); BUN/Creatinine Ratio 36.8 (8-20); Calcium 7.5 mg/dL (8.6-10.3); EGFR African American 143.2 (>60); EGFR Non-African American 111.4 (>60); Globulin 2.4 g/dL (2-4); Total Bilirubin 0.7 mg/dL (0.2-1.0)
[2016-10-19 07:43] LABS: Potassium 4.3 mmol/L (3.5-5.0)
[2016-10-19 07:56] LABS: Eosinophils % 1 % (0-6); Immature Granulocytes 1 % (0-9); Neutrophil % 89 % (38-83); RBC Morphology Normal (Normal); Reactive Lymph % 1 % (0-6)
[2016-10-19] MEDS: Ciprofloxacin TAB* 500 MG PO SCH ×2 (09:31→21:04)
[2016-10-19] MEDS: Cyanocobalamin TAB* 500 MCG PO SCH (09:32)
[2016-10-19] MEDS: Diltiazem CD CAP* 120 MG PO SCH (09:32)
[2016-10-19] MEDS: Docusate CAP* 100 MG PO SCH ×3 (09:32→21:09)
[2016-10-19] MEDS: predniSONE TAB* 10 MG PO SCH (09:32)
[2016-10-19] MEDS: Famotidine TAB* 20 MG PO SCH ×2 (09:32→21:05)
[2016-10-19] MEDS: Gabapentin CAP(*) 100 MG PO SCH ×3 (09:33→21:06)
[2016-10-19] MEDS: Folic Acid TAB* 1 MG PO SCH (09:33)
[2016-10-19] MEDS: Ascorbic Acid TAB* 500 MG PO SCH (09:34)
[2016-10-19] MEDS: Zinc Oxide 16% PASTE* (Butt Patse) 1 TUBE TOPICAL SCH ×4 (09:39→20:44)
[2016-10-19] MEDS: Metoprolol Tartrate TAB* 25 MG PO SCH ×2 (09:55→21:05)
--- NOTE | 2016-10-19 10:32 | PMRUTEAM ---
PMRU: Goals Current Status: Nursing: Current Status Skin Deviations [Right Skin Tear Posterior Thigh] Skin Deviations [Groin] Rash Skin Deviations [Bilateral Leg Rash ] Skin Deviation Description [ Small skin tear Right Posterior Thigh] Skin Deviation Description [ no open areas. butt paste applied per order Groin] Skin Deviation Description [ inner thighs rash. butt paste applied per order Bilateral Leg] Physical Therapy: Current Status Bed Mobility Assistance max Assist Transfer Moblility Assistance max Assist x2 Ambulation Assistance unable Ambulation Assistive Devices Rolling Walker Stairs Assistance Not Tested Stairs Recommended Devices Two Rails Number of Stairs 5 Occupational Therapy: Current Status Upper Body Dressing Mod Assist,2 Person Assist Lower Body Dressing Total Assist,2 Person Assist Bathing Max Asst,2 Person Assist Toileting Total Assist,2 Person Assist Toilet Transfer Total Assist,2 Person Assist Eating Supervision Rec Therapy: Current Status Summary of Assessment and Pt. was admitted to the medical floor and returned Clinical Impression to PMRU. Visits continued when upstairs and will now that pt. is back on PMRU. Pt. has been open to recreation therapy services. Crossword puzzles were provided. Pt. presents as very pleasant and engaged in conversation. Treatment Goals Pt. will engage in recreation and leisure activities while on the unit. Treatment Plan Provide and encourage involvement in RT services. Meet with pt. daily for expression and support. Social Work: Current Status Discharge Plan return home with home care svs and family support Potential for Family Training pt's is involved and supportive Anticipated Discharge Home Destination Discharge With return home with home care svs and family support Goals: PHYSICAL THERAPY: INITIAL GOALS Modified independent bed mobility, transfers and ambulation using a rolling walker. Ascend 5 steps with 2 rails. Occupational Therapy: Initial Goals Goals to be Completed in (Days 30 ) Upper Body Bathing Routine Independent Lower Body Bathing Routine Modified Independent with Upper Body Dressing Routine Independent Lower Body Dressing Routine Modified Independent with Toilet Hygeine and Clothing Modified Independent with Management Routine Toilet Transfer Routine Modified Independent with Tub Transfer Routine Modified Independent with Functional Transfers for ADL Modified Independent with Grooming Routine Independent Feeding Routine Independent Nutrition: Goals Intervention Goals 1. improved po intaketo >50% of meals and supplements consistently 2. maintenance of lean body mass without add'l wt gain 3. maintenance of bowel regularity; no c/o constipation (or diarrhea) 4. maintenance of skin integrity; no evidence of breakdown/open areas Social Work: Goals Discharge Plan return home with home care svs and family support Potential for Family Training pt's is involved and supportive Anticipated Discharge Home Destination Discharge With return home with home care svs and family support Care Plan: Care Plan Cardiovascular-Improve/Maintain Start: 10/19/16 02:54 Freq: DAILY@0400,1600 Status: Active Target: Activity Type Activity Date Activity User E-Sign Co-Sign Detail Recorded Client Recorded Date Recorded By Document 10/19/16 02:55 [id number] 10/19/16 02:56 [id number] 10/19/16 02:55 Outcome: Cardiovascular Current Cardiovascular Outcome/Goal Maintain/ achieve baseline HR, BP , Perfusion Free of abnormal cardiac symptoms Progression Towards Outcome/Goal Progressing Mobility-Improve/Maintain Start: 10/19/16 02:54 Freq: DAILY@0400,1600 Status: Active Target: Activity Type Activity Date Activity User E-Sign Co-Sign Detail Recorded Client Recorded Date Recorded By Document 10/19/16 02:55 [id number] 10/19/16 02:56 [id number] 10/19/16 02:55 Outcome: Mobility Outcome/Goals Improve Mobility Status Progression Toward Outcome/Goals Progressing Skin-Improve/Maintain Start: 10/19/16 02:54 Freq: DAILY@0400,1600 Status: Active Target: Activity Type Activity Date Activity User E-Sign Co-Sign Detail Recorded Client Recorded Date Recorded By Document 10/19/16 02:55 [id number] 10/19/16 02:56 [id number] 10/19/16 02:55 Outcome: Skin Outcome/Goals Maintain/ Improve Skin Intergrity Free from Decubitus Maintain/ Improve Wound Status Progression Toward Outcome/Goals Progressing Medicine Note: Length of Stay: [4 weeks] Anticipated Discharge Destination: Home Tentative Discharge Date: [11/15/16] Discharged to: [home]
[2016-10-19] MEDS: Clotrimazole 1% CREAM* 45 GM TOPICAL SCH ×3 (14:12→20:45)
[2016-10-20] MEDS: ABIRATERONE 250 MG PO SCH (04:42)
[2016-10-20] MEDS: Levothyroxine TAB* 75 MCG TAB PO SCH (06:17)
[2016-10-20] MEDS: Famotidine TAB* 20 MG PO SCH ×2 (09:04→21:03)
[2016-10-20] MEDS: predniSONE TAB* 10 MG PO SCH (09:05)
[2016-10-20] MEDS: Diltiazem CD CAP* 120 MG PO SCH (09:05)
[2016-10-20] MEDS: Ciprofloxacin TAB* 500 MG PO SCH ×2 (09:05→21:03)
[2016-10-20] MEDS: Gabapentin CAP(*) 100 MG PO SCH ×3 (09:06→21:04)
[2016-10-20] MEDS: Folic Acid TAB* 1 MG PO SCH (09:07)
[2016-10-20] MEDS: Ascorbic Acid TAB* 500 MG PO SCH (09:35)
[2016-10-20] MEDS: Cyanocobalamin TAB* 500 MCG PO SCH (09:35)
[2016-10-20] MEDS: Docusate CAP* 100 MG PO SCH ×2 (09:35→21:06)
[2016-10-20] MEDS: Metoprolol Tartrate TAB* 25 MG PO SCH ×2 (09:38→21:06)
[2016-10-20] MEDS: Zinc Oxide 16% PASTE* (Butt Patse) 1 TUBE TOPICAL SCH ×3 (09:45→21:44)
[2016-10-20] MEDS: Clotrimazole 1% CREAM* 45 GM TOPICAL SCH ×2 (09:45→21:44)
[2016-10-21] MEDS: ABIRATERONE 250 MG PO SCH (05:21)
[2016-10-21] MEDS: Levothyroxine TAB* 75 MCG TAB PO SCH (06:16)
[2016-10-21 06:28] LABS: Hematocrit 39 % (42-52); Hemoglobin 13.1 g/dl (14.0-18.0); Mean Corpuscular HGB Conc 33 g/dl (31-36); Mean Corpuscular Hemoglobin 32 pg (27-31); Mean Corpuscular Volume 96 fL (80-94); Mean Platelet Volume 9 um3 (7.4-10.4); Red Blood Count 4.11 10^6/ul (4.0-5.4); Red Cell Distribution Width 18 % (10.5-15); White Blood Count 7.7 10^3/ul (3.5-10.8)
[2016-10-21 06:30] LABS: Add Diff/Slide Review? Slide Review Added; Comments Flag Yes
[2016-10-21 06:45] LABS: Albumin 2.6 g/dL (3.2-5.2); BUN/Creatinine Ratio 42.5 (8-20); Calcium 7.8 mg/dL (8.6-10.3); EGFR Non-African American 102.6 (>60); Globulin 2.4 g/dL (2-4); Potassium 4.4 mmol/L (3.5-5.0); Total Bilirubin 0.7 mg/dL (0.2-1.0)
[2016-10-21 06:46] LABS: C Reactive Protein 2.61 mg/L (< 5.00)
[2016-10-21] MEDS: Cyanocobalamin TAB* 500 MCG PO SCH (09:26)
[2016-10-21] MEDS: Folic Acid TAB* 1 MG PO SCH (09:26)
[2016-10-21] MEDS: predniSONE TAB* 20 MG PO SCH (09:27)
[2016-10-21] MEDS: Ascorbic Acid TAB* 500 MG PO SCH (09:27)
[2016-10-21] MEDS: Famotidine TAB* 20 MG PO SCH ×2 (09:27→21:06)
[2016-10-21] MEDS: Diltiazem CD CAP* 120 MG PO SCH (09:27)
[2016-10-21] MEDS: Gabapentin CAP(*) 100 MG PO SCH ×3 (09:27→21:07)
[2016-10-21] MEDS: Ciprofloxacin TAB* 500 MG PO SCH ×2 (09:27→21:05)
[2016-10-21] MEDS: Metoprolol Tartrate TAB* 25 MG PO SCH ×2 (09:27→21:06)
[2016-10-21] MEDS: Zinc Oxide 16% PASTE* (Butt Patse) 1 TUBE TOPICAL SCH ×3 (09:28→21:09)
[2016-10-21] MEDS: Clotrimazole 1% CREAM* 45 GM TOPICAL SCH ×2 (09:28→21:08)
[2016-10-21] MEDS: Docusate CAP* 100 MG PO SCH ×2 (09:30→21:09)
[2016-10-21] MEDS ORDERED: Metoprolol Tartrate TAB* 25 MG ONE (10:16)
[2016-10-22] MEDS: ABIRATERONE 250 MG PO SCH (05:25)
[2016-10-22] MEDS: Levothyroxine TAB* 75 MCG TAB PO SCH (06:39)
[2016-10-22] MEDS: Ascorbic Acid TAB* 500 MG PO SCH (08:21)
[2016-10-22] MEDS: Folic Acid TAB* 1 MG PO SCH (08:21)
[2016-10-22] MEDS: Famotidine TAB* 20 MG PO SCH ×2 (08:21→21:25)
[2016-10-22] MEDS: Metoprolol Tartrate TAB* 25 MG PO SCH ×2 (08:21→21:26)
[2016-10-22] MEDS: predniSONE TAB* 20 MG PO SCH (08:22)
[2016-10-22] MEDS: Cyanocobalamin TAB* 500 MCG PO SCH (08:23)
[2016-10-22] MEDS: Docusate CAP* 100 MG PO SCH ×2 (08:23→20:04)
[2016-10-22] MEDS: Diltiazem CD CAP* 120 MG PO SCH (08:23)
[2016-10-22] MEDS: Gabapentin CAP(*) 100 MG PO SCH ×3 (08:23→21:26)
[2016-10-22] MEDS: Ciprofloxacin TAB* 500 MG PO SCH ×2 (08:23→21:29)
[2016-10-22] MEDS: Clotrimazole 1% CREAM* 45 GM TOPICAL SCH ×2 (09:19→21:29)
[2016-10-22] MEDS: Zinc Oxide 16% PASTE* (Butt Patse) 1 TUBE TOPICAL SCH ×3 (09:19→21:29)
--- NOTE | 2016-10-22 12:31 | PMRUTEAM ---
PMRU: Goals Current Status: Nursing: Current Status Skin Deviations [Left Hip] Abrasion Skin Deviations [Right Skin Tear Posterior Thigh] Skin Deviations [Groin] Rash Skin Deviations [Bilateral Leg Bruise ] Skin Deviation Description [ Zinc oxide applied to scratch on L lateral hip Left Hip] Skin Deviation Description [ healing Right Posterior Thigh] Skin Deviation Description [ Cream applied per MD order Groin] Skin Deviation Description [ inner thighs Bilateral Leg] Physical Therapy: Current Status Bed Mobility Assistance Mod Assist,Max Assist,Total Assist Transfer Moblility Assistance Total Assist,2 or More Person Assist Transfer/Bed Mobility EZ Stand,Destiny Lift Recommended Devices Ambulation Assistance Unable Ambulation Assistive Devices Rolling Walker Stairs Assistance Not Tested Stairs Recommended Devices Two Rails Number of Stairs 5 Curb Not Tested Wheelchair Distance (ft) 150 Occupational Therapy: Current Status Upper Body Dressing Mod Assist Lower Body Dressing Total Assist,2 Person Assist Bathing Max Asst,2 Person Assist Toileting Total Assist,2 Person Assist Toilet Transfer Total Assist,2 Person Assist Toilet Transfer Progress EZ STAND during the day. DESTINY at night. Shower Transfer Progress Not yet attempted. Eating Supervision Eating Progress set-up/independent Rec Therapy: Current Status Summary of Assessment and RT assessment complete and pt. is aware of Clinical Impression services. Pt. has been engaged in conversation and open to leisure visits. Pt. has leisure activities in her room to engage in - crossword puzzles. Treatment Goals Pt. will engage in recreation and leisure activities while on the unit. Treatment Plan Provide and encourage involvement in RT services. Meet with pt. daily for expression and support. Social Work: Current Status Discharge Plan return home with home care svs and family support Potential for Family Training pt's is involved and supportive Anticipated Discharge Home Destination Discharge With home care svs and family support Nutrition: Current Status Monitoring pt's appetite remains poor; averaging only <25% of meals consumed. [place] diet in place; pt aware of alternate items available for meals and snacks, but he cont to prefer Ensure Enlive, which he is drinking 3-4x/day. Cont w/daily BMs. Skin remains intact, but he is at high risk for breakdown. Goals as outlined below. Goals: Physical Therapy: Initial Goals Bed Mobility Assistance Independent Transfer Mobility Assistance Independent Transfer/Bed Mobility Rolling Walker Recommended Devices Ambulation Independent Ambulation Recommended Devices Rolling Walker Ambulation Distance 150 Stairs Assistance Independent Stair Recommended Devices Two Rails Number of Stairs 2 Physical Therapy: Updated Goals Bed Mobility Assistance Independent Transfer Mobility Assistance Independent Transfer/Bed Mobility Rolling Walker Recommended Devices Ambulation Assistance Independent Ambulation Assistive Devices Rolling Walker Ambulation Distance (ft) 150 Stairs Assistance Independent Stairs Recommended Devices Two Rails Number of Stairs 2 Occupational Therapy: Initial Goals Goals to be Completed in (Days 30 ) Upper Body Bathing Routine Independent Lower Body Bathing Routine Modified Independent with Upper Body Dressing Routine Independent Lower Body Dressing Routine Modified Independent with Toilet Hygeine and Clothing Modified Independent with Management Routine Toilet Transfer Routine Modified Independent with Tub Transfer Routine Modified Independent with Functional Transfers for ADL Modified Independent with Grooming Routine Independent Feeding Routine Independent Nutrition: Goals Intervention Goals 1. improved po intaketo >50% of meals and supplements consistently 2. maintenance of lean body mass without add'l wt gain 3. maintenance of bowel regularity; no c/o constipation (or diarrhea) 4. maintenance of skin integrity; no evidence of breakdown/open areas Social Work: Goals Discharge Plan return home with home care svs and family support Potential for Family Training pt's is involved and supportive Anticipated Discharge Home Destination Discharge With home care svs and family support Care Plan: Care Plan ADL's - Improve/Maintain Start: 10/21/16 10:54 Freq: DAILY Status: Active Target: Activity Type Activity Date Activity User E-Sign Co-Sign Detail Recorded Client Recorded Date Recorded By Document 10/21/16 10:54 [id number] [email or web address] 10/21/16 10:54 [id number] 10/21/16 10:54 PMRU Outcome: ADL's/ADL Transfers Orders/Interventions Occupational Therapy Evaluation & Treatment Device Yes Patient to receive OT 5x/wk for 60-120 Therex min/day Self Care Management Group Therapy UE/LE ADL's with Assist Yes: mod I ADL Transfers with Assist Yes: mod I Toileting: Transfers,Clothing Management Yes: mod I ,Hygeine w/Assist Progression Toward Outcome/Goals Progressing Cardiovascular-Improve/Maintain Start: 10/19/16 02:54 Freq: DAILY Status: Active Target: Activity Type Activity Date Activity User E-Sign Co-Sign Detail Recorded Client Recorded Date Recorded By Document 10/22/16 11:19 [id number] 10/22/16 11:20 [id number] 10/22/16 11:19 Outcome: Cardiovascular Current Cardiovascular Outcome/Goal Maintain/ achieve baseline HR, BP , Perfusion Progression Towards Outcome/Goal Progressing Mobility- Improve/Maintain Start: 10/19/16 15:25 Freq: DAILY Status: Active Target: Activity Type Activity Date Activity User E-Sign Co-Sign Detail Recorded Client Recorded Date Recorded By Document 10/21/16 12:15 [id number] [id number] 10/21/16 12:15 [id number] 10/21/16 12:15 PMRU Outcome: Mobility Physical Therapy Evaluation and Yes Treatment Activity OOB with Assistance Yes Device Yes Assistance Yes Patient to be seen 5x/wk for 60-120 min/ Therex day for: Mobility Training Gait Training W/C Mobility Balance Outcome/Goals Maintain/ Achieve Baseline Mobility Status Improve Mobility Status Demonstrates Proper Use of Assistive Devices Free from Complications of Immobility Progression Toward Outcome/Goals Progressing Bed Mobility Yes: independent Transfers Yes: independent with rolling walker. Gait x ft Yes: independent with rolling walker 150' Up/Down Stairs Yes: independent up/ down 5 stairs with bilateral rails. Mobility-Improve/Maintain Start: 10/19/16 02:54 Freq: DAILY Status: Active Target: Activity Type Activity Date Activity User E-Sign Co-Sign Detail Recorded Client Recorded Date Recorded By Document 10/22/16 11:19 [id number] 10/22/16 11:20 [id number] 10/22/16 11:19 Outcome: Mobility Outcome/Goals Improve Mobility Status Progression Toward Outcome/Goals Progressing Skin-Improve/Maintain Start: 10/19/16 02:54 Freq: DAILY Status: Active Target: Activity Type Activity Date Activity User E-Sign Co-Sign Detail Recorded Client Recorded Date Recorded By Document 10/22/16 11:19 [id number] 10/22/16 11:20 [id number] 10/22/16 11:19 Outcome: Skin Outcome/Goals Maintain/ Improve Skin Intergrity Progression Toward Outcome/Goals Progressing Medicine Note: Length of Stay: 3 1/2 weeks Anticipated Discharge Destination: Home Tentative Discharge Date: 11/15/16 Discharged to: Home
[2016-10-23] MEDS: ABIRATERONE 250 MG PO SCH (05:51)
[2016-10-23] MEDS: Levothyroxine TAB* 75 MCG TAB PO SCH (06:20)
[2016-10-23] MEDS: Famotidine TAB* 20 MG PO SCH ×2 (08:56→21:15)
[2016-10-23] MEDS: predniSONE TAB* 20 MG PO SCH (08:56)
[2016-10-23] MEDS: Ciprofloxacin TAB* 500 MG PO SCH ×2 (08:56→21:15)
[2016-10-23] MEDS: Ascorbic Acid TAB* 500 MG PO SCH (08:56)
[2016-10-23] MEDS: Metoprolol Tartrate TAB* 25 MG PO SCH ×2 (08:57→21:14)
[2016-10-23] MEDS: Gabapentin CAP(*) 100 MG PO SCH ×3 (08:57→21:15)
[2016-10-23] MEDS: Diltiazem CD CAP* 120 MG PO SCH (08:58)
[2016-10-23] MEDS: Cyanocobalamin TAB* 500 MCG PO SCH (08:58)
[2016-10-23] MEDS: Zinc Oxide 16% PASTE* (Butt Patse) 1 TUBE TOPICAL SCH ×3 (08:58→21:17)
[2016-10-23] MEDS: Clotrimazole 1% CREAM* 45 GM TOPICAL SCH ×2 (08:58→21:16)
[2016-10-23] MEDS: Folic Acid TAB* 1 MG PO SCH (08:58)
[2016-10-23] MEDS: Docusate CAP* 100 MG PO SCH ×2 (09:05→21:12)
[2016-10-24] MEDS: ABIRATERONE 250 MG PO SCH (04:54)
[2016-10-24] MEDS: Levothyroxine TAB* 75 MCG TAB PO SCH (06:44)
[2016-10-24 06:50] LABS: Hematocrit 37 % (42-52); Hemoglobin 12.6 g/dl (14.0-18.0); Mean Corpuscular HGB Conc 34 g/dl (31-36); Mean Corpuscular Hemoglobin 32 pg (27-31); Mean Corpuscular Volume 96 fL (80-94); Mean Platelet Volume 8 um3 (7.4-10.4); Red Cell Distribution Width 18 % (10.5-15); White Blood Count 5.6 10^3/ul (3.5-10.8)
[2016-10-24 06:51] LABS: Add Diff/Slide Review? Slide Review Added; Comments Flag Yes
[2016-10-24] MEDS: Ciprofloxacin TAB* 500 MG PO SCH ×2 (08:41→21:37)
[2016-10-24] MEDS: Gabapentin CAP(*) 100 MG PO SCH ×3 (08:41→21:37)
[2016-10-24] MEDS: Metoprolol Tartrate TAB* 25 MG PO SCH ×2 (08:41→21:38)
[2016-10-24] MEDS: Ascorbic Acid TAB* 500 MG PO SCH (08:42)
[2016-10-24] MEDS: Folic Acid TAB* 1 MG PO SCH (08:42)
[2016-10-24] MEDS: Diltiazem CD CAP* 120 MG PO SCH (08:42)
[2016-10-24] MEDS: Famotidine TAB* 20 MG PO SCH ×2 (08:42→21:35)
[2016-10-24] MEDS: predniSONE TAB* 20 MG PO SCH (08:42)
[2016-10-24] MEDS: Cyanocobalamin TAB* 500 MCG PO SCH (08:43)
[2016-10-24] MEDS: Docusate CAP* 100 MG PO SCH ×2 (08:43→21:43)
[2016-10-24] MEDS: Clotrimazole 1% CREAM* 45 GM TOPICAL SCH ×2 (10:28→21:43)
[2016-10-24] MEDS: Zinc Oxide 16% PASTE* (Butt Patse) 1 TUBE TOPICAL SCH ×3 (10:28→21:43)
[2016-10-25] MEDS: ABIRATERONE 250 MG PO SCH (05:13)
[2016-10-25] MEDS: Levothyroxine TAB* 75 MCG TAB PO SCH (06:34)
[2016-10-25] MEDS: predniSONE TAB* 20 MG PO SCH (09:21)
[2016-10-25] MEDS: Diltiazem CD CAP* 120 MG PO SCH (09:21)
[2016-10-25] MEDS: Gabapentin CAP(*) 100 MG PO SCH ×3 (09:22→20:27)
[2016-10-25] MEDS: Ciprofloxacin TAB* 500 MG PO SCH (09:22)
[2016-10-25] MEDS: Ascorbic Acid TAB* 500 MG PO SCH (09:22)
[2016-10-25] MEDS: Cyanocobalamin TAB* 500 MCG PO SCH (09:22)
[2016-10-25] MEDS: Docusate CAP* 100 MG PO SCH ×2 (09:22→20:27)
[2016-10-25] MEDS: Folic Acid TAB* 1 MG PO SCH (09:23)
[2016-10-25] MEDS: Metoprolol Tartrate TAB* 25 MG PO SCH ×2 (09:23→20:26)
[2016-10-25] MEDS: Famotidine TAB* 20 MG PO SCH ×2 (09:23→20:27)
[2016-10-25] MEDS: Clotrimazole 1% CREAM* 45 GM TOPICAL SCH ×2 (10:12→20:28)
[2016-10-25] MEDS: Zinc Oxide 16% PASTE* (Butt Patse) 1 TUBE TOPICAL SCH ×4 (10:12→20:28)
[2016-10-26] MEDS: Levothyroxine TAB* 75 MCG TAB PO SCH (05:41)
[2016-10-26] MEDS: ABIRATERONE 250 MG PO SCH (05:42)
[2016-10-26] MEDS: Clotrimazole 1% CREAM* 45 GM TOPICAL SCH ×2 (09:04→21:06)
[2016-10-26] MEDS: Docusate CAP* 100 MG PO SCH ×2 (09:05→21:06)
[2016-10-26] MEDS: Ascorbic Acid TAB* 500 MG PO SCH (09:12)
[2016-10-26] MEDS: Folic Acid TAB* 1 MG PO SCH (09:12)
[2016-10-26] MEDS: Famotidine TAB* 20 MG PO SCH ×2 (09:12→21:25)
[2016-10-26] MEDS: Gabapentin CAP(*) 100 MG PO SCH ×3 (09:13→21:26)
[2016-10-26] MEDS: predniSONE TAB* 20 MG PO SCH (09:14)
[2016-10-26] MEDS: Metoprolol Tartrate TAB* 25 MG PO SCH ×2 (09:14→21:26)
[2016-10-26] MEDS: Zinc Oxide 16% PASTE* (Butt Patse) 1 TUBE TOPICAL SCH ×3 (09:15→21:34)
[2016-10-26] MEDS: Cyanocobalamin TAB* 500 MCG PO SCH (09:15)
[2016-10-26] MEDS: Diltiazem CD CAP* 120 MG PO SCH (09:15)
[2016-10-27] MEDS: ABIRATERONE 250 MG PO SCH (05:45)
[2016-10-27] MEDS: Levothyroxine TAB* 75 MCG TAB PO SCH (06:35)
[2016-10-27] MEDS: Docusate CAP* 100 MG PO SCH ×2 (07:52→21:11)
[2016-10-27] MEDS: Folic Acid TAB* 1 MG PO SCH (08:36)
[2016-10-27] MEDS: Metoprolol Tartrate TAB* 25 MG PO SCH ×2 (08:36→21:07)
[2016-10-27] MEDS: Ascorbic Acid TAB* 500 MG PO SCH (08:36)
[2016-10-27] MEDS: Famotidine TAB* 20 MG PO SCH ×2 (08:36→21:07)
[2016-10-27] MEDS: Diltiazem CD CAP* 120 MG PO SCH (08:36)
[2016-10-27] MEDS: Cyanocobalamin TAB* 500 MCG PO SCH (08:38)
[2016-10-27] MEDS: Gabapentin CAP(*) 100 MG PO SCH ×3 (08:38→21:07)
[2016-10-27] MEDS: predniSONE TAB* 20 MG PO SCH (08:39)
[2016-10-27] MEDS: Zinc Oxide 16% PASTE* (Butt Patse) 1 TUBE TOPICAL SCH ×3 (11:18→21:13)
[2016-10-27] MEDS: Clotrimazole 1% CREAM* 45 GM TOPICAL SCH ×2 (11:18→21:13)
[2016-10-28] MEDS: ABIRATERONE 250 MG PO SCH (05:05)
[2016-10-28] MEDS: Levothyroxine TAB* 75 MCG TAB PO SCH (06:10)
[2016-10-28 08:10] LABS: Hematocrit 37 % (42-52); Hemoglobin 12.2 g/dl (14.0-18.0); Mean Corpuscular HGB Conc 33 g/dl (31-36); Mean Corpuscular Hemoglobin 33 pg (27-31); Mean Corpuscular Volume 97 fL (80-94); Mean Platelet Volume 9 um3 (7.4-10.4); Red Blood Count 3.75 10^6/ul (4.0-5.4); Red Cell Distribution Width 19 % (10.5-15); White Blood Count 8.4 10^3/ul (3.5-10.8)
[2016-10-28 08:13] LABS: Albumin 2.5 g/dL (3.2-5.2); BUN/Creatinine Ratio 38.8 (8-20); C Reactive Protein 102.32 mg/L (< 5.00); Calcium 8.4 mg/dL (8.6-10.3); EGFR African American 118.7 (>60); EGFR Non-African American 92.3 (>60); Globulin 2.4 g/dL (2-4); Potassium 4.1 mmol/L (3.5-5.0); Total Bilirubin 0.9 mg/dL (0.2-1.0); Total Protein 4.9 g/dL (6.4-8.9)
[2016-10-28] MEDS: Gabapentin CAP(*) 100 MG PO SCH ×3 (09:17→20:25)
[2016-10-28] MEDS: Folic Acid TAB* 1 MG PO SCH (09:17)
[2016-10-28] MEDS: Docusate CAP* 100 MG PO SCH ×2 (09:17→20:24)
[2016-10-28] MEDS: Ascorbic Acid TAB* 500 MG PO SCH (09:17)
[2016-10-28] MEDS: Famotidine TAB* 20 MG PO SCH ×2 (09:17→20:25)
[2016-10-28] MEDS: Metoprolol Tartrate TAB* 25 MG PO SCH ×2 (09:17→20:25)
[2016-10-28] MEDS: Diltiazem CD CAP* 120 MG PO SCH (09:18)
[2016-10-28] MEDS: Cyanocobalamin TAB* 500 MCG PO SCH (09:18)
[2016-10-28] MEDS: Clotrimazole 1% CREAM* 45 GM TOPICAL SCH ×2 (09:18→23:11)
[2016-10-28] MEDS: predniSONE TAB* 20 MG PO SCH (09:22)
[2016-10-28] MEDS: Zinc Oxide 16% PASTE* (Butt Patse) 1 TUBE TOPICAL SCH ×3 (09:22→23:11)
[2016-10-28 10:44] LABS: Add Diff/Slide Review? Slide Review Added; Comments Flag Yes
[2016-10-28] MEDS ORDERED: Zinc Oxide 40% (TOPICAL)* TUBE TOPICAL SCH (21:00)
[2016-10-29] MEDS: Levothyroxine TAB* 75 MCG TAB PO SCH (05:50)
[2016-10-29 06:21] LABS: Hematocrit 34 % (42-52); Hemoglobin 11.2 g/dl (14.0-18.0); Mean Corpuscular HGB Conc 33 g/dl (31-36); Mean Corpuscular Hemoglobin 32 pg (27-31); Mean Corpuscular Volume 97 fL (80-94); Mean Platelet Volume 8 um3 (7.4-10.4); Red Blood Count 3.47 10^6/ul (4.0-5.4); Red Cell Distribution Width 19 % (10.5-15); White Blood Count 7.1 10^3/ul (3.5-10.8)
[2016-10-29 07:01] VITALS: BP 144/93
[2016-10-29] MEDS: ABIRATERONE 250 MG PO SCH (08:22)
--- NOTE | 2016-10-31 01:44 | DS ---
DISCHARGE SUMMARY: DATE OF ADMISSION: 10/18/16 DATE OF DISCHARGE: 10/29/16 DISCHARGE DIAGNOSES: 1. Lower GI bleed. 2. Pseudomonas bacteremia. 3. Steroid myopathy. 4. Paraneoplastic syndrome. 5. Polymyalgia rheumatica. 6. Atrial fibrillation. 7. 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 HISTORY OF ILLNESS AND HOSPITAL COURSE: For complete history of the events leading up to his rehab stay, please see the history and physical dictated by Dr. Charis Chadwick on 10/18/16. While on the rehab unit, the patient was noted to have thrombocytopenia, but otherwise was medically stable. He has finished his course of Cipro for his pseudomonas bacteremia. His prednisone was continued. C-reactive protein on 10/21/16 was 2.61. He was working with physical therapy and felt to be stable. He had a hemoglobin and hematocrit of 12 and 37 on 10/24/16. On 10/28/16, his hemoglobin was 12 and hematocrit was 37. His C-reactive protein; however, had risen to 102.32. The evening of 0 10/28/16, he was passing small clots with his bowel movements. A CBC was ordered for the morning. However, at 7:00 a.m., he had a large amount of blood passing per rectum. Because of the amount of blood, it was decided to call a CAT Team. The patient was transferred to the intensive care unit on 10/29/16. Please note that the patient did get physical therapy and occupational therapy while on the rehab unit. He had been making gains. He was able to stand with assistance while on the rehab unit and maintain standing in the parallel bars. The patient was discharged to the intensive care unit. DISCHARGE DIET: N.p.o. DISCHARGE MEDICATIONS: Per the intensive care unit staff. [id number]/[facility] #: [id number]
== END 2016-10-29 09:21 | DRG 92 ==
LOC: PMRU 11:51 → ICU 10-29 08:44
PROVIDERS: ADMIT Physical Medicine & Rehabilitation; ATTEND Physical Medicine & Rehabilitation
PROC: F07Z5ZZ Bed Mobility Treatment (ICD-10-PCS; principal; 2016-10-18)
PROC: F07Z9ZZ Gait Training/Functional Ambulation Treatment (ICD-10-PCS; 2016-10-18)
PROC: F07Z8ZZ Transfer Training Treatment (ICD-10-PCS; 2016-10-18)
PROC: F08Z1ZZ Dressing Techniques Treatment (ICD-10-PCS; 2016-10-18)
PROC: F08Z0ZZ Bathing/Showering Techniques Treatment (ICD-10-PCS; 2016-10-18)
PROC: F08Z3ZZ Feeding/Eating Treatment (ICD-10-PCS; 2016-10-18)
DX: G72.0 Drug-induced myopathy (principal); N39.0 Urinary tract infection, site not specified; G13.0 Paraneoplastic neuromyopathy and neuropathy; D69.6 Thrombocytopenia, unspecified; I48.0 Paroxysmal atrial fibrillation; K92.2 Gastrointestinal hemorrhage, unspecified; T38.7X5D Adverse effect of androgens and anabolic congeners, subsequent encounter; B96.5 Pseudomonas (aeruginosa) (mallei) (pseudomallei) as the cause of diseases classified elsewhere; C61 Malignant neoplasm of prostate; E03.9 Hypothyroidism, unspecified; N18.2 Chronic kidney disease, stage 2 (mild); M48.06 Spinal stenosis, lumbar region; M35.3 Polymyalgia rheumatica; Z79.1 Long term (current) use of non-steroidal anti-inflammatories (NSAID); Z85.820 Personal history of malignant melanoma of skin; Z79.52 Long term (current) use of systemic steroids; Z79.899 Other long term (current) drug therapy; Z88.0 Allergy status to penicillin; Z80.9 Family history of malignant neoplasm, unspecified
CPT/HCPCS: 36415; 80053; 85025; 85027; 86140; 86850; 86900; 86901; 86922; A9270-GY; J7512; P9040